=== PATIENT | female | born 1955 | race Two or more races ===

== ENCOUNTER 2018-11-28 08:58 | Inpatient (IN) | payer OTHER ==
[2018-11-28] MEDS ORDERED: SODIUM CHLORIDE 500 ML IV STA (10:18)
[2018-11-28] MEDS ORDERED: ACETAMINOPHEN 1000 MG/100 ML VIAL (NON FORMULARY) IVPB ONE (10:24)
[2018-11-28] MEDS ORDERED: ACETAMINOPHEN INJECTION 100 ML IVPB ONE (10:42)
[2018-11-28 11:01] LABS: BASO % 0.3 % (0-2.0); EOS % 1.8 % (0-4.5); HEMATOCRIT 29.2 % (32.4-45.2); HEMOGLOBIN 10.2 GM/dL (10.7-15.3); LYMPH % 20.2 % (8-40); MCH 30.3 pg (25.7-33.7); MEAN CELL VOLUME 86.6 fl (80-96); MEAN PLT VOLUME 7.7 fl (7.5-11.1); MONO % 5.6 % (3.8-10.2); NEUT % 72.1 % (42.8-82.8); PLATELET COUNT 282 K/MM3 (134-434); RBC 3.37 M/mm3 (3.60-5.2); RDW 14.8 % (11.6-15.6); WHITE BLOOD COUNT 8.5 K/mm3 (4.0-10.0)
[2018-11-28 11:24] LABS: INR 1.24 (0.83-1.09); PROTHROMBIN TIME (PATIENT) 14.7 SEC (9.7-13.0)
[2018-11-28 11:30] LABS: ALBUMIN 3.2 g/dl (3.4-5.0); ALK PHOS 148 U/L (45-117); ANION GAP 9 MMOL/L (8-16); BILIRUBIN,TOTAL 0.7 mg/dL (0.2-1); BLOOD UREA NITROGEN 14 mg/dL (7-18); CALCIUM 8.4 mg/dL (8.5-10.1); CHLORIDE 106 mmol/L (98-107); CO2 23 mmol/L (21-32); CREATININE 0.7 mg/dL (0.55-1.3); GLUCOSE,RANDOM 187 mg/dL (74-106); SGOT/AST 12 U/L (15-37); SGPT/ALT 16 U/L (13-61); SODIUM 138 mmol/L (136-145); TOT PROT 6.6 g/dl (6.4-8.2)
--- NOTE | 2018-11-28 11:48 | PDOC ---
History of Present Illness <Nakia Mora - Last Filed: 11/28/18 15:37> - General History Source: Patient, Family (daughter at bedside) Exam Limitations: No Limitations - History of Present Illness Initial Comments: 11/28/18 11:43 63-year-old female with history of hypertension, diabetes, pancreatic CA initially diagnosed in 2016 status post initial course of chemotherapy/radiation /surgery followed by ongoing chemotherapy for metastatic lung lesions stopped in April 2018 secondary to episode of shingles with plans to restart in 2 weeks presents now with 1 week of progressive cough and dyspnea and back pain. Patient has had ongoing cough with white sputum, was seen by her PCP and started on amoxicillin for a throat infection with improved throat symptoms but no change in her cough, also notes progressive pain in her upper back and ribs, and increasing dyspnea over the last week. At baseline she has no exercise limitations, but she can now barely walk around her apartment without getting short of breath. No chest pain, no palpitations, no fevers or chills since starting the antibiotics. <Miguel Lockhart - Last Filed: 11/28/18 16:24> - General Chief Complaint: Shortness of Breath Stated Complaint: BACK PAIN Time Seen by Provider: 11/28/18 09:35 Past History <Nakia Mora - Last Filed: 11/28/18 15:37> - Past Medical History Asthma: No Cancer: No Cardiac Disorders: No CVA: No COPD: No CHF: No Diabetes: Yes HTN: Yes Hypercholesterolemia: No Seizures: No - Surgical History Cholecystectomy: Yes - Immunization History Immunization Up to Date: Yes - Suicide/Smoking/Psychosocial Hx Smoking History: Never smoked Have you smoked in the past 12 months: No Information on smoking cessation initiated: No Hx Alcohol Use: No Drug/Substance Use Hx: No Substance Use Type: None <Miguel Lockhart - Last Filed: 11/28/18 16:24> - Past Medical History Allergies/Adverse Reactions: Allergies Allergy/AdvReac Type Severity Reaction Status Date / Time No Known Allergies Allergy Verified 05/16/16 17:12 Home Medications: Ambulatory Orders Ramipril [Altace] 5 mg PO DAILY 05/16/16 Amlodipine Besylate [Norvasc -] 5 mg PO DAILY 11/28/18 Amoxicillin/Potassium Clav [Amox-Clav 875-125 mg Tablet] 1 each PO BID 11/28/18 Lipase/Protease/Amylase [Creon Dr 24,000 Units Capsule] 1 each PO TID 11/28/18 Ranitidine [Zantac -] 150 mg PO DAILY 11/28/18 metFORMIN HCL [Metformin HCl] 500 mg PO BID 11/28/18 Review of Systems - Review of Systems Constitutional: Yes: Chills. No: Fever HEENTM: Yes: Throat Pain Respiratory: Yes: Cough, Shortness of Breath, SOB with Exertion Cardiac (ROS): No: Chest Pain, Edema, Syncope ABD/GI: No: Diarrhea, Nausea, Vomiting Musculoskeletal: Yes: Back Pain Neurological: No: Headache All Other Systems: Reviewed and Negative <Miguel Lockhart - Last Filed: 11/28/18 16:24> *Physical Exam - Vital Signs Last Vital Signs Temp Pulse Resp BP Pulse Ox 98.1 F 97 H 16 157/97 95 11/28/18 09:02 11/28/18 09:02 11/28/18 09:02 11/28/18 09:02 11/28/18 09:02 <Nakia Mora - Last Filed: 11/28/18 15:37> - Vital Signs Last Vital Signs Temp Pulse Resp BP Pulse Ox 98.1 F 97 H 16 157/97 95 11/28/18 09:02 11/28/18 09:02 11/28/18 09:02 11/28/18 09:02 11/28/18 09:02 - Physical Exam Comments: 11/28/18 11:45 O2 sat 95% on room air, afebrile GENERAL: The patient is awake, alert, and fully oriented, thin/cachectic but otherwise conversant, in slight distress secondary to her back pain HEAD: Normal with no signs of trauma. EYES: PERRL, EOMI, sclera anicteric, conjunctiva clear with no pallor. ENT: oropharynx clear without residual exudates or swelling. Moist mucous membranes. NECK: Normal range of motion, supple without lymphadenopathy, JVD, or masses. CHEST: Right Chemo-Port, no evidence of infection LUNGS: Breath sounds equal, coarse with rhonchi, slightly decreased at the bases bilaterally, no wheezing HEART: Regular rate and rhythm, normal S1 and S2 without murmur or rub. ABDOMEN: Soft/nontender/nondistended. BS wnl. No guarding or rebound. No palpable masses. No hepatosplenomegaly. EXTREMITIES: Normal range of motion, no edema. 2+ distal pulses. No cords, erythema, or tenderness. NEUROLOGICAL: Cranial nerves II through XII grossly intact. Normal speech, normal gait. PSYCH: Normal mood, normal affect. SKIN: Warm, Dry, no rashes or lesions noted. <Miguel Lockhart - Last Filed: 11/28/18 16:24> Moderate Sedation - Procedure Monitoring Vital Signs: Procedure Monitoring Vital Signs Temperature 98.1 F 11/28/18 09:02 Pulse Rate 97 H 11/28/18 09:02 Respiratory Rate 16 11/28/18 09:02 Blood Pressure 157/97 11/28/18 09:02 O2 Sat by Pulse Oximetry (%) 95 11/28/18 09:02 <Nakia Mora - Last Filed: 11/28/18 15:37> - Procedure Monitoring Vital Signs: Procedure Monitoring Vital Signs Temperature 98.1 F 11/28/18 09:02 Pulse Rate 97 H 11/28/18 09:02 Respiratory Rate 16 11/28/18 09:02 Blood Pressure 157/97 11/28/18 09:02 O2 Sat by Pulse Oximetry (%) 95 11/28/18 09:02 <Miguel Lockhart - Last Filed: 11/28/18 16:24> Heart Score/ECG Review #1 ECG reviewed & interpreted by me at: 11:03 General ECG Interpretation: Sinus Rhythm, Normal Rate (84), Normal Intervals ( qtc 423), No acute ischemic changes <Miguel Lockhart - Last Filed: 11/28/18 16:24> ED Treatment Course - LABORATORY CBC & Chemistry Diagram: 11/28/18 10:47 11/28/18 10:47 - ADDITIONAL ORDERS Additional order review: Laboratory Results 11/28/18 11/28/18 10:47 10:47 PT with INR 14.70 H INR 1.24 H Sodium 138 Potassium 4.0 Chloride 106 Carbon Dioxide 23 Anion Gap 9 BUN 14 Creatinine 0.7 Creat Clearance w eGFR > 60 Random Glucose 187 H Calcium 8.4 L Magnesium 2.0 Total Bilirubin 0.7 AST 12 L ALT 16 Alkaline Phosphatase 148 H Creatine Kinase 63 Troponin I < 0.02 Total Protein 6.6 Albumin 3.2 L 11/28/18 10:47 RBC 3.37 L MCV 86.6 MCHC 35.0 RDW 14.8 MPV 7.7 D Neutrophils % 72.1 D Lymphocytes % 20.2 D Monocytes % 5.6 Eosinophils % 1.8 Basophils % 0.3 - Medications Given in the ED: ED Medications Discontinued Medications Generic Name Dose Route Start Last Admin Trade Name Freq PRN Reason Stop Dose Admin Acetaminophen 1,000 mg 11/28/18 10:24 11/28/18 10:55 Ofirmev Injection - IVPB 11/28/18 10:25 1,000 mg ONCE ONE Administration Sodium Chloride 500 mls @ 500 mls/hr 11/28/18 10:18 11/28/18 10:55 Normal Saline - IV 11/28/18 11:17 500 mls/hr ASDIR STA Administration <Nakia Mora - Last Filed: 11/28/18 15:37> - LABORATORY CBC & Chemistry Diagram: 11/28/18 10:47 11/28/18 10:47 - ADDITIONAL ORDERS Additional order review: Laboratory Results 11/28/18 11/28/18 10:47 10:47 PT with INR 14.70 H INR 1.24 H Sodium 138 Potassium 4.0 Chloride 106 Carbon Dioxide 23 Anion Gap 9 BUN 14 Creatinine 0.7 Creat Clearance w eGFR > 60 Random Glucose 187 H Calcium 8.4 L Magnesium 2.0 Total Bilirubin 0.7 AST 12 L ALT 16 Alkaline Phosphatase 148 H Creatine Kinase 63 Troponin I < 0.02 Total Protein 6.6 Albumin 3.2 L 11/28/18 10:47 RBC 3.37 L MCV 86.6 MCHC 35.0 RDW 14.8 MPV 7.7 D Neutrophils % 72.1 D Lymphocytes % 20.2 D Monocytes % 5.6 Eosinophils % 1.8 Basophils % 0.3 - RADIOLOGY Radiology Studies Ordered: Category Date Time Status CHEST CT WITH CONTRAST [CT] Stat CT Scan 11/28/18 10:23 Ordered - Medications Given in the ED: ED Medications Discontinued Medications Generic Name Dose Route Start Last Admin Trade Name Freq PRN Reason Stop Dose Admin Acetaminophen 1,000 mg 11/28/18 10:24 11/28/18 10:55 Ofirmev Injection - IVPB 11/28/18 10:25 1,000 mg ONCE ONE Administration Sodium Chloride 500 mls @ 500 mls/hr 11/28/18 10:18 11/28/18 10:55 Normal Saline - IV 11/28/18 11:17 500 mls/hr ASDIR STA Administration <Miguel Lockhart - Last Filed: 11/28/18 16:24> Medical Decision Making - Medical Decision Making Documentation prepared by Nakia Mora, acting as medical claims processor for Miguel Lockhart MD 11/28/18 14:31 Dr. Flavio Ko, [facility] ([id number]), was paged at this time. The physician will call back at his earleist convenience. 11/28/18 15:37 The patient's case was discussed with Dr. Ko at this time. <Nakia Mora - Last Filed: 11/28/18 15:37> - Critical Care Time Total Critical Care Time (minutes): 75 Critical Care Statement: The care of this patient involved high complexity decision making to prevent further life threatening deterioration of the patient 's condition and/or to evaluate & treat vital organ system(s) failure or risk of failure. - Medical Decision Making 11/28/18 11:47 63-year-old female with history of hypertension and pancreatic CA. Presents with progressive dyspnea over the last week with worsening bone pain. Patient has known lung lesions and has been off chemotherapy since April 2018. Concern for progression of metastatic disease, rule out superimposed infectious process such as pneumonia. Labs, EKG CT chest, pain control Will need admission 11/28/18 13:33 Labs are within normal limits, slight anemia 10.2, troponin negative. Pain improved after IV Tylenol, awaiting CT chest. 11/28/18 15:[address] Ko, pt's oncologist - no acute indication for onc transfer , but CT does seem as though disease has progressed. Recommends admission to [facility] for management of effusions/pain/dyspnea, then can consult regarding options for chemo. Dr. Marie called 11/28/18 16:24 Accepted for inpatient tele by Dr. Marie. IR consulted for thoracentesis. <Miguel Lockhart - Last Filed: 11/28/18 16:24> *DC/Admit/Observation/Transfer <Nakia Mora - Last Filed: 11/28/18 15:37> - Discharge Dispostion Decision to Admit order: Yes <Miguel Lockhart - Last Filed: 11/28/18 16:24> Diagnosis at time of Disposition: Pancreatic cancer metastasized to lung Dyspnea Qualifiers: Dyspnea type: shortness of breath Qualified Code(s): R06.02 - Shortness of breath - Discharge Dispostion Condition at time of disposition: Guarded - Referrals Referrals: Evin Marie MD [Primary Care Provider] - - Patient Instructions - Post Discharge Activity
--- NOTE | 2018-11-28 16:15 | EKG ---
Test Reason : Blood Pressure : / mmHG Vent. Rate : 084 BPM Atrial Rate : 084 BPM P-R Int : 126 ms QRS Dur : 070 ms QT Int : 358 ms P-R-T Axes : 053 033 060 degrees QTc Int : 423 ms NORMAL SINUS RHYTHM LOW VOLTAGE QRS SEPTAL INFARCT (CITED ON OR BEFORE 16-MAY-2016) ABNORMAL ECG WHEN COMPARED WITH ECG OF 16-MAY-2016 19:17, QRS VOLTAGE HAS DECREASED Confirmed by ROGER HERRERA, ANGELY ([id number]) on 11/28/2018 4:14:40 PM Referred By: Confirmed By:ANGELY DURAN MD
[2018-11-28] MEDS ORDERED: morphine CARPU-JECT 2 MG/1 ML DISP.SYRIN IVPUSH ONE (17:51)
[2018-11-28] MEDS ORDERED: MORPHINE SULFATE 2 MG/ML VIAL ONE (18:17)
[2018-11-29] MEDS ORDERED: IBUPROFEN 400 MG TABLET (FP) PO ONE (04:16)
[2018-11-29 15:53] LABS: BF WBC & OTHER NUCLEATED CELLS 763 /mm3
[2018-11-29] MEDS ORDERED: AMPICILLIN NA/SULBACTAM NA 1.5 GM VIAL ONE (17:36)
[2018-11-29] MEDS ORDERED: SODIUM CHLORIDE 200 ML IVPB ONE (17:36)
[2018-11-29 17:40] LABS: BODY FLUID MACROPHAGES 9 %; BODY FLUID MONOCYTE 14 %
[2018-11-29] MEDS: MORPHINE SULFATE 2 MG/ML VIAL IVPUSH PRN ×2 (17:42→22:10)
[2018-11-29] MEDS: AMPICILLIN NA/SULBACTAM NA 1.5 GM in SODIUM CHLORIDE 100 ML IVPB SCH (17:43)
--- NOTE | 2018-11-29 20:51 | HP ---
DATE OF ADMISSION: 11/29/2018 This is a 63-year-old female known to have hypertension, diabetes, CA of the pancreas diagnosed 2 years ago, status post chemo and radiation, now apparently has lung mass now comes to the emergency room with complaints of shortness of breath. In the ER, it was noticed that patient had a large amount of pleural fluid on the left side. Thoracentesis was done and then got admitted. PHYSICAL EXAMINATION: General: At present, patient is comfortable in the bed. Vital Signs: Blood pressure 150/90, pulse 98, temperature 98, respirations 24. HEENT: Unremarkable. Neck: Supple. No JVD. Lungs: Bilateral heard. Heart: S1, S2 normal. No S3, S4. Abdomen: Soft. Legs: No edema. CBC: WBC 8.5, hemoglobin 10, hematocrit 39, platelets 282. Chemistry: Electrolytes are normal. INR 1.24. DIAGNOSIS: Carcinoma of the pancreas with mass in the lungs, status post thoracentesis. PLAN: Pain medication. Diet. Will get consult by Dr. Rizvi. Bertin [id number]
[2018-11-30] MEDS ORDERED: SODIUM CHLORIDE 100 ML IVPB ONE ×3 (02:00→17:05)
[2018-11-30] MEDS ORDERED: AMPICILLIN NA/SULBACTAM NA 1.5 GM VIAL ONE ×3 (02:00→17:05)
[2018-11-30] MEDS: AMPICILLIN NA/SULBACTAM NA 1.5 GM in SODIUM CHLORIDE 100 ML IVPB SCH ×3 (02:23→18:04)
[2018-11-30] MEDS: MORPHINE SULFATE 2 MG/ML VIAL IVPUSH PRN (02:27)
--- NOTE | 2018-11-30 08:51 | PN ---
Progress Note, Physician Chief Complaint: C/O pain in the Rt side of neck Chest pain is better History of Present Illness: 63 yr old female admitted with pancreatic Ca with lung mets Large pleural effusion Lt side ,S/P thorocyntesis - Current Medication List Current Medications: Active Medications Ampicillin Sodium/Sulbactam (Sodium 1.5 gm/ Sodium Chloride) 100 mls @ 200 mls/ hr IVPB Q8H-IV PETRA Last Admin: 11/30/18 02:23 Dose: 200 mls/hr Morphine Sulfate (Morphine Sulfate) 1 mg IVPUSH Q4H PRN PRN Reason: PAIN LEVEL 6-10 Last Admin: 11/30/18 02:27 Dose: 1 mg - Objective Vital Signs: Vital Signs Temperature 98.9 F 11/30/18 06:00 Pulse Rate 72 11/30/18 08:28 Respiratory Rate 18 11/30/18 08:28 Blood Pressure 129/72 11/30/18 08:28 O2 Sat by Pulse Oximetry (%) 93 L 11/29/18 21:00 Constitutional: Yes: Mild Distress Eyes: Yes: WNL HENT: Yes: WNL Neck: Yes: WNL, Supple Cardiovascular: Yes: WNL Respiratory: Yes: WNL, CTA Bilaterally Gastrointestinal: Yes: Normal Bowel Sounds ...Rectal Exam: Yes: Deferred Genitourinary: Yes: WNL Breast(s): Yes: WNL Extremities: Yes: WNL Edema: No Peripheral Pulses WNL: Yes Neurological: Yes: Alert Psychiatric: Yes: Alert Labs: CBC, BMP 11/28/18 10:47 11/28/18 10:47 INR, PTT INR 1.24 (0.83-1.09) H 11/28/18 10:47 - ....Imaging Cat Scan: Report Reviewed Assessment/Plan Regular diet Pain meds
[2018-11-30] MEDS: ACETAMINOPHEN WITH CODEINE 300MG/30MG TABLET PO PRN ×2 (10:49→20:49)
--- NOTE | 2018-11-30 19:57 | CONSULT ---
Consult Consult Specialty:: Oncology Referred by:: Medicine Reason for Consultation:: Advanced pancreatic cancer - History of Present Illness Chief Complaint: Weakness, shortness of breath, due to progression of known pancreatic cancer, with pleural effusion. History of Present Illness: Admission history as noted below: "63-year-old female with history of hypertension, diabetes, pancreatic CA initially diagnosed in 2016 status post initial course of chemotherapy/radiation /surgery followed by ongoing chemotherapy for metastatic lung lesions stopped in April 2018 secondary to episode of shingles with plans to restart in 2 weeks presents now with 1 week of progressive cough and dyspnea and back pain. Patient has had ongoing cough with white sputum, was seen by her PCP and started on amoxicillin for a throat infection with improved throat symptoms but no change in her cough, also notes progressive pain in her upper back and ribs, and increasing dyspnea over the last week. At baseline she has no exercise limitations, but she can now barely walk around her apartment without getting short of breath. No chest pain, no palpitations, no fevers or chills since starting the antibiotics." Known to Dr Flavio Ko at [facility]. Was expected to be seen in follow up on , for enrolment in a phase 1/[address] Ko aware of her admission. Patient currently without complaints. As per daughter she is mobile at home, eating well, and generally independent. - History Source History Provided By: Patient, Family Member Limitations to Obtaining History: No Limitations - Alcohol/Substance Use Hx Alcohol Use: No - Smoking History Smoking history: Never smoked Have you smoked in the past 12 months: No Home Medications - Allergies Allergies/Adverse Reactions: Allergies Allergy/AdvReac Type Severity Reaction Status Date / Time No Known Allergies Allergy Verified 05/16/16 17:12 - Home Medications Home Medications: Ambulatory Orders Ramipril [Altace] 5 mg PO DAILY 05/16/16 Amlodipine Besylate [Norvasc -] 5 mg PO DAILY 11/28/18 Amoxicillin/Potassium Clav [Amox-Clav 875-125 mg Tablet] 1 each PO BID 11/28/18 Lipase/Protease/Amylase [Jacklyn Walsh 24,000 Units Capsule] 1 each PO TID 11/28/18 Ranitidine [Zantac -] 150 mg PO DAILY 11/28/18 metFORMIN HCL [Metformin HCl] 500 mg PO BID 11/28/18 Review of Systems - Review of Systems Constitutional: reports: Unintentional Wgt. Loss Cardiovascular: reports: Shortness of Breath Respiratory: reports: Cough, Exercise Intolerance, SOB on Exertion Gastrointestinal: denies: Abdominal Pain, Constipation, Diarrhea, Rectal Bleeding Genitourinary: reports: No Symptoms Musculoskeletal: reports: Back Pain Integumentary: reports: No Symptoms Neurological: reports: No Symptoms. denies: Confusion Hematology/Lymphatic: denies: Excessive Bleeding Physical Exam Vital Signs: Vital Signs Temperature 98 F 11/30/18 17:00 Pulse Rate 87 11/30/18 17:00 Respiratory Rate 18 11/30/18 17:00 Blood Pressure 145/90 11/30/18 17:00 O2 Sat by Pulse Oximetry (%) 93 L 11/29/18 21:00 Constitutional: Yes: No Distress, Calm, Thin Eyes: Yes: Conjunctiva Clear HENT: Yes: WNL Neck: Yes: Supple, Trachea Midline Cardiovascular: Yes: Regular Rate and Rhythm, S1, S2 Respiratory: Yes: Regular, CTA Bilaterally Gastrointestinal: Yes: Normal Bowel Sounds Musculoskeletal: Yes: WNL Edema: No Integumentary: Yes: WNL Neurological: Yes: Alert, Oriented ...Motor Strength: WNL Psychiatric: Yes: Alert, Oriented Labs: CBC, BMP 11/28/18 10:47 11/28/18 10:47 Assessment/Plan Advanced metastatic pancreatic cancer, with multiple lines of prior therapy, now with prgressive disease, persenting with new symptomatic large L pleural effusion, clinically improved since thoracocentesis. If stable over next few days then can be discharged, to follow up as out patient with Dr Ko, and to be re-evaluated whether still appropriate/eligible for planned Phase 1 trial. Thoracocentesis by interventional radiology. Will need close monitoring - for re -accumulation of fluid. May benefit from Pleurex catheter.
[2018-12-01] MEDS ORDERED: AMPICILLIN NA/SULBACTAM NA 1.5 GM VIAL ONE ×4 (02:22→17:11)
[2018-12-01] MEDS ORDERED: SODIUM CHLORIDE 100 ML IVPB ONE ×3 (02:23→17:11)
[2018-12-01] MEDS: MORPHINE SULFATE 2 MG/ML VIAL IVPUSH PRN ×2 (02:45→11:10)
[2018-12-01] MEDS: AMPICILLIN NA/SULBACTAM NA 1.5 GM in SODIUM CHLORIDE 100 ML IVPB SCH ×3 (02:45→17:13)
--- NOTE | 2018-12-01 12:10 | PN ---
Progress Note, Physician Chief Complaint: Feels better History of Present Illness: Dr Cantor oncology consult appreciated - Current Medication List Current Medications: Active Medications Acetaminophen/Codeine Phosphate (Tylenol # 3 -) 1 tab PO Q6H PRN PRN Reason: PAIN LEVEL 4 - 6 Last Admin: 11/30/18 20:49 Dose: 1 tab Ampicillin Sodium/Sulbactam (Sodium 1.5 gm/ Sodium Chloride) 100 mls @ 200 mls/ hr IVPB Q8H-IV PETRA Last Admin: 12/01/18 10:21 Dose: 200 mls/hr Morphine Sulfate (Morphine Sulfate) 1 mg IVPUSH Q4H PRN PRN Reason: PAIN LEVEL 7-10 Last Admin: 12/01/18 11:10 Dose: 1 mg - Objective Vital Signs: Vital Signs Temperature 97.7 F 12/01/18 10:00 Pulse Rate 86 12/01/18 10:00 Respiratory Rate 20 12/01/18 10:00 Blood Pressure 135/86 12/01/18 10:00 O2 Sat by Pulse Oximetry (%) 94 L 12/01/18 09:00 Constitutional: Yes: Anxious Eyes: Yes: WNL HENT: Yes: WNL Neck: Yes: WNL Cardiovascular: Yes: WNL Respiratory: Yes: Poor Air Entry Gastrointestinal: Yes: Normal Bowel Sounds ...Rectal Exam: Yes: Deferred Genitourinary: Yes: WNL Edema: No Peripheral Pulses WNL: Yes Psychiatric: Yes: Alert Labs: INR, PTT INR 1.24 (0.83-1.09) H 11/28/18 10:47 Assessment/Plan DC morphine
[2018-12-01 12:31] LABS: ALBUMIN 3.2 g/dl (3.4-5.0); ALK PHOS 142 U/L (45-117); ANION GAP 9 MMOL/L (8-16); BILIRUBIN,TOTAL 0.8 mg/dL (0.2-1); BLOOD UREA NITROGEN 14 mg/dL (7-18); CALCIUM 8.3 mg/dL (8.5-10.1); CHLORIDE 101 mmol/L (98-107); CO2 25 mmol/L (21-32); CREATININE 0.9 mg/dL (0.55-1.3); GLUCOSE,RANDOM 278 mg/dL (74-106); POTASSIUM 4.1 mmol/L (3.5-5.1); SGOT/AST 14 U/L (15-37); SGPT/ALT 18 U/L (13-61); SODIUM 135 mmol/L (136-145); TOT PROT 6.8 g/dl (6.4-8.2)
--- NOTE | 2018-12-01 13:27 | PN ---
Progress Note (short form) - Note Progress Note: Patient seen in follow up. No new complaints. No acute events overnight. Denies pain. Says she is breathing comfortably. Inpatient Meds reviewed. Current Medications Generic Name Dose Route Start Last Admin Trade Name Freq PRN Reason Stop Dose Admin Acetaminophen/Codeine Phosphate 1 tab 11/30/18 08:55 11/30/18 20:49 Tylenol # 3 - PO 1 tab Q6H PRN Administration PAIN LEVEL 4 - 6 Ampicillin Sodium/Sulbactam 100 mls @ 200 mls/hr 11/29/18 18:00 12/01/18 10: 21 Sodium 1.5 gm/ Sodium Chloride IVPB 200 mls/hr Q8H-IV PETRA Administration On Examination: Last Vital Signs Temp Pulse Resp BP Pulse Ox 97.7 F 86 20 135/86 94 L 12/01/18 10:00 12/01/18 10:00 12/01/18 10:00 12/01/18 10:00 12/01/18 09:00 General: In no acute distress, sitting up, eating lunch. Extremities: No pallor or icterus. No pedal edema. No palpable lymphadenopathy. Chest: breathing comfortably, good AE generally, diminished L base Abdomen: Non-distended, non-tender, no palpable organomegaly Neuro: Alert, oriented, non-focal. Labs: CBC, BMP 12/01/18 06:20 Assessment. Advanced metastatic pancreatic cancer, with multiple lines of prior therapy, now with progressive disease, presenting with new symptomatic large L pleural effusion, clinically improved since thoracocentesis. If stable over next few days then can be discharged, to follow up as out patient with Dr Ko, and to be re-evaluated whether still appropriate/eligible for planned Phase 1 trial. Thoracocentesis by interventional radiology. Will need close monitoring - for re -accumulation of fluid. May benefit from Pleurex catheter.
[2018-12-01] MEDS: amLODIPine BESYLATE 5 MG TABLET (FP) PO SCH (14:10)
[2018-12-01 14:12] LABS: HEMATOCRIT 34.1 % (32.4-45.2); HEMOGLOBIN 10.9 GM/dL (10.7-15.3); MCH 28.3 pg (25.7-33.7); MEAN CELL VOLUME 88.4 fl (80-96); MEAN PLT VOLUME 8.6 fl (7.5-11.1); PLATELET COUNT 292 K/MM3 (134-434); RBC 3.86 M/mm3 (3.60-5.2); RDW 14.9 % (11.6-15.6); WHITE BLOOD COUNT 10.9 K/mm3 (4.0-10.0)
[2018-12-02] MEDS: AMPICILLIN NA/SULBACTAM NA 1.5 GM in SODIUM CHLORIDE 100 ML IVPB SCH ×3 (02:45→17:16)
[2018-12-02] MEDS ORDERED: AMPICILLIN NA/SULBACTAM NA 1.5 GM VIAL ONE ×3 (02:58→16:55)
[2018-12-02] MEDS ORDERED: SODIUM CHLORIDE 100 ML IVPB ONE ×3 (02:59→16:55)
[2018-12-02] MEDS: ACETAMINOPHEN WITH CODEINE 300MG/30MG TABLET PO PRN ×3 (07:22→22:57)
--- NOTE | 2018-12-02 09:40 | PN ---
Progress Note, Physician Chief Complaint: Pt lying in bed,vitals stable No new complaints today,no sob Oncology note appreciated body fluid aerobic anerobic cul negative - Current Medication List Current Medications: Active Medications Acetaminophen/Codeine Phosphate (Tylenol # 3 -) 1 tab PO Q6H PRN PRN Reason: PAIN LEVEL 4 - 6 Last Admin: 12/02/18 07:22 Dose: 1 tab Amlodipine Besylate (Norvasc -) 5 mg PO DAILY PETRA Last Admin: 12/01/18 14:10 Dose: 5 mg Ampicillin Sodium/Sulbactam (Sodium 1.5 gm/ Sodium Chloride) 100 mls @ 200 mls/ hr IVPB Q8H-IV PETRA Last Admin: 12/02/18 02:45 Dose: 200 mls/hr Metformin HCl (Glucophage -) 500 mg PO BIDAC PETRA Pancrelipase (Creon Dr 6,000 Units Capsule) 4 cap PO TIDCM PETRA Ramipril (Altace -) 5 mg PO DAILY PETRA - Objective Vital Signs: Vital Signs Temperature 97.8 F 12/02/18 05:36 Pulse Rate 84 12/02/18 05:36 Respiratory Rate 20 12/02/18 05:36 Blood Pressure 118/68 12/02/18 05:36 O2 Sat by Pulse Oximetry (%) 95 12/01/18 21:00 Constitutional: Yes: No Distress Eyes: Yes: Conjunctiva Clear HENT: Yes: Atraumatic Neck: Yes: Supple, Trachea Midline Cardiovascular: Yes: Regular Rate and Rhythm Respiratory: Yes: Regular, Diminished (Lung base lt side), On Nasal O2, Other ( Thoracocentesis site clean and dry) Gastrointestinal: Yes: Normal Bowel Sounds, Soft Musculoskeletal: Yes: WNL Extremities: Yes: WNL Edema: No Peripheral Pulses WNL: Yes Neurological: Yes: WNL, Alert ...Motor Strength: WNL Psychiatric: Yes: WNL, Alert Labs: CBC, BMP 12/01/18 06:20 12/01/18 06:20 INR, PTT INR 1.24 (0.83-1.09) H 11/28/18 10:47 Assessment/Plan Advanced metastatic pancreatic cancer,pleural effusion S/P thoracocentesis pericardial effusion HTN DM PLAN Continue meds Will f/u oncology rec pul consult Monitor PT
[2018-12-02] MEDS: metFORMIN HCL 500 MG TABLET (FP) PO SCH ×2 (10:19→16:43)
[2018-12-02] MEDS: amLODIPine BESYLATE 5 MG TABLET (FP) PO SCH (10:19)
[2018-12-02] MEDS: RAMIPRIL 5 MG CAPSULE (FP) PO SCH (10:19)
--- NOTE | 2018-12-02 11:44 | PN ---
Progress Note (short form) - Note Progress Note: PULMONARY CONSULTATION DICTATED 12/02/18 IMP DYSPNEA LARGE LEFT PLEURAL EFFUSION LIKELY MALIGNANT PERICARDIAL EFFUSION METASTATIC PANCREATIC CA WITH LVER,LUNG METS HTN DM PLAN O2 CHECK PLEURAL FLUID CHEMISTRIES,CYTOLOGY ECHOCARDIOGRAM TO EVALUATE PERICARDIAL EFFUSION MONITOR LYTES F/U CHEST X-RAY CONSIDER PLEUR-X CATHETER INSERTION DR HOPPER Problem List - Problems (1) Pleural effusion Code(s): J90 - PLEURAL EFFUSION, NOT ELSEWHERE CLASSIFIED (2) Dyspnea Code(s): R06.00 - DYSPNEA, UNSPECIFIED Qualifiers: Dyspnea type: shortness of breath Qualified Code(s): R06.02 - Shortness of breath; R06.00 - Dyspnea, unspecified; R06.01 - Orthopnea (3) Pancreatic cancer metastasized to lung Code(s): C25.9 - MALIGNANT NEOPLASM OF PANCREAS, UNSPECIFIED; C78.00 - SECONDARY MALIGNANT NEOPLASM OF UNSPECIFIED LUNG (4) Diabetes mellitus Code(s): E11.9 - TYPE 2 DIABETES MELLITUS WITHOUT COMPLICATIONS (5) Hypertension Code(s): I10 - ESSENTIAL (PRIMARY) HYPERTENSION (6) Pericardial effusion Code(s): I31.3 - PERICARDIAL EFFUSION (NONINFLAMMATORY)
--- NOTE | 2018-12-02 13:09 | CONS ---
DATE OF CONSULTATION: 12/02/2018 REFERRING PHYSICIAN: Dr. Knox HISTORY: The patient is a 63-year-old female with a past medical history of hypertension, diabetes, pancreatic cancer diagnosed in 2016 status post chemotherapy, radiation surgery followed by chemotherapy for metastatic lung lesions stopped in April 2018 secondary to shingles apparently supposed to restart in 2 weeks who presents to [facility] with complaint of a 1-week history of increasing shortness of breath, cough productive of white, occasional blood- tinged sputum, and back pain. The patient denied any nausea, vomiting, or diaphoresis. Denied any fevers or chills. The patient apparently was seen by her PMD prior to admission and started on amoxicillin secondary to a sore throat with improvement of throat symptoms but no change in her cough as well as shortness of breath. The patient's symptoms continued to worsen. She felt severe dyspnea with minimal exertion. She also has chest tightness. She presented to the emergency room with the above. In the ER, she was noted to have large left pleural effusion and a small right pleural effusion. She had a thoracentesis performed with removal of 1 L of fluid. The patient tolerated the procedure well and transferred up to medical floor for further management. The patient apparently has been followed at [facility] for chemotherapy. PAST MEDICAL HISTORY: Again, includes metastatic pancreatic carcinoma diagnosed in 2016, hypertension, diabetes. SOCIAL HISTORY: Nonsmoker. No occupational exposures. From [place] and moved to the [place] 18 years ago. CURRENT MEDICATIONS: Include Unasyn, Altace, Glucophage, Creon, Norvasc, and codeine. REVIEW OF SYSTEMS: Positive orthopnea. Positive dyspnea. Positive chest tightness. Positive cough. No chest pain, no palpitations, no nausea, no vomiting, no chills, no fevers. PHYSICAL EXAMINATION: General: The patient is a thin, well-developed female awake and alert currently in no acute distress. Vital Signs: She is currently afebrile. Blood pressure 132/88, respiratory rate 18, O2 saturation 98% on room air. HEENT: Normocephalic and atraumatic. Neck: Supple. Heart: Regular with S1, S2. Chest: Diminished breath sounds on the left 1/2 up. Abdomen: Soft. Bowel sounds are positive. Extremities: No cyanosis or edema. LABORATORIES: WBC 10.9, hemoglobin 10.9, hematocrit 34.1 with a platelet count of 292,000, INR 1.24, BUN 14, creatinine 0.9. Pleural fluid chemistries are pending. White count 763, RBC 650. There are 10 polys and [address] scan of the chest revealed bilateral large left pleural effusion with extensive atelectasis of the left lung, smaller right pleural effusion, diffuse pulmonary metastasis, left anterior mediastinal mass invading the mediastinum, moderate- large pericardial effusion, large left effusion, and diffuse hepatic metastasis. IMPRESSION: 1. Dyspnea secondary to large left pleural effusion likely malignant. 2. Advanced metastatic pancreatic carcinoma. 3. Pericardial effusion. 4. Diabetes. 5. Hypertension. PLAN: Check pleural effusion chemistries. Obtain follow up chest x-ray. Consider Pleur-X catheter insertion. Obtain echocardiogram to evaluate pericardial effusion. Supplemental O2 as needed. LIZBETH HOPPER M.D. [id number] MTDD
[2018-12-02] MEDS: LIPASE/PROTEASE/AMYLASE 6,000 UNIT CAPSULE PO SCH ×2 (13:19→17:15)
[2018-12-02 15:17] LABS: BODY FLUID ALBUMIN 2.5 g/dL (.)
--- NOTE | 2018-12-02 17:13 | PN ---
Progress Note (short form) - Note Progress Note: Thoracic Surgery: Full consult to follow. Likely has malignant pleural and pericardial effusion from advanced pancreatic cancer. Pleur-x would likely palliate while window may prevent tamponade in future. Will await cytology/pleural studies and have conversation with patient and her primary care doctor.
[2018-12-03] MEDS ORDERED: SODIUM CHLORIDE 100 ML IVPB ONE ×3 (00:50→17:08)
[2018-12-03] MEDS ORDERED: AMPICILLIN NA/SULBACTAM NA 1.5 GM VIAL ONE ×4 (00:50→17:08)
[2018-12-03] MEDS: AMPICILLIN NA/SULBACTAM NA 1.5 GM in SODIUM CHLORIDE 100 ML IVPB SCH ×3 (01:54→17:11)
[2018-12-03] MEDS: metFORMIN HCL 500 MG TABLET (FP) PO SCH ×2 (06:12→17:11)
[2018-12-03 07:04] LABS: BASO % 0.4 % (0-2.0); EOS % 3.5 % (0-4.5); HEMATOCRIT 29.9 % (32.4-45.2); HEMOGLOBIN 9.8 GM/dL (10.7-15.3); LYMPH % 23.3 % (8-40); MCH 28.4 pg (25.7-33.7); MCHC 32.6 g/dl (32.0-36.0); MEAN CELL VOLUME 87.1 fl (80-96); MONO % 5.5 % (3.8-10.2); NEUT % 67.3 % (42.8-82.8); PLATELET COUNT 265 K/MM3 (134-434); RBC 3.44 M/mm3 (3.60-5.2); RDW 14.6 % (11.6-15.6); WHITE BLOOD COUNT 7.6 K/mm3 (4.0-10.0)
[2018-12-03] MEDS: ACETAMINOPHEN WITH CODEINE 300MG/30MG TABLET PO PRN ×2 (07:21→21:40)
[2018-12-03 07:42] LABS: ALBUMIN 2.6 g/dl (3.4-5.0); ALK PHOS 122 U/L (45-117); ANION GAP 10 MMOL/L (8-16); BILIRUBIN,TOTAL 0.6 mg/dL (0.2-1); BLOOD UREA NITROGEN 15 mg/dL (7-18); CALCIUM 8.2 mg/dL (8.5-10.1); CHLORIDE 104 mmol/L (98-107); CO2 22 mmol/L (21-32); CREATININE 0.7 mg/dL (0.55-1.3); GLUCOSE,RANDOM 235 mg/dL (74-106); POTASSIUM 4.1 mmol/L (3.5-5.1); SGOT/AST 19 U/L (15-37); SGPT/ALT 26 U/L (13-61); SODIUM 135 mmol/L (136-145); TOT PROT 5.9 g/dl (6.4-8.2)
--- NOTE | 2018-12-03 09:54 | PN ---
Progress Note, Physician Chief Complaint: Pt lying in bed,vitals stable c/o headache today mornig ,controlled with pain meds pulmonary and thoracic surgery note appreciated rec pleurx catheter placement Echo report noted,LV function NL,EF 65%,pericardialeffusion present,no evidence of cardiac tamponade Oncology note appreciated body fluid aerobic anerobic cul negative - Current Medication List Current Medications: Active Medications Acetaminophen/Codeine Phosphate (Tylenol # 3 -) 1 tab PO Q6H PRN PRN Reason: PAIN LEVEL 4 - 6 Last Admin: 12/03/18 07:21 Dose: 1 tab Amlodipine Besylate (Norvasc -) 5 mg PO DAILY [facility] Last Admin: 12/02/18 10:19 Dose: 5 mg Ampicillin Sodium/Sulbactam (Sodium 1.5 gm/ Sodium Chloride) 100 mls @ 200 mls/ hr IVPB Q8H-IV [facility] Last Admin: 12/03/18 01:54 Dose: 200 mls/hr Metformin HCl (Glucophage -) 500 mg PO BIDAC [facility] Last Admin: 12/03/18 06:12 Dose: 500 mg Pancrelipase (Creon Dr 6,000 Units Capsule) 4 cap PO TIDCM [facility] Last Admin: 12/02/18 17:15 Dose: Not Given Ramipril (Altace -) 5 mg PO DAILY [facility] Last Admin: 12/02/18 10:19 Dose: 5 mg - Objective Vital Signs: Vital Signs Temperature 98.4 F 12/03/18 05:57 Pulse Rate 77 12/03/18 05:57 Respiratory Rate 18 12/03/18 05:57 Blood Pressure 122/75 12/03/18 05:57 O2 Sat by Pulse Oximetry (%) 95 12/02/18 21:00 Constitutional: Yes: No Distress Eyes: Yes: Conjunctiva Clear HENT: Yes: Atraumatic Neck: Yes: Supple, Trachea Midline Cardiovascular: Yes: Regular Rate and Rhythm Respiratory: Yes: Regular, Diminished (lt lung base) Gastrointestinal: Yes: Normal Bowel Sounds, Soft Musculoskeletal: Yes: WNL Extremities: Yes: WNL Edema: No Peripheral Pulses WNL: Yes Neurological: Yes: WNL, Alert ...Motor Strength: WNL Psychiatric: Yes: WNL Labs: CBC, BMP 12/03/18 06:30 12/03/18 06:30 INR, PTT INR 1.24 (0.83-1.09) H 11/28/18 10:47 Assessment/Plan Advanced metastatic pancreatic cancer,pleural effusion S/P thoracocentesis pericardial effusion HTN DM Head ache PLAN Continue meds Will f/u oncology rec pul f/u will monitor PT F/u chest X ray Neurology consult
[2018-12-03] MEDS ORDERED: PT OWN MED DRAWER 7, Y5N ONE (09:55)
[2018-12-03] MEDS: LIPASE/PROTEASE/AMYLASE 6,000 UNIT CAPSULE PO SCH ×4 (09:57→17:19)
[2018-12-03] MEDS: amLODIPine BESYLATE 5 MG TABLET (FP) PO SCH (09:57)
[2018-12-03] MEDS: RAMIPRIL 5 MG CAPSULE (FP) PO SCH (10:00)
--- NOTE | 2018-12-03 11:20 | PN ---
Progress Note (short form) - Note Progress Note: Sitting in bed in NAD on RA. Reports breathing feels ok. No CP or SOB. Mild dry cough. No hemoptysis. Intake & Output 11/30/18 12/01/18 12/02/18 12/03/18 23:59 23:59 23:59 23:59 Intake Total 520 1060 500 Balance 520 1060 500 Weight 114 lb Last Vital Signs Temp Pulse Resp BP Pulse Ox 98.4 F 77 18 122/75 95 12/03/18 05:57 12/03/18 05:57 12/03/18 05:57 12/03/18 05:57 12/02/18 21:00 Active Medications Acetaminophen/Codeine Phosphate (Tylenol # 3 -) 1 tab PO Q6H PRN PRN Reason: PAIN LEVEL 4 - 6 Last Admin: 12/03/18 07:21 Dose: 1 tab Amlodipine Besylate (Norvasc -) 5 mg PO DAILY [facility] Last Admin: 12/03/18 09:57 Dose: 5 mg Ampicillin Sodium/Sulbactam (Sodium 1.5 gm/ Sodium Chloride) 100 mls @ 200 mls/ hr IVPB Q8H-IV [facility] Last Admin: 12/03/18 09:57 Dose: 200 mls/hr Metformin HCl (Glucophage -) 500 mg PO BIDAC [facility] Last Admin: 12/03/18 06:12 Dose: 500 mg Pancrelipase (Creon Dr 6,000 Units Capsule) 4 cap PO TIDCM [facility] Last Admin: 12/03/18 09:57 Dose: 4 cap Ramipril (Altace -) 5 mg PO DAILY [facility] Last Admin: 12/03/18 10:00 Dose: 5 mg Constitutional: Yes: No Distress, Calm, Thin Eyes: Yes: Conjunctiva Clear HENT: Yes: WNL Neck: Yes: Supple, Trachea Midline Cardiovascular: Yes: Regular Rate and Rhythm, S1, S2 Respiratory: Yes: Bibasilar rhonchi: Left > Right, no wheeze Gastrointestinal: Yes: Normal Bowel Sounds Musculoskeletal: Yes: WNL Edema: No Integumentary: Yes: WNL Neurological: Yes: Alert, Oriented ...Motor Strength: WNL Psychiatric: Yes: Alert, Oriented Lab Laboratory Results - last 24 hr 11/29/18 12/03/18 12/03/18 14:30 06:30 06:30 WBC 7.6 RBC 3.44 L Hgb 9.8 L Hct 29.9 L MCV 87.1 MCH 28.4 MCHC 32.6 RDW 14.6 Plt Count 265 MPV 8.0 Absolute Neuts (auto) 5.1 Neutrophils % 67.3 Lymphocytes % 23.3 Monocytes % 5.5 Eosinophils % 3.5 D Basophils % 0.4 Nucleated RBC % 0 Sodium 135 L Potassium 4.1 Chloride 104 Carbon Dioxide 22 Anion Gap 10 BUN 15 Creatinine 0.7 Creat Clearance w eGFR > 60 Random Glucose 235 H Calcium 8.2 L Total Bilirubin 0.6 AST 19 ALT 26 Alkaline Phosphatase 122 H Total Protein 5.9 L Albumin 2.6 L Fluid Total Protein 3.6 Fluid Albumin 2.5 Body Fluid LDH Source 106 Fluid Amylase 11 Fluid Triglycerides 28 Problem List - Problems (1) Pleural effusion Code(s): J90 - PLEURAL EFFUSION, NOT ELSEWHERE CLASSIFIED (2) Dyspnea Code(s): R06.00 - DYSPNEA, UNSPECIFIED Qualifiers: Dyspnea type: shortness of breath Qualified Code(s): R06.02 - Shortness of breath; R06.00 - Dyspnea, unspecified; R06.01 - Orthopnea (3) Pancreatic cancer metastasized to lung Code(s): C25.9 - MALIGNANT NEOPLASM OF PANCREAS, UNSPECIFIED; C78.00 - SECONDARY MALIGNANT NEOPLASM OF UNSPECIFIED LUNG (4) Diabetes mellitus Code(s): E11.9 - TYPE 2 DIABETES MELLITUS WITHOUT COMPLICATIONS (5) Hypertension Code(s): I10 - ESSENTIAL (PRIMARY) HYPERTENSION (6) Pericardial effusion Code(s): I31.3 - PERICARDIAL EFFUSION (NONINFLAMMATORY) IMP DYSPNEA LARGE LEFT PLEURAL EFFUSION LIKELY MALIGNANT PERICARDIAL EFFUSION METASTATIC PANCREATIC CA WITH LVER,LUNG METS HTN DM PLAN O2 FOLLOW CYTOLOGY (PENDING) CONSIDERATION FOR PLEUR-X CATHETER INSERTION ONCE FINAL MICROBIOLOGY DR MARQUEZ
--- NOTE | 2018-12-03 11:31 | CONSULT ---
Consult Consult Specialty:: Thoracic Surgery Referred by:: Medicine Reason for Consultation:: pleural and pericardial effusion - History of Present Illness Chief Complaint: 63F with dyspnea - History Source History Provided By: Patient, Medical Record - Past Medical History Gastrointestinal: Yes: Other (Pancreatic cancer) - Past Surgical History Additional Surgical History: Whipple - Alcohol/Substance Use Hx Alcohol Use: No - Smoking History Smoking history: Never smoked Have you smoked in the past 12 months: No Home Medications - Allergies Allergies/Adverse Reactions: Allergies Allergy/AdvReac Type Severity Reaction Status Date / Time No Known Allergies Allergy Verified 05/16/16 17:12 - Home Medications Home Medications: Ambulatory Orders Ramipril [Altace] 5 mg PO DAILY 05/16/16 Amlodipine Besylate [Norvasc -] 5 mg PO DAILY 11/28/18 Amoxicillin/Potassium Clav [Amox-Clav 875-125 mg Tablet] 1 each PO BID 11/28/18 Lipase/Protease/Amylase [Creon Dr 24,000 Units Capsule] 1 each PO TID 11/28/18 Ranitidine [Zantac -] 150 mg PO DAILY 11/28/18 metFORMIN HCL [Metformin HCl] 500 mg PO BID 11/28/18 Family Disease History - Family Disease History Family History: Unremarkable Review of Systems - Review of Systems Constitutional: reports: No Symptoms Neck: reports: Pain on Movement Cardiovascular: reports: Shortness of Breath Respiratory: reports: Exercise Intolerance Physical Exam Vital Signs: Vital Signs Temperature 98.4 F 12/03/18 05:57 Pulse Rate 77 12/03/18 05:57 Respiratory Rate 18 12/03/18 05:57 Blood Pressure 122/75 12/03/18 05:57 O2 Sat by Pulse Oximetry (%) 95 12/02/18 21:00 Constitutional: Yes: Well Nourished, Calm Gastrointestinal: Yes: Soft, Other (scars) Extremities: Yes: WNL Labs: CBC, BMP 12/03/18 06:30 12/03/18 06:30 Imaging - Results Cat Scan: Image Reviewed Problem List - Problems (1) Dyspnea Code(s): R06.00 - DYSPNEA, UNSPECIFIED Qualifiers: Dyspnea type: shortness of breath Qualified Code(s): R06.02 - Shortness of breath; R06.00 - Dyspnea, unspecified; R06.01 - Orthopnea (2) Pancreatic cancer metastasized to lung Code(s): C25.9 - MALIGNANT NEOPLASM OF PANCREAS, UNSPECIFIED; C78.00 - SECONDARY MALIGNANT NEOPLASM OF UNSPECIFIED LUNG (3) Pericardial effusion Code(s): I31.3 - PERICARDIAL EFFUSION (NONINFLAMMATORY) (4) Pleural effusion Code(s): J90 - PLEURAL EFFUSION, NOT ELSEWHERE CLASSIFIED (5) Diabetes mellitus Code(s): E11.9 - TYPE 2 DIABETES MELLITUS WITHOUT COMPLICATIONS (6) Hypertension Code(s): I10 - ESSENTIAL (PRIMARY) HYPERTENSION Assessment/Plan Known metastatic pancreatic cancer with dyspnea and pleural and pericardial effusion (left pleural greater than right) -Will d/w Dr. Blakely but recommend drainage of both under general with placement of pleur-x; -Will need medical optimization; -Procedure likely to be done on or Sunday if physicians and patient agree.
[2018-12-04] MEDS ORDERED: AMPICILLIN NA/SULBACTAM NA 1.5 GM VIAL ONE ×3 (01:49→17:03)
[2018-12-04] MEDS ORDERED: SODIUM CHLORIDE 100 ML IVPB ONE ×3 (01:49→17:03)
[2018-12-04] MEDS: AMPICILLIN NA/SULBACTAM NA 1.5 GM in SODIUM CHLORIDE 100 ML IVPB SCH ×3 (02:08→17:11)
[2018-12-04] MEDS: metFORMIN HCL 500 MG TABLET (FP) PO SCH ×2 (06:20→17:11)
[2018-12-04] MEDS: ACETAMINOPHEN WITH CODEINE 300MG/30MG TABLET PO PRN ×2 (06:22→21:59)
[2018-12-04] MEDS ORDERED: PT OWN MED DRAWER 7, Y5N ONE ×2 (08:35→17:25)
[2018-12-04] MEDS: LIPASE/PROTEASE/AMYLASE 6,000 UNIT CAPSULE PO SCH ×3 (08:54→17:11)
--- NOTE | 2018-12-04 09:31 | PN ---
Progress Note, Physician Chief Complaint: Pt lying in bed,vitals stable No complaints today pulmonary and thoracic surgery note appreciated awaiting pleurex catheter placement and pericardial window Echo report noted,LV function NL,EF 65%,pericardialeffusion present,no evidence of cardiac tamponade Oncology note appreciated body fluid aerobic anerobic cul negative CT head negative Cardiology consult pending - Current Medication List Current Medications: Active Medications Acetaminophen/Codeine Phosphate (Tylenol # 3 -) 1 tab PO Q6H PRN PRN Reason: PAIN LEVEL 4 - 6 Last Admin: 12/04/18 06:22 Dose: 1 tab Amlodipine Besylate (Norvasc -) 5 mg PO DAILY [facility] Last Admin: 12/03/18 09:57 Dose: 5 mg Ampicillin Sodium/Sulbactam (Sodium 1.5 gm/ Sodium Chloride) 100 mls @ 200 mls/ hr IVPB Q8H-IV [facility] Last Admin: 12/04/18 02:08 Dose: 200 mls/hr Metformin HCl (Glucophage -) 500 mg PO BIDAC [facility] Last Admin: 12/04/18 06:20 Dose: 500 mg Pancrelipase (Creon Dr 6,000 Units Capsule) 4 cap PO TIDCM [facility] Last Admin: 12/04/18 08:54 Dose: 4 cap Ramipril (Altace -) 5 mg PO DAILY [facility] Last Admin: 12/03/18 10:00 Dose: 5 mg - Objective Vital Signs: Vital Signs Temperature 98.3 F 12/04/18 05:40 Pulse Rate 73 12/04/18 05:40 Respiratory Rate 18 12/04/18 05:40 Blood Pressure 135/82 12/04/18 05:40 O2 Sat by Pulse Oximetry (%) 91 L 12/03/18 21:00 Constitutional: Yes: No Distress Eyes: Yes: Conjunctiva Clear HENT: Yes: Atraumatic Neck: Yes: Supple Cardiovascular: Yes: Regular Rate and Rhythm Respiratory: Yes: Regular, Diminished (lung base) Gastrointestinal: Yes: Normal Bowel Sounds, Soft Musculoskeletal: Yes: WNL Extremities: Yes: WNL Edema: No Peripheral Pulses WNL: Yes Neurological: Yes: WNL, Alert, Oriented ...Motor Strength: WNL Psychiatric: Yes: WNL, Alert Labs: CBC, BMP 12/03/18 06:30 12/03/18 06:30 INR, PTT INR 1.24 (0.83-1.09) H 11/28/18 10:47 - ....Imaging Cat Scan: Report Reviewed Assessment/Plan Advanced metastatic pancreatic cancer,pleural effusion S/P thoracocentesis pericardial effusion HTN DM PLAN Continue meds Will f/u oncology rec pul f/u will monitor Pt for pleurex catheter placement and pericardial window neurology f/u cardiology consult
--- NOTE | 2018-12-04 09:45 | CONSULT ---
Consult - text type - Consultation Consultation Note: Neurology History of Present Illness 63-year-old female with history of hypertension, diabetes, pancreatic CA initially diagnosed in 2016 status post initial course of chemotherapy/radiation /surgery followed by ongoing chemotherapy for metastatic lung lesions stopped in April 2018 secondary to episode of shingles with plans to restart in 2 weeks presents now with 1 week of progressive cough and dyspnea and back pain. Patient has had ongoing cough with white sputum, was seen by her PCP and started on amoxicillin for a throat infection with improved throat symptoms but no change in her cough, also notes progressive pain in her upper back and ribs, and increasing dyspnea over the last week. Consulted for headache, possibly tension type and discussed with patient today. Feels it's more neck discomfort radiating to head. CT head complete and without acute changes, reviewed and discussed, patient reassured. Does feel symptoms have improved and current mgmt is effective. - General Chief Complaint: Shortness of Breath Stated Complaint: BACK PAIN Time Seen by Provider: 11/28/18 09:35 Past History - Past Medical History Asthma: No Cancer: No Cardiac Disorders: No CVA: No COPD: No CHF: No Diabetes: Yes HTN: Yes Hypercholesterolemia: No Seizures: No - Surgical History Cholecystectomy: Yes - Immunization History Immunization Up to Date: Yes - Suicide/Smoking/Psychosocial Hx Smoking History: Never smoked Have you smoked in the past 12 months: No Information on smoking cessation initiated: No Hx Alcohol Use: No Drug/Substance Use Hx: No Substance Use Type: None - Past Medical History Allergies/Adverse Reactions: Allergies Allergy/AdvReac Type Severity Reaction Status Date / Time No Known Allergies Allergy Verified 05/16/16 17:12 Active Medications Acetaminophen/Codeine Phosphate (Tylenol # 3 -) 1 tab PO Q6H PRN PRN Reason: PAIN LEVEL 4 - 6 Last Admin: 12/04/18 06:22 Dose: 1 tab Amlodipine Besylate (Norvasc -) 5 mg PO DAILY [facility] Last Admin: 12/03/18 09:57 Dose: 5 mg Ampicillin Sodium/Sulbactam (Sodium 1.5 gm/ Sodium Chloride) 100 mls @ 200 mls/ hr IVPB Q8H-IV [facility] Last Admin: 12/04/18 02:08 Dose: 200 mls/hr Metformin HCl (Glucophage -) 500 mg PO BIDAC [facility] Last Admin: 12/04/18 06:20 Dose: 500 mg Pancrelipase (Creon Dr 6,000 Units Capsule) 4 cap PO TIDCM [facility] Last Admin: 12/04/18 08:54 Dose: 4 cap Ramipril (Altace -) 5 mg PO DAILY [facility] Last Admin: 12/03/18 10:00 Dose: 5 mg Review of Systems - Review of Systems Constitutional: Yes: Chills. No: Fever HEENTM: Yes: Throat Pain Respiratory: Yes: Cough, Shortness of Breath, SOB with Exertion Cardiac (ROS): No: Chest Pain, Edema, Syncope ABD/GI: No: Diarrhea, Nausea, Vomiting Musculoskeletal: Yes: Back Pain Neurological: Yes: Headache All Other Systems: Reviewed and Negative *Physical Exam Vital Signs Period Temp Pulse Resp BP Sys/Venegas Pulse Ox Last 24 Hr 98.3 F-99.1 F 73-99 18-18 135-142/82-94 91 11/28/18 11:45 O2 sat 95% on room air, afebrile GENERAL: The patient is awake, alert, and fully oriented, thin/cachectic but otherwise conversant, in slight distress secondary to her back pain HEAD: Normal with no signs of trauma. EYES: PERRL, EOMI, sclera anicteric, conjunctiva clear with no pallor. ENT: oropharynx clear without residual exudates or swelling. Moist mucous membranes. NECK: Normal range of motion, supple without lymphadenopathy, JVD, or masses. CHEST: Right Chemo-Port, no evidence of infection LUNGS: Breath sounds equal, coarse with rhonchi, slightly decreased at the bases bilaterally, no wheezing HEART: Regular rate and rhythm, normal S1 and S2 without murmur or rub. ABDOMEN: Soft/nontender/nondistended. BS wnl. No guarding or rebound. No palpable masses. No hepatosplenomegaly. EXTREMITIES: Normal range of motion, no edema. 2+ distal pulses. No cords, erythema, or tenderness. NEUROLOGICAL: Cranial nerves II through XII grossly intact. Normal speech, normal gait. PSYCH: Normal mood, normal affect. SKIN: Warm, Dry, no rashes or lesions noted. Laboratory Results 11/28/18 11/28/18 10:47 10:47 PT with INR 14.70 H INR 1.24 H Sodium 138 Potassium 4.0 Chloride 106 Carbon Dioxide 23 Anion Gap 9 BUN 14 Creatinine 0.7 Creat Clearance w eGFR > 60 Random Glucose 187 H Calcium 8.4 L Magnesium 2.0 Total Bilirubin 0.7 AST 12 L ALT 16 Alkaline Phosphatase 148 H Creatine Kinase 63 Troponin I < 0.02 Total Protein 6.6 Albumin 3.2 L 11/28/18 10:47 RBC 3.37 L MCV 86.6 MCHC 35.0 RDW 14.8 MPV 7.7 D Neutrophils % 72.1 D Lymphocytes % 20.2 D Monocytes % 5.6 Eosinophils % 1.8 Basophils % 0.3 - RADIOLOGY CT head reviewed Medical Decision Making 63-year-old female with history of hypertension, diabetes, pancreatic CA initially diagnosed in 2016 status post initial course of chemotherapy/radiation /surgery followed by ongoing chemotherapy for metastatic lung lesions stopped in April 2018 secondary to episode of shingles with plans to restart in 2 weeks presents now with 1 week of progressive cough and dyspnea and back pain. Patient has had ongoing cough with white sputum, was seen by her PCP and started on amoxicillin for a throat infection with improved throat symptoms but no change in her cough, also notes progressive pain in her upper back and ribs, and increasing dyspnea over the last week. Consulted for headache, possibly tension type and discussed with patient today. Feels it's more neck discomfort radiating to head. CT head complete and without acute changes, reviewed and discussed, patient reassured. Does feel symptoms have improved and current mgmt is effective. Can contiue T3 for now, as improvement occurs, can take just regular tylenol. Neurologically stable without deficits. maintain hydration, continue mgmt of respiratory complaints, optimization. Will not add further medication at this time.
[2018-12-04] MEDS: RAMIPRIL 5 MG CAPSULE (FP) PO SCH (10:11)
[2018-12-04] MEDS: amLODIPine BESYLATE 5 MG TABLET (FP) PO SCH (10:11)
--- NOTE | 2018-12-04 10:21 | CON.CARD ---
Consult Consult Specialty:: Cardiology Referred by:: Dr. Chapin Knox - History of Present Illness Chief Complaint: Shortness of breath History of Present Illness: 63 year old female with known case of metastatic pancreatic carcinoma, hypertension, and type II diabetes mellitus admitted with increasing dyspnea and fatigue. Status post herpes zoster involving the left neck 5-6 months ago. Patient was found to have a large left pleural and a small right pleural effusion. She also has pulmonary metastatic disease, mediastinal mass, moderate to large pericardial effusion, and diffuse hepatic metastases. Patient underwent a left thoracentesis. She has mild productive cough with white/yellow expectoration, no history of chills or fever. No history of hemoptysis. No chest pain either at rest or with exertion, mild exertional dyspnea, no PND or orthopnea. No history of lightheadedness, dizziness, presyncope or syncope. Echocardiogram confirmed the presence of moderate pericardial effusion without evidence of cardiac tamponade (see echo report). Patient states that her chemotherapy was stopped 5-6 months ago after she developed herpes zoster. Past History: 1. As mentioned in the HPI. 2. History of herpes zoster involving the left neck. Surgical History: 1. Status post pancreatic surgery. Social History: , has three daughters and a son, does not drink or smoke. Family History: Father in his 90s, was a diabetic. Mother at age 47 following right shoulder pain. She has 5 brothers and 5 sisters Two sisters in infancy, a brother of complications of diabetes at the age of 16, another brother at age 63 of meningitis. All other siblings are apparently healthy. Active Medications Acetaminophen/Codeine Phosphate (Tylenol # 3 -) 1 tab PO Q6H PRN PRN Reason: PAIN LEVEL 4 - 6 Last Admin: 12/04/18 06:22 Dose: 1 tab Amlodipine Besylate (Norvasc -) 5 mg PO DAILY [facility] Last Admin: 12/04/18 10:11 Dose: 5 mg Ampicillin Sodium/Sulbactam (Sodium 1.5 gm/ Sodium Chloride) 100 mls @ 200 mls/ hr IVPB Q8H-IV [facility] Last Admin: 12/04/18 10:11 Dose: 200 mls/hr Metformin HCl (Glucophage -) 500 mg PO BIDAC [facility] Last Admin: 12/04/18 06:20 Dose: 500 mg Pancrelipase (Creon Dr 6,000 Units Capsule) 4 cap PO TIDCM [facility] Last Admin: 12/04/18 11:56 Dose: 4 cap Ramipril (Altace -) 5 mg PO DAILY [facility] Last Admin: 12/04/18 10:11 Dose: 5 mg Allergies: None reported. Review of Systems: Constitutional: No history of chills, fever, or night sweats, no history of unintentional weight loss. HEENT: No history of headaches, diplopia, blurred vision. No history of hoarseness, tinnitus, or hearing loss. Respiratory: See history of present illness. History of mild intermittent cough with white/yellow expectoration. No history of hemoptysis. Cardiovascular: See history of present illness. Gastrointestinal: No history of nausea, vomiting, melena or hematemesis. See history of present illness. Denies having abdominal pain or discomfort, no change in bowel habits. Genitourinary: No history of hematuria, urgency, frequency, nocturia. Musculoskeletal: No history myalgias or arthralgias. Endocrine: No history of polyuria or polydipsia. No history of intolerance to cold or warmth. Neurological: No history of dizziness, seizures, focal weakness or presyncope or syncope. Hematological/lymphatic: No history of bleeding, anemia, no history of ecchymosis. O: 63 year old female was in no acute distress. Mild pallor. No cyanosis, clubbing, or jaundice Last Vital Signs Temp Pulse Resp BP Pulse Ox 98.8 F 99 H 18 150/95 94 L 12/04/18 14:15 12/04/18 14:15 12/04/18 14:15 12/04/18 14:15 12/04/18 09:00 HEENT: Normocephalic, PERRLA, no scleral icterus, slight conjunctival pallor, no arcus senilis. Neck: Supple, slight JVD at 30 degrees, no kusmaul sign, negative HJR, carotids were equal and upstrokes were normal, no thyromegaly appreciated. Heart: PMI was in the 5th intercostal space, no heaves or thrills, S1 and S2 were normal. No murmurs, rub or gallops were appreciated. Lungs: Decreased breath sounds at the left posterior chest. Dullness on percussion. Chest: Normal AP diameter, expansion was symmetrical. Abdomen: Soft, nontender, no hepatosplenomegaly appreciated, and no palpable masses were felt. Midline surgical scar. Bowel sounds were present, no bruits were heard. Extremities: No calf tenderness or dependent edema. Pulses were equal. Sodium 135 mmol/L (136-145) L 12/03/18 06:30 Potassium 4.1 mmol/L (3.5-5.1) 12/03/18 06:30 Chloride 104 mmol/L (98-107) 12/03/18 06:30 Carbon Dioxide 22 mmol/L (21-32) 12/03/18 06:30 Anion Gap 10 MMOL/L (8-16) 12/03/18 06:30 BUN 15 mg/dL (7-18) 12/03/18 06:30 Creatinine 0.7 mg/dL (0.55-1.3) 12/03/18 06:30 Creat Clearance w eGFR > 60 (>60) 12/03/18 06:30 Random Glucose 235 mg/dL (74-106) H 12/03/18 06:30 Calcium 8.2 mg/dL (8.5-10.1) L 12/03/18 06:30 Magnesium 2.0 mg/dL (1.8-2.4) 11/28/18 10:47 Total Bilirubin 0.6 mg/dL (0.2-1) 12/03/18 06:30 AST 19 U/L (15-37) 12/03/18 06:30 ALT 26 U/L (13-61) 12/03/18 06:30 Alkaline Phosphatase 122 U/L (45-117) H 12/03/18 06:30 Creatine Kinase 63 IU/L (26-192) 11/28/18 10:47 Troponin I < 0.02 ng/ml (0.00-0.05) 11/28/18 10:47 Total Protein 5.9 g/dl (6.4-8.2) L 12/03/18 06:30 Albumin 2.6 g/dl (3.4-5.0) L 12/03/18 06:30 TSH 3.66 uIU/ml (0.358-3.74) 12/01/18 06:20 CBC WBC 7.6 K/mm3 (4.0-10.0) 12/03/18 06:30 RBC 3.44 M/mm3 (3.60-5.2) L 12/03/18 06:30 Hgb 9.8 GM/dL (10.7-15.3) L 12/03/18 06:30 Hct 29.9 % (32.4-45.2) L 12/03/18 06:30 MCV 87.1 fl (80-96) 12/03/18 06:30 MCH 28.4 pg (25.7-33.7) 12/03/18 06:30 MCHC 32.6 g/dl (32.0-36.0) 12/03/18 06:30 RDW 14.6 % (11.6-15.6) 12/03/18 06:30 Plt Count 265 K/MM3 (134-434) 12/03/18 06:30 MPV 8.0 fl (7.5-11.1) 12/03/18 06:30 Absolute Neuts (auto) 5.1 K/mm3 (1.5-8.0) 12/03/18 06:30 Neutrophils % 67.3 % (42.8-82.8) 12/03/18 06:30 Lymphocytes % 23.3 % (8-40) 12/03/18 06:30 Monocytes % 5.5 % (3.8-10.2) 12/03/18 06:30 Eosinophils % 3.5 % (0-4.5) D 12/03/18 06:30 Basophils % 0.4 % (0-2.0) 12/03/18 06:30 Nucleated RBC % 0 % (0-0) 12/03/18 06:30 EKG dated 11/28/18 Normal sinus rhythm, low voltage QRS, septal infarct (cited on or before May 16, 2016), When compared to ECG of 05/16/16, QRS voltage has decreased. Review of EKG did not reveal electrical alternan. Echocardiogram report of 12/02/18 Summary: The left ventricle is normal in size. There is mild concentric left ventricular hypertrophy. No regional wall motion abnormalities noted. Ejection fraction= 60-65% Grade I diastolic dysfunction, (abnormal relaxation pattern). Ratio E/E'=13. The right ventricular systolic function is normal. The left atrial size is normal. There is mild mitral annular calcification. There is no mitral regurgitation noted. There is mild pulmonary tricuspid regurgitation. Pulmonary artery systolic pressure is at least 25 mmHg assuming RA pressure of 3 mmHg. Moderate pericardial effusion (1-2cm) There are not echocardiographic indications of cardiac tamponade. There is a pleural effusion present. Impression: 1. Moderate pericardial effusion without evidence of cardiac tamponade, etiology : a. Malignant pericardial effusion has to be excluded. 2. Hypertension, hypertensive cardiovascular disease, poorly controlled. 3. Diabetes mellitus, type II. 4. Metastatic pancreatic carcinoma 5. Left pleural effusion, most probably malignant. 6. Anemia 7. Status post herpes zoster. 8. Left ventricular diastolic dysfunction. Recommendations: 1. BNP. 2. Pending cytology reports on pleural fluid. 3. Close follow up with echocardiograms and may require diagnostic pericardiocentesis. 4. Follow up EKG. Thank you for your referral. Tray Albarado MD., [facility]. - Past Medical History Gastrointestinal: Yes: Other (Pancreatic cancer) - Past Surgical History Additional Surgical History: Whipple - Alcohol/Substance Use Hx Alcohol Use: No - Smoking History Smoking history: Never smoked Have you smoked in the past 12 months: No Home Medications - Allergies Allergies/Adverse Reactions: Allergies Allergy/AdvReac Type Severity Reaction Status Date / Time No Known Allergies Allergy Verified 05/16/16 17:12 - Home Medications Home Medications: Ambulatory Orders Ramipril [Altace] 5 mg PO DAILY 05/16/16 Amlodipine Besylate [Norvasc -] 5 mg PO DAILY 11/28/18 Amoxicillin/Potassium Clav [Amox-Clav 875-125 mg Tablet] 1 each PO BID 11/28/18 Lipase/Protease/Amylase [Creon Dr 24,000 Units Capsule] 1 each PO TID 11/28/18 Ranitidine [Zantac -] 150 mg PO DAILY 11/28/18 metFORMIN HCL [Metformin HCl] 500 mg PO BID 11/28/18 Vital Signs: Vital Signs Temperature 98.3 F 12/04/18 05:40 Pulse Rate 73 12/04/18 05:40 Respiratory Rate 18 12/04/18 05:40 Blood Pressure 135/82 12/04/18 05:40 O2 Sat by Pulse Oximetry (%) 91 L 12/03/18 21:00 - Other Data Labs, Other Data: CBC, BMP 12/03/18 06:30 12/03/18 06:30 INR, PTT INR 1.24 (0.83-1.09) H 11/28/18 10:47
--- NOTE | 2018-12-04 14:32 | PN ---
Progress Note (short form) - Note Progress Note: PULMONARY Still some shortness of breath and chest pressure. No fevers or chills. Vital Signs Period Temp Pulse Resp BP Sys/Venegas Pulse Ox Last 24 Hr 98.2 F-99.1 F 73-99 18-18 135-158/82-97 91-94 Gen: NAD at rest Heart: RRR Lung: decreased breath sounds left base Abd: soft, nontender Ext: no edema CBC, BMP 12/03/18 06:30 12/03/18 06:30 Active Medications Acetaminophen/Codeine Phosphate (Tylenol # 3 -) 1 tab PO Q6H PRN PRN Reason: PAIN LEVEL 4 - 6 Last Admin: 12/04/18 06:22 Dose: 1 tab Amlodipine Besylate (Norvasc -) 5 mg PO DAILY [facility] Last Admin: 12/04/18 10:11 Dose: 5 mg Ampicillin Sodium/Sulbactam (Sodium 1.5 gm/ Sodium Chloride) 100 mls @ 200 mls/ hr IVPB Q8H-IV [facility] Last Admin: 12/04/18 10:11 Dose: 200 mls/hr Metformin HCl (Glucophage -) 500 mg PO BIDAC [facility] Last Admin: 12/04/18 06:20 Dose: 500 mg Pancrelipase (Creon Dr 6,000 Units Capsule) 4 cap PO TIDCM [facility] Last Admin: 12/04/18 11:56 Dose: 4 cap Ramipril (Altace -) 5 mg PO DAILY [facility] Last Admin: 12/04/18 10:11 Dose: 5 mg A/P Metastatic Pancreatic Cancer Left Pleural Effusion Pericardial Effusion HTN DM - for drainage by CTS and pleur-x placement - DVT prophylaxis
[2018-12-04] MEDS: POLYETHYLENE GLYCOL 3350 119 GM BTL PO SCH (17:32)
--- NOTE | 2018-12-04 17:57 | PN ---
Progress Note (short form) - Note Progress Note: Patient seen and examined \Complains of some SOB/ dyspnea For VATS, pleural drainage , pleurex catheter and pericardial window. Last Vital Signs Temp Pulse Resp BP Pulse Ox 97.9 F 102 H 18 149/94 94 L 12/04/18 17:33 12/04/18 17:33 12/04/18 17:33 12/04/18 17:33 12/04/18 09:00 HEENT: CAMRYN, EOM Intact Oropharynx: No thrush, No mucositis Cor: RSR, No murmurs, No gallops Lungs: diminished breath sounds LLL.RLL Abd: Soft, Normal bowel sounds, No organomegaly Ext:No significant edema Skin: No rashes, Integument intact CBC, BMP 12/03/18 06:30 12/03/18 06:30 INR, PTT INR 1.24 (0.83-1.09) H 11/28/18 10:47 Current Medications Generic Name Dose Route Start Last Admin Trade Name Freq PRN Reason Stop Dose Admin Acetaminophen/Codeine Phosphate 1 tab 11/30/18 08:55 12/04/18 06:22 Tylenol # 3 - PO 1 tab Q6H PRN Administration PAIN LEVEL 4 - 6 Amlodipine Besylate 5 mg 12/01/18 14:00 12/04/18 10:11 Norvasc - PO 5 mg DAILY [facility] Administration Ampicillin Sodium/Sulbactam 100 mls @ 200 mls/hr 11/29/18 18:00 12/04/18 17: 11 Sodium 1.5 gm/ Sodium Chloride IVPB 200 mls/hr Q8H-IV [facility] Administration Metformin HCl 500 mg 12/02/18 10:00 12/04/18 17:11 Glucophage - PO 500 mg BIDAC [facility] Administration Pancrelipase 4 cap 12/02/18 12:00 12/04/18 17:[address] 6,000 Units Capsule PO 4 cap TIDCM [facility] Administration Polyethylene Glycol 17 gm 12/04/18 17:45 12/04/18 17:32 Miralax (For Daily Use) - PO 17 grams DAILY [facility] Administration Ramipril 5 mg 12/02/18 10:00 12/04/18 10:11 Altace - PO 5 mg DAILY [facility] Administration Pancreatic ca -s/p chemotherapy Pleural effusion Pericardial effusion \ For VATS, pleural fluid drainage,pleurex, pericardial window Check PT
[2018-12-04 19:30] LABS: INR 1.18 (0.83-1.09); PROTHROMBIN TIME (PATIENT) 13.9 SEC (9.7-13.0)
[2018-12-05] MEDS ORDERED: SODIUM CHLORIDE 100 ML IVPB ONE ×2 (01:17→13:16)
[2018-12-05] MEDS ORDERED: AMPICILLIN NA/SULBACTAM NA 1.5 GM VIAL ONE ×2 (01:17→13:16)
[2018-12-05] MEDS: AMPICILLIN NA/SULBACTAM NA 1.5 GM in SODIUM CHLORIDE 100 ML IVPB SCH ×3 (02:32→17:27)
[2018-12-05] MEDS: metFORMIN HCL 500 MG TABLET (FP) PO SCH ×2 (06:21→17:10)
[2018-12-05] MEDS ORDERED: BUPIVACAINE HCL/PF 0.5% (5MG/ML) 10 ML VIAL ONE (07:30)
[2018-12-05] MEDS ORDERED: LIDOCAINE 1%/EPI 1:100000 (20 ML MULTI DOSE VIAL) ONE (07:30)
[2018-12-05] MEDS ORDERED: fentaNYL CITRATE 250 MCG/5 ML VIAL ONE (07:49)
[2018-12-05] MEDS ORDERED: MIDAZOLAM HCL 2 MG/2 ML SINGLE DOSE VIAL ONE ×3 (07:49)
[2018-12-05] MEDS ORDERED: PROPOFOL 20 ML ONE (07:49)
[2018-12-05] MEDS ORDERED: KETAMINE HCL 200 MG/20 ML VIAL ONE (07:49)
[2018-12-05] MEDS ORDERED: SUCCINYLCHOLINE CHLORIDE 200 MG/10 ML VIAL ONE (07:53)
[2018-12-05] MEDS: LIPASE/PROTEASE/AMYLASE 6,000 UNIT CAPSULE PO SCH ×3 (08:20→21:49)
[2018-12-05] MEDS ORDERED: ROCURONIUM BROMIDE 50 MG/5 ML VIAL ONE (08:21)
[2018-12-05] MEDS ORDERED: PHENYLEPHRINE HCL 10 MG/1 ML SINGLE DOSE VIAL ONE (08:43)
[2018-12-05] MEDS ORDERED: ceFAZolin SODIUM 1 GM VIAL IVPB ONE (09:10)
[2018-12-05] MEDS ORDERED: BUPIVACAINE HCL/PF 0.5% (5MG/ML) 10 ML VIAL IJ ONE (09:19)
[2018-12-05] MEDS ORDERED: LIDOCAINE 1%/EPI 1:100000 (50 ML MULTI DOSE VIAL) NR ONE (09:19)
[2018-12-05] MEDS ORDERED: ceFAZolin SODIUM 1 GM VIAL ONE (09:24)
[2018-12-05] MEDS ORDERED: DEXAMETHASONE SOD PHOSPHATE 4 MG/1 ML VIAL ONE ×2 (09:24→09:44)
[2018-12-05] MEDS ORDERED: NEOSTIGMINE METHYLSULFATE 0.5 MG/ML - 10 ML MDV ONE (09:42)
[2018-12-05] MEDS ORDERED: GLYCOPYRROLATE 0.2 MG/1 ML VIAL ONE ×2 (09:42→09:58)
--- NOTE | 2018-12-05 10:20 | OP ---
Operative Note - Note: Operative Date: 12/05/18 Pre-Operative Diagnosis: Metastatic pancreatic cancer Operation: Bronchoscopy, left vats, pericardial window, drainage of effusion, pleur-x placement Findings: Bronchoscopy: small airway, no obvious lesions VATS: >1300 in pleura of fluid with nodules on pleura; pericardium with > moderate effusion, no tamponade. All fluid serosanguineous Post-Operative Diagnosis: Same as Pre-op Surgeon: Karan Molina Electro Mechanical Technician: Junito Jarvis Anesthesiologist/ESTHETICIAN PERMANENT MAKEUP ARTIST: Gloria Haley Anesthesia: General Specimens Removed: 1250 pleural fluid, significant pericardial fluid, piece of pericardium for permanent Estimated Blood Loss (mls): 5 Drains & Tubes with Location: pleurx in left chest Operative Report Dictated: Yes
--- NOTE | 2018-12-05 10:53 | OPR ---
Patient Name: Kathrine Terrell MR#: [id number] INPATIENT PROCEDURE DATE OF ADMISSION: 11/28/2018 Procedure Date: 12/05/2018 Preoperative Diagnosis: 1. Moderate pericardial effusion; 2. Recurrent left pleural effusion; 3. Metastatic pancreatic adenocarcinoma; 4. Hypertension; 5. Diabetes mellitus; 6. Anemia; 7. Left ventricular diastolic dysfunction; 8. s/p Herpes zoster; Postoperative Diagnosis: Same. Procedure: 1. Flexible bronchoscopy; 2. Left VATS; 3. Pericardial ; 4. Pleur-x placement; 5. Intercostal nerve block. Indication: as above Surgeon(s): Dr. Karan Molina. Anesthesia: General Endotracheal Wound Classification: Clean Antibiotic Prophylaxis: Cefazolin Findings: 1. Bronchoscopy: no lesions; tiny airway. 2. Thoracoscopy: nodules in pleura. Fluid serous serosanguineous in pleural cavity (~[id number] drained), and serous in pericardial cavity.. Specimens Sent: pericardial window biopsy. Complications: none Drains / Tubes / Catheters: 1 chest tube Hardware / Implants: n/a Blood / Fluid Losses: minimal Blood / Fluids Administered: per anesthesia Post-Operative Condition: stable Indications: This patient is a 63 year-old female with metastatic pancreatic cancer referred from Oncology and Medicine for pleur-x and window. She was explained the risks, benefits, and alternatives of the procedure and she agreed and understood. Details of Procedure: The patient was taken into the operating room and placed supine on the table. She was monitored with pulse oximetry and blood pressure monitoring. She was given sedation and a double-lumen tube was placed after two attempts as there was difficulty due to the tiny size of her airway. A bronchoscopy was performed to view the airway. Lung isolation was achieved. She was then positioned in the right lateral decubitus position and lung isolation was confirmed. The chest was prepared and draped in sterile fashion. We placed a port and visualized the pleura after removing 1000cc. We then gave an local anesthesia 4 space intercostal block. We then retracted the pericardium with a stitch and removed an ~2x2cm piece for pathology while draining the serous fluid. We then injected the pleur-x tunnel with local, tunneled it to the lowest port, and placed it in the chest. The lung was expanded partially and gently. We secured the pleur-x and closed the wounds. Sterile dressings were placed. The patient tolerated the procedure well and was taken to the ICU. I was present postoperatively and after discharge she will follow up with me as an outpatient.
[2018-12-05] MEDS ORDERED: FLUMAZENIL 0.5 MG/5 ML VIAL ONE (11:00)
[2018-12-05] MEDS ORDERED: morphine CARPU-JECT 4 MG/1 ML DISP.SYRIN IVPUSH PRN (12:31)
--- NOTE | 2018-12-05 12:42 | CONSULT ---
Consultation: ICU Consult Note CONSULT REQUEST: Post-operative observation HISTORY OF PRESENT ILLNESS: HPI/Admission Hx per chart review/patient "63-year-old female with history of hypertension, diabetes, pancreatic CA initially diagnosed in 2016 status post initial course of chemotherapy/radiation /surgery followed by ongoing chemotherapy for metastatic lung lesions stopped in April 2018 secondary to episode of shingles with plans to restart in 2 weeks presents now with 1 week of progressive cough and dyspnea and back pain. Patient has had ongoing cough with white sputum, was seen by her PCP and started on amoxicillin for a throat infection with improved throat symptoms but no change in her cough, also notes progressive pain in her upper back and ribs, and increasing dyspnea over the last week. At baseline she has no exercise limitations, but she can now barely walk around her apartment without getting short of breath. No chest pain, no palpitations, no fevers or chills since starting the antibiotics." Now s/p bronchoscopy, left vats, pericardial window, drainage of effusion, pleur -x placement REVIEW OF SYSTEMS: GENERAL/CONSTITUTIONAL: No fever or chills. No weakness CARDIOVASCULAR: +L thoracic pain at operative site RESPIRATORY: Denies cough, hemoptysis GASTROINTESTINAL: No nausea, vomiting, diarrhea or constipation GENITOURINARY: No dysuria, frequency, or change in urination SKIN: No rash NEUROLOGIC: No headache, or change in strength/sensation ENDOCRINE: No increased thirst. No abnormal weight change HEMATOLOGIC/LYMPHATIC: No anemia, easy bleeding, or history of blood clots ALLERGIC/IMMUNOLOGIC: No hives or skin allergy PHYSICAL EXAMINATION GENERAL: Arousable to verbal stimuli HEAD: No signs of trauma, normocephalic, atraumatic EYES: PERRLA, EOMI, sclera anicteric, conjunctiva clear ENT: Hearing grossly normal, nares patent, oropharynx clear without exudates CHEST: L pleurex in place, dressing C/D/I LUNGS: L base decreased breath sounds; no wheeze; good air entry HEART: Regular rate and rhythm, normal S1 and S2, no murmurs appreciated, peripheral pulses normal and equal bilaterally ABDOMEN: Soft, nontender, normoactive bowel sounds. No guarding, no rebound EXTREMITIES : Normal inspection, Normal range of motion, no edema. No clubbing or cyanosis NEUROLOGICAL: Cranial nerves II through XII grossly intact. Normal speech, normal gait, no focal sensorimotor deficits SKIN: Warm, Dry ASSESSMENT/PLAN: The pt is a 63F w/ history of hypertension, diabetes, pancreatic CA initially diagnosed in 2016 status post initial course of chemotherapy/radiation/surgery followed by ongoing chemotherapy for metastatic lung lesions stopped in April 2018 secondary to episode of shingles. The patient is a now s/p bronchoscopy, left vats, pericardial window, drainage of effusion, pleur-x placement. 12/05- To ICU s/p bronchoscopy, left vats, pericardial window, drainage of effusion, pleur-x placement Neuro Acute post-operative pain -Tylenol 650 mg PO Q6H PRN -Lidoderm patch daily -Tramadol 50mg PO Q6H PRN -Morphine 4mg IV Q6H PRN CV S/p pleur-x placement -CT to water seal -Ampicillin/Sulbactam 1.5gm IV Q8H HTN -Amlodipine 5mg PO daily -Ramipril 5mg PO daily Pulm -Breathing comfortably on room air GI Nutrition -Sodium/DM diet -Pancrelipase 4cap PO TID Bowel Regimen -Miralax 17g PO daily Adequate Uop Lytes wnl IVF -LR @ 75 Heme DVT Ppx -Heparin SQ TID Endo T2DM -BGM -Metformin 500mg PO BID LTD -L pleurex -PIV Dispo: Patient to remain in ICU today Visit type - Emergency Visit Emergency Visit: Yes ED Registration Date: 11/29/18 Care time: The patient presented to the Emergency Department on the above date and was hospitalized for further evaluation of their emergent condition. - New Patient This patient is new to me today: Yes Date on this admission: 12/05/18 - Critical Care Critical Care patient: Yes Total Critical Care Time (in minutes): 40 Critical Care Statement: The care of this patient involved high complexity decision making to prevent further life threatening deterioration of the patient 's condition and/or to evaluate & treat vital organ system(s) failure or risk of failure.
--- NOTE | 2018-12-05 12:47 | PN ---
Teaching Attending Note Name of Resident: Javier Verdin ATTENDING PHYSICIAN STATEMENT I saw and evaluated the patient. I reviewed the resident's note and discussed the case with the resident. I agree with the resident's findings and plan as documented. SUBJECTIVE: Pt seen and examined in the ICU. s/p L VATS/pericardial window/pleur-x placement. Seen postop still somewhat sedated. Serosanguinous fluid in pleurvac. No air leak noted. OBJECTIVE: Vital Signs Period Temp Pulse Resp BP Sys/Venegas Pulse Ox Last 24 Hr 97.3 F-98.8 F 84-106 18-22 129-150/67-95 94-100 Intake & Output 12/02/18 12/03/18 12/04/18 12/05/18 23:59 23:59 23:59 23:59 Intake Total 500 50 400 800 Output Total 395 Balance 500 50 400 405 Weight 51.71 kg Gen: somnolent Heart: RRR Lung: decreased breath sounds left base Abd: soft, nontender Ext: no edema CBC, BMP 12/03/18 06:30 12/03/18 06:30 Active Medications Acetaminophen (Tylenol -) 650 mg PO Q6H PRN PRN Reason: PAIN Amlodipine Besylate (Norvasc -) 5 mg PO DAILY [facility] Last Admin: 12/04/18 10:11 Dose: 5 mg Heparin Sodium (Porcine) (Heparin -) 5,000 unit SQ TID [facility] Ampicillin Sodium/Sulbactam (Sodium 1.5 gm/ Sodium Chloride) 100 mls @ 200 mls/ hr IVPB Q8H-IV [facility] Last Admin: 12/05/18 02:32 Dose: 200 mls/hr Lactated Ringer's (Lactated Ringers Solution) 1,000 ml in 1,000 mls @ 75 mls/ hr IV ASDIR [facility] Lidocaine (Lidoderm Patch -) 1 patch TP DAILY [facility] Metformin HCl (Glucophage -) 500 mg PO BIDAC [facility] Last Admin: 12/05/18 06:21 Dose: 500 mg Miscellaneous (Lidoderm Patch Removal) 1 each MC DAILY@2200 [facility] Morphine Sulfate (Morphine Injection -) 4 mg IVPUSH Q6H PRN PRN Reason: PAIN LEVEL 7 - 10 Pancrelipase (Creon Dr 6,000 Units Capsule) 4 cap PO TIDCM [facility] Last Admin: 12/05/18 08:20 Dose: Not Given Polyethylene Glycol (Miralax (For Daily Use) -) 17 gm PO DAILY [facility] Last Admin: 12/04/18 17:32 Dose: 17 grams Ramipril (Altace -) 5 mg PO DAILY [facility] Last Admin: 12/04/18 10:11 Dose: 5 mg Tramadol HCl (Ultram -) 50 mg PO Q6H PRN PRN Reason: PAIN LEVEL 4 - 6 ASSESSMENT AND PLAN: Metastatic Pancreatic Cancer Left Pleural Effusion Pericardial Effusion s/p L VATS/pericardial window/pleur-x placement HTN DM - pain control - incentive spirometry - PO as tolerated - monitor chest tube output - on empiric antibiotics - DVT prophylaxis - can likely transfer to floor in AM
[2018-12-05] MEDS ORDERED: morphine SULFATE 4 MG/ML VIAL ONE (13:11)
[2018-12-05] MEDS: LACTATED RINGERS SOLUTION 1,000 ML/1,000 ML INFUS.BAG IV SCH (13:15)
[2018-12-05] MEDS ORDERED: morphine SULFATE 4 MG/ML VIAL IVPUSH PRN (13:34)
--- NOTE | 2018-12-05 14:15 | SURG ---
Surgery Safety Patrol Officer Note Safety Patrol Officer: Junito Jarvis PA-C Date of Service: 12/05/18 Diagnosis: Pericardial effusion, Malignant pleural effusion Procedure: Bronchoscopy, left vats, pericardial window, drainage of effusion, pleur-x placement I was present for the entirety of the operative procedure. For further detail, please refer to operative report.
--- NOTE | 2018-12-05 15:22 | PN ---
Progress Note, Physician Chief Complaint: Pt seen in the ICU sedated,but arousable to verbal stimuli S/p bronchoscopy pericardial window LT VATS,PLeur-x catheter placement, - Current Medication List Current Medications: Active Medications Acetaminophen (Tylenol -) 650 mg PO Q6H PRN PRN Reason: PAIN Amlodipine Besylate (Norvasc -) 5 mg PO DAILY [facility] Last Admin: 12/04/18 10:11 Dose: 5 mg Heparin Sodium (Porcine) (Heparin -) 5,000 unit SQ TID [facility] Ampicillin Sodium/Sulbactam (Sodium 1.5 gm/ Sodium Chloride) 100 mls @ 200 mls/ hr IVPB Q8H-IV [facility] Last Admin: 12/05/18 13:17 Dose: 200 mls/hr Lactated Ringer's (Lactated Ringers Solution) 1,000 ml in 1,000 mls @ 75 mls/ hr IV ASDIR [facility] Last Admin: 12/05/18 13:15 Dose: 75 mls/hr Lidocaine (Lidoderm Patch -) 1 patch TP DAILY [facility] Metformin HCl (Glucophage -) 500 mg PO BIDAC [facility] Last Admin: 12/05/18 06:21 Dose: 500 mg Miscellaneous (Lidoderm Patch Removal) 1 each MC DAILY@2200 [facility] Morphine Sulfate (Morphine Sulfate) 4 mg IVPUSH Q6H PRN PRN Reason: PAIN LEVEL 7 - 10 Pancrelipase (Creon Dr 6,000 Units Capsule) 4 cap PO TIDCM [facility] Last Admin: 12/05/18 08:20 Dose: Not Given Polyethylene Glycol (Miralax (For Daily Use) -) 17 gm PO DAILY [facility] Last Admin: 12/04/18 17:32 Dose: 17 grams Ramipril (Altace -) 5 mg PO DAILY [facility] Last Admin: 12/04/18 10:11 Dose: 5 mg Tramadol HCl (Ultram -) 50 mg PO Q6H PRN PRN Reason: PAIN LEVEL 4 - 6 - Objective Vital Signs: Vital Signs Temperature 98.0 F 12/05/18 14:00 Pulse Rate 101 H 12/05/18 14:00 Respiratory Rate 12/05/18 14:00 Blood Pressure 141/83 12/05/18 14:00 O2 Sat by Pulse Oximetry (%) 96 12/05/18 12:15 Constitutional: Yes: Well Nourished Eyes: Yes: WNL HENT: Yes: WNL Neck: Yes: WNL Cardiovascular: Yes: Regular Rate and Rhythm Respiratory: Yes: Diminished (lt lung base,lt pleural catheter,chest tube draining fluid) Gastrointestinal: Yes: WNL, Normal Bowel Sounds Musculoskeletal: Yes: WNL Extremities: Yes: WNL Edema: No Peripheral Pulses WNL: Yes Wound/Incision: Yes: Dressing Dry and Intact ...Motor Strength: WNL Labs: CBC, BMP 12/03/18 06:30 12/03/18 06:30 INR, PTT INR 1.18 (0.83-1.09) H 12/04/18 18:20 - ....Imaging Chest X-ray: Report Reviewed Assessment/Plan s/p bronchoscopy,pericardial window,lt pleure-x catheter placement Advanced metastatic pancreatic cancer,pleural effusion S/P thoracocentesis pericardial effusion HTN DM PLAN Continue pain meds and antibiotics Will f/u oncology rec pul f/u will monitor Pt
[2018-12-05] MEDS: RAMIPRIL 5 MG CAPSULE (FP) PO SCH (17:09)
[2018-12-05] MEDS: amLODIPine BESYLATE 5 MG TABLET (FP) PO SCH (17:09)
[2018-12-05] MEDS: POLYETHYLENE GLYCOL 3350 119 GM BTL PO SCH ×2 (17:13→18:49)
[2018-12-05] MEDS: morphine SULFATE 4 MG/ML VIAL IVPUSH PRN (17:20)
[2018-12-05] MEDS: HEPARIN NA (PORCINE) 5,000 UNITS/ML 1ML VIAL SQ SCH ×2 (17:25→21:40)
[2018-12-05] MEDS: LIDOCAINE 5% TOPICAL PATCH TP SCH (17:38)
[2018-12-05] MEDS ORDERED: PT OWN MED DRAWER 7, Y5N ONE (17:39)
[2018-12-05] MEDS: INSULIN SLIDING SCALE (NOVOLOG) 1 VIAL SQ SCH (21:52)
[2018-12-06] MEDS: AMPICILLIN NA/SULBACTAM NA 1.5 GM in SODIUM CHLORIDE 100 ML IVPB SCH ×2 (01:55→10:56)
[2018-12-06] MEDS: HEPARIN NA (PORCINE) 5,000 UNITS/ML 1ML VIAL SQ SCH ×3 (06:25→21:25)
[2018-12-06] MEDS: INSULIN SLIDING SCALE (NOVOLOG) 1 VIAL SQ SCH ×4 (06:27→21:36)
[2018-12-06 06:36] LABS: BASO % 0.3 % (0-2.0); HEMATOCRIT 35.4 % (32.4-45.2); HEMOGLOBIN 11.3 GM/dL (10.7-15.3); LYMPH % 10.5 % (8-40); MCH 27.7 pg (25.7-33.7); MEAN CELL VOLUME 86.5 fl (80-96); MEAN PLT VOLUME 8.5 fl (7.5-11.1); MONO % 6.6 % (3.8-10.2); NEUT % 82.6 % (42.8-82.8); PLATELET COUNT 317 K/MM3 (134-434); RBC 4.09 M/mm3 (3.60-5.2); RDW 14.6 % (11.6-15.6); WHITE BLOOD COUNT 17.1 K/mm3 (4.0-10.0)
[2018-12-06 07:08] LABS: ALBUMIN 2.5 g/dl (3.4-5.0); ALK PHOS 146 U/L (45-117); ANION GAP 7 MMOL/L (8-16); BILIRUBIN,TOTAL 1.1 mg/dL (0.2-1); BLOOD UREA NITROGEN 12 mg/dL (7-18); CALCIUM 8.3 mg/dL (8.5-10.1); CHLORIDE 100 mmol/L (98-107); CO2 26 mmol/L (21-32); CREATININE 0.7 mg/dL (0.55-1.3); GLUCOSE,RANDOM 222 mg/dL (74-106); MAGNESIUM 1.8 mg/dL (1.8-2.4); PHOSPHOROUS 3.7 mg/dL (2.5-4.9); POTASSIUM 4.3 mmol/L (3.5-5.1); SGOT/AST 14 U/L (15-37); SGPT/ALT 18 U/L (13-61); SODIUM 132 mmol/L (136-145); TOT PROT 5.9 g/dl (6.4-8.2)
--- NOTE | 2018-12-06 07:18 | PN ---
Physical Exam: SUBJECTIVE: Patient seen and examined OBJECTIVE: Vital Signs Period Temp Pulse Resp BP Sys/Venegas Pulse Ox Last 24 Hr 97.3 F-99.9 F 83-106 18-23 117-149/67-83 96-100 GENERAL: Arousable to verbal stimuli HEAD: No signs of trauma, normocephalic, atraumatic EYES: PERRLA, EOMI, sclera anicteric, conjunctiva clear ENT: Hearing grossly normal, nares patent, oropharynx clear without exudates CHEST: L pleurex in place, dressing C/D/I LUNGS: L base decreased breath sounds; no wheeze; good air entry HEART: Regular rate and rhythm, normal S1 and S2, no murmurs appreciated, peripheral pulses normal and equal bilaterally ABDOMEN: Soft, nontender, normoactive bowel sounds. No guarding, no rebound EXTREMITIES : Normal inspection, Normal range of motion, no edema. No clubbing or cyanosis NEUROLOGICAL: Cranial nerves II through XII grossly intact. Normal speech, normal gait, no focal sensorimotor deficits SKIN: Warm, Dry ASSESSMENT/PLAN: The pt is a 63F w/ history of hypertension, T2DM, pancreatic CA initially diagnosed in 2015 status post initial course of chemotherapy/radiation/surgery followed by ongoing chemotherapy for metastatic lung lesions stopped in April 2018 secondary to episode of shingles. The patient is a now s/p bronchoscopy, left vats, pericardial window, drainage of effusion, pleur-x placement. 12/05- To ICU s/p bronchoscopy, left vats, pericardial window, drainage of effusion, pleur-x placement 12/06- Tx to floor Neuro Acute post-operative pain -Tylenol 650 mg PO Q6H PRN -Lidoderm patch daily -Tramadol 50mg PO Q6H PRN -Morphine 4mg IV Q6H PRN CV S/p pleur-x placement -CT to water seal -Ampicillin/Sulbactam 1.5gm IV Q8H HTN -Amlodipine 5mg PO daily -Ramipril 5mg PO daily Pulm Breathing comfortably on room air s/p Pleur-x placement -To waterseal GI Nutrition -Sodium/DM diet -Pancrelipase 4cap PO TID Bowel Regimen -Miralax 17g PO daily Adequate Uop Lytes wnl IVF -LR @ 75 Heme DVT Ppx -Heparin SQ TID Endo T2DM -BGM -Metformin 500mg PO BID LTD -L pleurex -PIV Dispo: Patient no longer requires ICU level of care. Will transfer to 7w today. Visit type - Emergency Visit Emergency Visit: Yes ED Registration Date: 11/29/18 Care time: The patient presented to the Emergency Department on the above date and was hospitalized for further evaluation of their emergent condition. - New Patient This patient is new to me today: No - Critical Care Critical Care patient: Yes Total Critical Care Time (in minutes): 35 Critical Care Statement: The care of this patient involved high complexity decision making to prevent further life threatening deterioration of the patient 's condition and/or to evaluate & treat vital organ system(s) failure or risk of failure.
--- NOTE | 2018-12-06 08:40 | PN ---
Progress Note (short form) - Note Progress Note: POD 1, s/p Bronchoscopy, left vats, pericardial window, drainage of effusion, pleur-x placement, for metastatic pancreatic cancer Pt seen and examined on Am rounds. Has some pain with deep inspiration, otherwise feeling better. No issues overnight. Denies cp/sob at this time. Vital Signs Temp 98.2 F 12/06/18 10:00 Pulse 98 H 12/06/18 12:00 Resp 21 H 12/06/18 12:00 BP 133/81 12/06/18 12:00 Pulse Ox 96 12/06/18 10:00 Intake & Output 12/05/18 12/06/18 12/06/18 23:59 11:59 23:59 Intake Total 1300 1100 Output Total 1070 985 Balance 230 115 Weight 110 lb 10.753 oz Intake: IV 600 900 LACTATED RINGERS SOLUTION 600 900 1,000 ml In 1,000 ml @ 75 mls/hr IV ASDIR [facility] Rx #:[id number] IVPB 500 200 Oral Supplement 200 Output: Chest Tube Drainage 770 85 Left Anterior Chest 770 85 Urine 300 900 Void 300 900 Other: Voiding Method Bedpan Bedpan # Unmeasured Voids Void 2 Bowel Movement No Weight Measurement Method Built in Bedscale CBC, BMP 12/06/18 05:30 12/06/18 05:30 Gen: laying in bed with eyes closed, opens eyes to voice. Resp: breathing unlabored on RA Lungs: decreased breath sounds at base of left lung. No crackles or rhonchi. Dressing c/d/i, serosanguinous drainage from tube (650ml at 6AM) A/P: 63 y/o F w/ PMHx HTN, DM, pancreatic CA initially treated with chemotherapy /radiation/surgery followed by ongoing chemotherapy for metastatic lung lesions , now a/w progressive cough/dyspnea due to pleural and pericardial effusion, now POD 1 s/p Bronchoscopy, left vats, pericardial window, drainage of effusion , pleur-x placement. Afebrile, tachy to high 90s/low 100s, remainder of VSS. WBC increasing, possibly from inflammation of surgery -Trend wbc -Pain control -Continue chest tube drainage (to water seal) -Remainder of plan per attending d/w attending Dr Molina
--- NOTE | 2018-12-06 08:54 | PN ---
Progress Note (short form) - Note Progress Note: POD #1 - s/p VATS/pericardial window under GA. VSS. Pt. doing well, sitting up comfortably in bed eating breakfast. No complaints. No apparent anesthetic complications noted. Continue current care.
--- NOTE | 2018-12-06 09:54 | PN ---
Progress Note, Physician Chief Complaint: Pt seen in the ICU,and examined Lying in bed,feels comfortable,no sob Afebrile,Elevated WBC noted S/p bronchoscopy pericardial window LT VATS,PLeur-x catheter placement, Catheter draining blood stained fluid Chest x ray stable - Current Medication List Current Medications: Active Medications Acetaminophen (Tylenol -) 650 mg PO Q6H PRN PRN Reason: PAIN Amlodipine Besylate (Norvasc -) 5 mg PO DAILY [facility] Last Admin: 12/05/18 17:09 Dose: 5 mg Heparin Sodium (Porcine) (Heparin -) 5,000 unit SQ TID [facility] Last Admin: 12/06/18 06:25 Dose: 5,000 unit Ampicillin Sodium/Sulbactam (Sodium 1.5 gm/ Sodium Chloride) 100 mls @ 200 mls/ hr IVPB Q8H-IV [facility] Last Admin: 12/06/18 01:55 Dose: 200 mls/hr Lactated Ringer's (Lactated Ringers Solution) 1,000 ml in 1,000 mls @ 75 mls/ hr IV ASDIR [facility] Last Admin: 12/05/18 13:15 Dose: 75 mls/hr Insulin Aspart (Novolog Vial Sliding Scale -) 1 vial SQ ACHS [facility]; Protocol Last Admin: 12/06/18 06:27 Dose: 6 units Lidocaine (Lidoderm Patch -) 1 patch TP DAILY [facility] Last Admin: 12/05/18 17:38 Dose: 1 patch Miscellaneous (Lidoderm Patch Removal) 1 each MC DAILY@2200 [facility] Last Admin: 12/06/18 00:00 Dose: 1 each Morphine Sulfate (Morphine Sulfate) 4 mg IVPUSH Q4H PRN PRN Reason: PAIN LEVEL 7 - 10 Last Admin: 12/05/18 17:20 Dose: 4 mg Pancrelipase (Creon Dr 6,000 Units Capsule) 4 cap PO TIDCM [facility] Last Admin: 12/05/18 21:49 Dose: Not Given Polyethylene Glycol (Miralax (For Daily Use) -) 17 gm PO DAILY [facility] Last Admin: 12/05/18 18:49 Dose: 17 grams Ramipril (Altace -) 5 mg PO DAILY [facility] Last Admin: 12/05/18 17:09 Dose: 5 mg Tramadol HCl (Ultram -) 50 mg PO Q6H PRN PRN Reason: PAIN LEVEL 4 - 6 - Objective Vital Signs: Vital Signs Temperature 99.9 F H 12/06/18 05:59 Pulse Rate 90 12/06/18 07:59 Respiratory Rate 20 12/06/18 07:59 Blood Pressure 122/75 12/06/18 07:59 O2 Sat by Pulse Oximetry (%) 96 12/06/18 08:00 Constitutional: Yes: No Distress Eyes: Yes: Conjunctiva Clear HENT: Yes: Atraumatic Neck: Yes: Supple, Trachea Midline Cardiovascular: Yes: Regular Rate and Rhythm Respiratory: Yes: Regular, Diminished, Other (pleure-x catheter draining blood stained fluid) Gastrointestinal: Yes: WNL, Normal Bowel Sounds Musculoskeletal: Yes: WNL Extremities: Yes: WNL Edema: No Peripheral Pulses WNL: Yes Wound/Incision: Yes: Dressing Dry and Intact Neurological: Yes: WNL, Alert ...Motor Strength: WNL Psychiatric: Yes: WNL, Alert Labs: CBC, BMP 12/06/18 05:30 12/06/18 05:30 INR, PTT INR 1.18 (0.83-1.09) H 12/04/18 18:20 - ....Imaging Chest X-ray: Report Reviewed Assessment/Plan s/p bronchoscopy,pericardial window,lt pleure-x catheter placement Advanced metastatic pancreatic cancer,pleural effusion S/P thoracocentesis pericardial effusion HTN DM PLAN Continue pain meds and antibiotics Will f/u oncology rec pul f/u,thoracic surgery f/u will monitor wbc,If persistently elevated ID consult
--- NOTE | 2018-12-06 10:00 | PN ---
Progress Note (short form) - Note Progress Note: Neurology History of Present Illness 63-year-old female with history of hypertension, diabetes, pancreatic CA initially diagnosed in 2016 status post initial course of chemotherapy/radiation /surgery followed by ongoing chemotherapy for metastatic lung lesions stopped in April 2018 secondary to episode of shingles with plans to restart in 2 weeks presents now with 1 week of progressive cough and dyspnea and back pain. Patient has had ongoing cough with white sputum, was seen by her PCP and started on amoxicillin for a throat infection with improved throat symptoms but no change in her cough, also notes progressive pain in her upper back and ribs, and increasing dyspnea over the last week. Consulted for headache, possibly tension type. Completed pericardial window with VATS. CT surgery note reviewed. Feels it's more neck discomfort radiating to head. CT head complete and without acute changes, reviewed and discussed, patient reassured. Does feel symptoms have improved and current mgmt is effective. In ICU under close monitoring. Active Medications Acetaminophen (Tylenol -) 650 mg PO Q6H PRN PRN Reason: PAIN Amlodipine Besylate (Norvasc -) 5 mg PO DAILY [facility] Last Admin: 12/05/18 17:09 Dose: 5 mg Heparin Sodium (Porcine) (Heparin -) 5,000 unit SQ TID [facility] Last Admin: 12/06/18 06:25 Dose: 5,000 unit Ampicillin Sodium/Sulbactam (Sodium 1.5 gm/ Sodium Chloride) 100 mls @ 200 mls/ hr IVPB Q8H-IV [facility] Last Admin: 12/06/18 01:55 Dose: 200 mls/hr Lactated Ringer's (Lactated Ringers Solution) 1,000 ml in 1,000 mls @ 75 mls/ hr IV ASDIR [facility] Last Admin: 12/05/18 13:15 Dose: 75 mls/hr Insulin Aspart (Novolog Vial Sliding Scale -) 1 vial SQ ACHS [facility]; Protocol Last Admin: 12/06/18 06:27 Dose: 6 units Lidocaine (Lidoderm Patch -) 1 patch TP DAILY [facility] Last Admin: 12/05/18 17:38 Dose: 1 patch Miscellaneous (Lidoderm Patch Removal) 1 each MC DAILY@2200 [facility] Last Admin: 12/06/18 00:00 Dose: 1 each Morphine Sulfate (Morphine Sulfate) 4 mg IVPUSH Q4H PRN PRN Reason: PAIN LEVEL 7 - 10 Last Admin: 12/05/18 17:20 Dose: 4 mg Pancrelipase (Creon Dr 6,000 Units Capsule) 4 cap PO TIDCM [facility] Last Admin: 12/05/18 21:49 Dose: Not Given Polyethylene Glycol (Miralax (For Daily Use) -) 17 gm PO DAILY [facility] Last Admin: 12/05/18 18:49 Dose: 17 grams Ramipril (Altace -) 5 mg PO DAILY [facility] Last Admin: 12/05/18 17:09 Dose: 5 mg Tramadol HCl (Ultram -) 50 mg PO Q6H PRN PRN Reason: PAIN LEVEL 4 - 6 *Physical Exam Vital Signs Period Temp Pulse Resp BP Sys/Venegas Pulse Ox Last 24 Hr 97.3 F-99.9 F 83-106 18-23 117-149/67-83 96-100 11/28/18 11:45 O2 sat 95% on room air, afebrile GENERAL: The patient is awake, alert, and fully oriented, thin/cachectic but otherwise conversant, in slight distress secondary to her back pain HEAD: Normal with no signs of trauma. EYES: PERRL, EOMI, sclera anicteric, conjunctiva clear with no pallor. ENT: oropharynx clear without residual exudates or swelling. Moist mucous membranes. NECK: Normal range of motion, supple without lymphadenopathy, JVD, or masses. CHEST: Right Chemo-Port, no evidence of infection LUNGS: Breath sounds equal, coarse with rhonchi, slightly decreased at the bases bilaterally, no wheezing HEART: Regular rate and rhythm, normal S1 and S2 without murmur or rub. ABDOMEN: Soft/nontender/nondistended. BS wnl. No guarding or rebound. No palpable masses. No hepatosplenomegaly. EXTREMITIES: Normal range of motion, no edema. 2+ distal pulses. No cords, erythema, or tenderness. NEUROLOGICAL: Cranial nerves II through XII grossly intact. Normal speech, normal gait. PSYCH: Normal mood, normal affect. SKIN: Warm, Dry, no rashes or lesions noted. CBCD WBC 17.1 K/mm3 (4.0-10.0) H 12/06/18 05:30 RBC 4.09 M/mm3 (3.60-5.2) 12/06/18 05:30 Hgb 11.3 GM/dL (10.7-15.3) 12/06/18 05:30 Hct 35.4 % (32.4-45.2) D 12/06/18 05:30 MCV 86.5 fl (80-96) 12/06/18 05:30 MCHC 32.0 g/dl (32.0-36.0) 12/06/18 05:30 RDW 14.6 % (11.6-15.6) 12/06/18 05:30 Plt Count 317 K/MM3 (134-434) 12/06/18 05:30 MPV 8.5 fl (7.5-11.1) 12/06/18 05:30 CMP Sodium 132 mmol/L (136-145) L 12/06/18 05:30 Potassium 4.3 mmol/L (3.5-5.1) 12/06/18 05:30 Chloride 100 mmol/L (98-107) 12/06/18 05:30 Carbon Dioxide 26 mmol/L (21-32) 12/06/18 05:30 Anion Gap 7 MMOL/L (8-16) L 12/06/18 05:30 BUN 12 mg/dL (7-18) 12/06/18 05:30 Creatinine 0.7 mg/dL (0.55-1.3) 12/06/18 05:30 Creat Clearance w eGFR > 60 (>60) 12/06/18 05:30 Random Glucose 222 mg/dL (74-106) H 12/06/18 05:30 Calcium 8.3 mg/dL (8.5-10.1) L 12/06/18 05:30 Total Bilirubin 1.1 mg/dL (0.2-1) H 12/06/18 05:30 AST 14 U/L (15-37) L 12/06/18 05:30 ALT 18 U/L (13-61) 12/06/18 05:30 Alkaline Phosphatase 146 U/L (45-117) H 12/06/18 05:30 Total Protein 5.9 g/dl (6.4-8.2) L 12/06/18 05:30 Albumin 2.5 g/dl (3.4-5.0) L 12/06/18 05:30 CARDIAC ENZYMES Creatine Kinase 63 IU/L (26-192) 11/28/18 10:47 Troponin I < 0.02 ng/ml (0.00-0.05) 11/28/18 10:47 - RADIOLOGY CT head reviewed Medical Decision Making 63-year-old female with history of hypertension, diabetes, pancreatic CA initially diagnosed in 2016 status post initial course of chemotherapy/radiation /surgery followed by ongoing chemotherapy for metastatic lung lesions stopped in April 2018 secondary to episode of shingles with plans to restart in 2 weeks presents now with 1 week of progressive cough and dyspnea and back pain. Patient has had ongoing cough with white sputum, was seen by her PCP and started on amoxicillin for a throat infection with improved throat symptoms but no change in her cough, also notes progressive pain in her upper back and ribs, and increasing dyspnea over the last week. Consulted for headache, possibly tension type and discussed with patient today. Feels it's more neck discomfort radiating to head. Completed pericardial window with VATS. CT surgery note reviewed. Feels it's more neck discomfort radiating to head. CT head complete and without acute changes, reviewed and discussed, patient reassured. Does feel symptoms have improved and current mgmt is effective. In ICU under close monitoring. On Tramadol for now, as improvement occurs, can take just regular tylenol. Neurologically stable without deficits. maintain hydration, continue mgmt of respiratory complaints, optimization. Critical care time 35 mins.
[2018-12-06] MEDS ORDERED: PORTA CATH FLUSH 10 ML IVPUSH PRN (10:28)
[2018-12-06] MEDS: LIPASE/PROTEASE/AMYLASE 6,000 UNIT CAPSULE PO SCH ×3 (10:52→17:09)
[2018-12-06] MEDS ORDERED: SODIUM CHLORIDE 100 ML IVPB ONE (10:55)
[2018-12-06] MEDS ORDERED: PT OWN MED DRAWER 7, Y5N ONE ×2 (10:55→21:51)
[2018-12-06] MEDS ORDERED: AMPICILLIN NA/SULBACTAM NA 1.5 GM VIAL ONE (10:55)
--- NOTE | 2018-12-06 10:56 | PN ---
Progress Note (short form) - Note Progress Note: THORACIC SURGERY: Pod #1 Some pain on inspiration but breathing better. serosang drainage from tube. HD stable. WBC elevated. Trend daily but suspect from inflammation of surgery. Plan: 7w transfer, po pain meds, VNS consult, possible cap and dc home with 3x week drainage on Sunday, but dc will be up to Dr. Marie. Problem List - Problems (1) Dyspnea Code(s): R06.00 - DYSPNEA, UNSPECIFIED Qualifiers: Dyspnea type: shortness of breath Qualified Code(s): R06.02 - Shortness of breath; R06.00 - Dyspnea, unspecified; R06.01 - Orthopnea (2) Pancreatic cancer metastasized to lung Code(s): C25.9 - MALIGNANT NEOPLASM OF PANCREAS, UNSPECIFIED; C78.00 - SECONDARY MALIGNANT NEOPLASM OF UNSPECIFIED LUNG (3) Pericardial effusion Code(s): I31.3 - PERICARDIAL EFFUSION (NONINFLAMMATORY) (4) Pleural effusion Code(s): J90 - PLEURAL EFFUSION, NOT ELSEWHERE CLASSIFIED (5) Diabetes mellitus Code(s): E11.9 - TYPE 2 DIABETES MELLITUS WITHOUT COMPLICATIONS (6) Hypertension Code(s): I10 - ESSENTIAL (PRIMARY) HYPERTENSION
[2018-12-06] MEDS: RAMIPRIL 5 MG CAPSULE (FP) PO SCH (10:57)
[2018-12-06] MEDS: ACETAMINOPHEN 325 MG TABLET (FP) PO PRN ×2 (10:58→20:49)
[2018-12-06] MEDS: amLODIPine BESYLATE 5 MG TABLET (FP) PO SCH (10:58)
[2018-12-06] MEDS: LIDOCAINE 5% TOPICAL PATCH TP SCH (11:19)
[2018-12-06] MEDS: POLYETHYLENE GLYCOL 3350 119 GM BTL PO SCH (11:19)
--- NOTE | 2018-12-06 12:51 | PN ---
Teaching Attending Note Name of Resident: Javier Verdin ATTENDING PHYSICIAN STATEMENT I saw and evaluated the patient. I reviewed the resident's note and discussed the case with the resident. I agree with the resident's findings and plan as documented. SUBJECTIVE: Patient seen and examined in the ICU. Awake and alert. Some mild discomfort at the PleureX insertion site. Improving SOB. CXR: small left apical PTX OBJECTIVE: Intake & Output 12/03/18 12/04/18 12/05/18 12/06/18 23:59 23:59 23:59 23:59 Intake Total 50 400 1800 1100 Output Total 1075 985 Balance 50 400 725 115 Weight 110 lb 10.753 oz Last Vital Signs Temp Pulse Resp BP Pulse Ox 98.2 F 96 H 23 H 121/81 96 12/06/18 10:00 12/06/18 10:00 12/06/18 10:00 12/06/18 10:00 12/06/18 08:00 Active Medications Acetaminophen (Tylenol -) 650 mg PO Q6H PRN PRN Reason: PAIN Last Admin: 12/06/18 10:58 Dose: 650 mg Amlodipine Besylate (Norvasc -) 5 mg PO DAILY [facility] Last Admin: 12/06/18 10:58 Dose: 5 mg Heparin Sodium (Porcine) (Heparin -) 5,000 unit SQ TID [facility] Last Admin: 12/06/18 06:25 Dose: 5,000 unit IV Flush (Drew-Cath Flush) 10 ml IVPUSH PRN PRN PRN Reason: when ivf not infusing Ampicillin Sodium/Sulbactam (Sodium 1.5 gm/ Sodium Chloride) 100 mls @ 200 mls/ hr IVPB Q8H-IV [facility] Last Admin: 12/06/18 10:56 Dose: 200 mls/hr Lactated Ringer's (Lactated Ringers Solution) 1,000 ml in 1,000 mls @ 75 mls/ hr IV ASDIR [facility] Last Admin: 12/05/18 13:15 Dose: 75 mls/hr Insulin Aspart (Novolog Vial Sliding Scale -) 1 vial SQ ACHS [facility]; Protocol Last Admin: 12/06/18 12:28 Dose: 2 units Lidocaine (Lidoderm Patch -) 1 patch TP DAILY [facility] Last Admin: 12/06/18 11:19 Dose: 1 patch Miscellaneous (Lidoderm Patch Removal) 1 each MC DAILY@2200 [facility] Last Admin: 12/06/18 00:00 Dose: 1 each Morphine Sulfate (Morphine Sulfate) 4 mg IVPUSH Q4H PRN PRN Reason: PAIN LEVEL 7 - 10 Last Admin: 12/05/18 17:20 Dose: 4 mg Pancrelipase (Creon Dr 6,000 Units Capsule) 4 cap PO TIDCM [facility] Last Admin: 12/06/18 11:00 Dose: 4 cap Polyethylene Glycol (Miralax (For Daily Use) -) 17 gm PO DAILY [facility] Last Admin: 12/06/18 11:19 Dose: 17 grams Ramipril (Altace -) 5 mg PO DAILY [facility] Last Admin: 12/06/18 10:57 Dose: 5 mg Tramadol HCl (Ultram -) 50 mg PO Q6H PRN PRN Reason: PAIN LEVEL 4 - 6 Gen: Awake and alert Heart: RRR Lung: decreased breath sounds left base Abd: soft, nontender Ext: no edema Laboratory Results - last 24 hr 12/05/18 12/05/18 12/06/18 21:35 21:41 01:43 WBC RBC Hgb Hct MCV MCH MCHC RDW Plt Count MPV Absolute Neuts (auto) Neutrophils % Lymphocytes % Monocytes % Eosinophils % Basophils % Nucleated RBC % Sodium Potassium Chloride Carbon Dioxide Anion Gap BUN Creatinine Creat Clearance w eGFR POC Glucometer > 400 > [phone] Random Glucose Calcium Phosphorus Magnesium Total Bilirubin AST ALT Alkaline Phosphatase Total Protein Albumin 12/06/18 12/06/18 12/06/18 05:30 05:30 06:02 WBC 17.1 H RBC 4.09 Hgb 11.3 Hct 35.4 D MCV 86.5 MCH 27.7 MCHC 32.0 RDW 14.6 Plt Count 317 MPV 8.5 Absolute Neuts (auto) 14.1 H Neutrophils % 82.6 D Lymphocytes % 10.5 D Monocytes % 6.6 Eosinophils % 0.0 D Basophils % 0.3 Nucleated RBC % 0 Sodium 132 L Potassium 4.3 Chloride 100 Carbon Dioxide 26 Anion Gap 7 L BUN 12 Creatinine 0.7 Creat Clearance w eGFR > 60 POC Glucometer [phone] Random Glucose 222 H Calcium 8.3 L Phosphorus 3.7 Magnesium 1.8 Total Bilirubin 1.1 H AST 14 L ALT 18 Alkaline Phosphatase 146 H Total Protein 5.9 L Albumin 2.5 L ASSESSMENT AND PLAN: Metastatic Pancreatic Cancer Left Pleural Effusion Pericardial Effusion s/p L VATS/pericardial window/pleur-x placement HTN DM - pain control - incentive spirometry - PO as tolerated - monitor chest tube output - on empiric antibiotics - DVT prophylaxis - 7W Dr iVllar
[2018-12-06 14:19] VITALS: BMI 22.2
[2018-12-06] MEDS: LACTATED RINGERS SOLUTION 1,000 ML/1,000 ML INFUS.BAG IV SCH ×2 (14:44→18:34)
[2018-12-06] MEDS: LIDOCAINE PATCH REMOVAL MC SCH ×2 (21:25)
[2018-12-06] MEDS ORDERED: INSULIN (NOVOLOG) ASPART 100 UNITS/ML 10ML VIAL ONE (21:28)
[2018-12-06] MEDS: traMADol HCL 50 MG TABLET PO PRN (21:40)
[2018-12-07] MEDS: HEPARIN NA (PORCINE) 5,000 UNITS/ML 1ML VIAL SQ SCH ×3 (06:13→22:13)
[2018-12-07] MEDS: INSULIN SLIDING SCALE (NOVOLOG) 1 VIAL SQ SCH ×4 (06:17→22:16)
[2018-12-07] MEDS: traMADol HCL 50 MG TABLET PO PRN (07:09)
[2018-12-07 07:13] LABS: BASO % 0.6 % (0-2.0); EOS % 2.2 % (0-4.5); HEMATOCRIT 32.5 % (32.4-45.2); HEMOGLOBIN 10.4 GM/dL (10.7-15.3); LYMPH % 15.4 % (8-40); MCH 27.8 pg (25.7-33.7); MEAN CELL VOLUME 86.9 fl (80-96); MEAN PLT VOLUME 8.5 fl (7.5-11.1); MONO % 4.5 % (3.8-10.2); NEUT % 77.3 % (42.8-82.8); PLATELET COUNT 300 K/MM3 (134-434); RBC 3.73 M/mm3 (3.60-5.2); RDW 14.9 % (11.6-15.6); WHITE BLOOD COUNT 12.2 K/mm3 (4.0-10.0)
[2018-12-07 07:40] LABS: ALBUMIN 2.1 g/dl (3.4-5.0); ALK PHOS 119 U/L (45-117); ANION GAP 7 MMOL/L (8-16); BILIRUBIN,TOTAL 1.1 mg/dL (0.2-1); BLOOD UREA NITROGEN 11 mg/dL (7-18); CALCIUM 8.1 mg/dL (8.5-10.1); CHLORIDE 101 mmol/L (98-107); CO2 26 mmol/L (21-32); CREATININE 0.5 mg/dL (0.55-1.3); GLUCOSE,RANDOM 164 mg/dL (74-106); MAGNESIUM 1.8 mg/dL (1.8-2.4); PHOSPHOROUS 3.1 mg/dL (2.5-4.9); POTASSIUM 3.8 mmol/L (3.5-5.1); SGOT/AST 25 U/L (15-37); SGPT/ALT 25 U/L (13-61); SODIUM 134 mmol/L (136-145); TOT PROT 5.2 g/dl (6.4-8.2)
[2018-12-07] MEDS ORDERED: PT OWN MED DRAWER 7, Y5N ONE ×2 (08:34→16:38)
[2018-12-07] MEDS: LIPASE/PROTEASE/AMYLASE 6,000 UNIT CAPSULE PO SCH ×3 (08:35→16:32)
--- NOTE | 2018-12-07 09:20 | PN ---
Progress Note, Physician Chief Complaint: Pt seen ,and examined Lying in bed,feels comfortable,no sob,mild pain at pleur-X site Afebrile, WBC coming down S/p bronchoscopy pericardial window LT VATS,PLeur-x catheter placement, Catheter draining serosanginous fluid Chest x ray stable - Current Medication List Current Medications: Active Medications Acetaminophen (Tylenol -) 650 mg PO Q6H PRN PRN Reason: PAIN Last Admin: 12/06/18 20:49 Dose: 650 mg Amlodipine Besylate (Norvasc -) 5 mg PO DAILY [facility] Last Admin: 12/06/18 10:58 Dose: 5 mg Heparin Sodium (Porcine) (Heparin -) 5,000 unit SQ TID [facility] Last Admin: 12/07/18 06:13 Dose: 5,000 unit IV Flush (Drew-Cath Flush) 10 ml IVPUSH PRN PRN PRN Reason: when ivf not infusing Lactated Ringer's (Lactated Ringers Solution) 1,000 ml in 1,000 mls @ 75 mls/ hr IV ASDIR [facility] Last Admin: 12/06/18 18:34 Dose: 75 mls/hr Insulin Aspart (Novolog Vial Sliding Scale -) 1 vial SQ ACHS [facility]; Protocol Last Admin: 12/07/18 06:17 Dose: 2 units Lidocaine (Lidoderm Patch -) 1 patch TP DAILY [facility] Last Admin: 12/06/18 11:19 Dose: 1 patch Miscellaneous (Lidoderm Patch Removal) 1 each MC DAILY@2200 [facility] Last Admin: 12/06/18 21:25 Dose: 1 each Morphine Sulfate (Morphine Sulfate) 4 mg IVPUSH Q4H PRN PRN Reason: PAIN LEVEL 7 - 10 Last Admin: 12/05/18 17:20 Dose: 4 mg Pancrelipase (Creon Dr 6,000 Units Capsule) 4 cap PO TIDCM [facility] Last Admin: 12/07/18 08:35 Dose: Not Given Polyethylene Glycol (Miralax (For Daily Use) -) 17 gm PO DAILY [facility] Last Admin: 12/06/18 11:19 Dose: 17 grams Ramipril (Altace -) 5 mg PO DAILY [facility] Last Admin: 12/06/18 10:57 Dose: 5 mg Tramadol HCl (Ultram -) 50 mg PO Q6H PRN PRN Reason: PAIN LEVEL 4 - 6 Last Admin: 12/07/18 07:09 Dose: 50 mg - Objective Vital Signs: Vital Signs Temperature 98.1 F 12/07/18 06:00 Pulse Rate 81 12/07/18 06:00 Respiratory Rate 20 12/07/18 06:00 Blood Pressure 135/76 12/07/18 06:00 O2 Sat by Pulse Oximetry (%) 97 12/07/18 02:45 Constitutional: Yes: No Distress Eyes: Yes: Conjunctiva Clear HENT: Yes: Atraumatic Neck: Yes: Supple, Trachea Midline Cardiovascular: Yes: Regular Rate and Rhythm Respiratory: Yes: Diminished (lt lung base), Other (pleur-x catheter draining serosanginous fluid) Gastrointestinal: Yes: Normal Bowel Sounds, Soft Musculoskeletal: Yes: WNL Extremities: Yes: WNL Edema: No Peripheral Pulses WNL: Yes Wound/Incision: Yes: Dressing Dry and Intact Neurological: Yes: WNL ...Motor Strength: WNL Psychiatric: Yes: WNL Labs: CBC, BMP 12/07/18 06:00 12/07/18 06:00 INR, PTT INR 1.18 (0.83-1.09) H 12/04/18 18:20 Assessment/Plan s/p bronchoscopy,pericardial window,lt pleure-x catheter placement Advanced metastatic pancreatic cancer,pleural effusion S/P thoracocentesis pericardial effusion HTN DM leucocytosis coming down PLAN Continue pain meds and antibiotics Will f/u oncology rec pul f/u,thoracic surgery f/u will monitor wbc,If persistently elevated ID consult VNS consult
[2018-12-07] MEDS: LIDOCAINE 5% TOPICAL PATCH TP SCH (10:36)
[2018-12-07] MEDS: amLODIPine BESYLATE 5 MG TABLET (FP) PO SCH (10:36)
[2018-12-07] MEDS: POLYETHYLENE GLYCOL 3350 119 GM BTL PO SCH (10:37)
[2018-12-07] MEDS: RAMIPRIL 5 MG CAPSULE (FP) PO SCH (10:37)
--- NOTE | 2018-12-07 10:55 | PN ---
Progress Note (short form) - Note Progress Note: Neurology History of Present Illness 63-year-old female with history of hypertension, diabetes, pancreatic CA initially diagnosed in 2016 status post initial course of chemotherapy/radiation /surgery followed by ongoing chemotherapy for metastatic lung lesions stopped in April 2018 secondary to episode of shingles with plans to restart in 2 weeks presents now with 1 week of progressive cough and dyspnea and back pain. Patient has had ongoing cough with white sputum, was seen by her PCP and started on amoxicillin for a throat infection with improved throat symptoms but no change in her cough, also notes progressive pain in her upper back and ribs, and increasing dyspnea over the last week. Consulted for headache, possibly tension type. Completed pericardial window with VATS. CT surgery note reviewed. No longer in ICU, now floor status. Not having subsequent head or neck pain, normal range of motion. No radiculary symptoms or deficits. Active Medications Acetaminophen (Tylenol -) 650 mg PO Q6H PRN PRN Reason: PAIN Last Admin: 12/06/18 20:49 Dose: 650 mg Amlodipine Besylate (Norvasc -) 5 mg PO DAILY [facility] Last Admin: 12/07/18 10:36 Dose: 5 mg Heparin Sodium (Porcine) (Heparin -) 5,000 unit SQ TID [facility] Last Admin: 12/07/18 06:13 Dose: 5,000 unit IV Flush (Drew-Cath Flush) 10 ml IVPUSH PRN PRN PRN Reason: when ivf not infusing Lactated Ringer's (Lactated Ringers Solution) 1,000 ml in 1,000 mls @ 75 mls/ hr IV ASDIR [facility] Last Admin: 12/06/18 18:34 Dose: 75 mls/hr Insulin Aspart (Novolog Vial Sliding Scale -) 1 vial SQ ACHS [facility]; Protocol Last Admin: 12/07/18 11:04 Dose: 4 units Lidocaine (Lidoderm Patch -) 1 patch TP DAILY [facility] Last Admin: 12/07/18 10:36 Dose: 1 patch Miscellaneous (Lidoderm Patch Removal) 1 each MC DAILY@2200 [facility] Last Admin: 12/06/18 21:25 Dose: 1 each Morphine Sulfate (Morphine Sulfate) 4 mg IVPUSH Q4H PRN PRN Reason: PAIN LEVEL 7 - 10 Last Admin: 12/05/18 17:20 Dose: 4 mg Pancrelipase (Creon Dr 6,000 Units Capsule) 4 cap PO TIDCM [facility] Last Admin: 12/07/18 11:02 Dose: 4 cap Polyethylene Glycol (Miralax (For Daily Use) -) 17 gm PO DAILY [facility] Last Admin: 12/07/18 10:37 Dose: 17 grams Ramipril (Altace -) 5 mg PO DAILY [facility] Last Admin: 12/07/18 10:37 Dose: 5 mg Tramadol HCl (Ultram -) 50 mg PO Q6H PRN PRN Reason: PAIN LEVEL 4 - 6 Last Admin: 12/07/18 07:09 Dose: 50 mg *Physical Exam Vital Signs Temperature 98.1 F 12/07/18 06:00 Pulse Rate 81 12/07/18 06:00 Respiratory Rate 20 12/07/18 06:00 Blood Pressure 135/76 12/07/18 06:00 O2 Sat by Pulse Oximetry (%) 97 12/07/18 02:45 11/28/18 11:45 O2 sat 95% on room air, afebrile GENERAL: The patient is awake, alert, and fully oriented, thin/cachectic but otherwise conversant, in slight distress secondary to her back pain HEAD: Normal with no signs of trauma. EYES: PERRL, EOMI, sclera anicteric, conjunctiva clear with no pallor. ENT: oropharynx clear without residual exudates or swelling. Moist mucous membranes. NECK: Normal range of motion, supple without lymphadenopathy, JVD, or masses. CHEST: Right Chemo-Port, no evidence of infection LUNGS: Breath sounds equal, coarse with rhonchi, slightly decreased at the bases bilaterally, no wheezing HEART: Regular rate and rhythm, normal S1 and S2 without murmur or rub. ABDOMEN: Soft/nontender/nondistended. BS wnl. No guarding or rebound. No palpable masses. No hepatosplenomegaly. EXTREMITIES: Normal range of motion, no edema. 2+ distal pulses. No cords, erythema, or tenderness. NEUROLOGICAL: Cranial nerves II through XII grossly intact. Normal speech, normal gait. PSYCH: Normal mood, normal affect. SKIN: Warm, Dry, no rashes or lesions noted. Laboratory Values CBCD WBC 12.2 K/mm3 (4.0-10.0) H 12/07/18 06:00 RBC 3.73 M/mm3 (3.60-5.2) 12/07/18 06:00 Hgb 10.4 GM/dL (10.7-15.3) L 12/07/18 06:00 Hct 32.5 % (32.4-45.2) 12/07/18 06:00 MCV 86.9 fl (80-96) 12/07/18 06:00 MCHC 32.0 g/dl (32.0-36.0) 12/07/18 06:00 RDW 14.9 % (11.6-15.6) 12/07/18 06:00 Plt Count 300 K/MM3 (134-434) 12/07/18 06:00 MPV 8.5 fl (7.5-11.1) 12/07/18 06:00 CMP Sodium 134 mmol/L (136-145) L 12/07/18 06:00 Potassium 3.8 mmol/L (3.5-5.1) 12/07/18 06:00 Chloride 101 mmol/L (98-107) 12/07/18 06:00 Carbon Dioxide 26 mmol/L (21-32) 12/07/18 06:00 Anion Gap 7 MMOL/L (8-16) L 12/07/18 06:00 BUN 11 mg/dL (7-18) 12/07/18 06:00 Creatinine 0.5 mg/dL (0.55-1.3) L 12/07/18 06:00 Creat Clearance w eGFR > 60 (>60) 12/07/18 06:00 Random Glucose 164 mg/dL (74-106) H 12/07/18 06:00 Calcium 8.1 mg/dL (8.5-10.1) L 12/07/18 06:00 Total Bilirubin 1.1 mg/dL (0.2-1) H 12/07/18 06:00 AST 25 U/L (15-37) 12/07/18 06:00 ALT 25 U/L (13-61) 12/07/18 06:00 Alkaline Phosphatase 119 U/L (45-117) H 12/07/18 06:00 Total Protein 5.2 g/dl (6.4-8.2) L 12/07/18 06:00 Albumin 2.1 g/dl (3.4-5.0) L 12/07/18 06:00 CARDIAC ENZYMES Creatine Kinase 63 IU/L (26-192) 11/28/18 10:47 Troponin I < 0.02 ng/ml (0.00-0.05) 11/28/18 10:47 - RADIOLOGY CT head reviewed Medical Decision Making 63-year-old female with history of hypertension, diabetes, pancreatic CA initially diagnosed in 2016 status post initial course of chemotherapy/radiation /surgery followed by ongoing chemotherapy for metastatic lung lesions stopped in April 2018 secondary to episode of shingles with plans to restart in 2 weeks presents now with 1 week of progressive cough and dyspnea and back pain. Patient has had ongoing cough with white sputum, was seen by her PCP and started on amoxicillin for a throat infection with improved throat symptoms but no change in her cough, also notes progressive pain in her upper back and ribs, and increasing dyspnea over the last week. Consulted for headache, possibly tension type and discussed with patient today. Feels it's more neck discomfort radiating to head. Completed pericardial window with VATS. CT surgery note reviewed. FNo longer in ICU, now floor status. Not having subsequent head or neck pain, normal range of motion. No radiculary symptoms or deficits. On Tramadol for now, as improvement occurs, can take just regular tylenol. Neurologically stable without deficits. maintain hydration, continue mgmt of respiratory complaints, optimization.
[2018-12-07] MEDS ORDERED: INSULIN (NOVOLOG) ASPART 100 UNITS/ML 10ML VIAL ONE (11:02)
[2018-12-07] MEDS: morphine SULFATE 4 MG/ML VIAL IVPUSH PRN ×2 (12:04→12:06)
[2018-12-07] MEDS: LACTATED RINGERS SOLUTION 1,000 ML/1,000 ML INFUS.BAG IV SCH ×2 (12:45→22:05)
--- NOTE | 2018-12-07 16:25 | PN ---
Progress Note, Physician History of Present Illness: PULMONARY NO DISTRESS,-SOB - Current Medication List Current Medications: Active Medications Acetaminophen (Tylenol -) 650 mg PO Q6H PRN PRN Reason: PAIN Last Admin: 12/06/18 20:49 Dose: 650 mg Amlodipine Besylate (Norvasc -) 5 mg PO DAILY [facility] Last Admin: 12/07/18 10:36 Dose: 5 mg Heparin Sodium (Porcine) (Heparin -) 5,000 unit SQ TID [facility] Last Admin: 12/07/18 06:13 Dose: 5,000 unit IV Flush (Drew-Cath Flush) 10 ml IVPUSH PRN PRN PRN Reason: when ivf not infusing Lactated Ringer's (Lactated Ringers Solution) 1,000 ml in 1,000 mls @ 75 mls/ hr IV ASDIR [facility] Last Admin: 12/07/18 12:45 Dose: 75 mls/hr Insulin Aspart (Novolog Vial Sliding Scale -) 1 vial SQ ACHS [facility]; Protocol Last Admin: 12/07/18 11:04 Dose: 4 units Lidocaine (Lidoderm Patch -) 1 patch TP DAILY [facility] Last Admin: 12/07/18 10:36 Dose: 1 patch Miscellaneous (Lidoderm Patch Removal) 1 each MC DAILY@2200 [facility] Last Admin: 12/06/18 21:25 Dose: 1 each Morphine Sulfate (Morphine Sulfate) 4 mg IVPUSH Q4H PRN PRN Reason: PAIN LEVEL 7 - 10 Last Admin: 12/07/18 12:06 Dose: 4 mg Pancrelipase (Creon Dr 6,000 Units Capsule) 4 cap PO TIDCM [facility] Last Admin: 12/07/18 11:02 Dose: 4 cap Polyethylene Glycol (Miralax (For Daily Use) -) 17 gm PO DAILY [facility] Last Admin: 12/07/18 10:37 Dose: 17 grams Ramipril (Altace -) 5 mg PO DAILY [facility] Last Admin: 12/07/18 10:37 Dose: 5 mg Tramadol HCl (Ultram -) 50 mg PO Q6H PRN PRN Reason: PAIN LEVEL 4 - 6 Last Admin: 12/07/18 07:09 Dose: 50 mg - Objective Vital Signs: Vital Signs Temperature 97.4 F L 12/07/18 13:45 Pulse Rate 99 H 12/07/18 13:45 Respiratory Rate 20 12/07/18 13:45 Blood Pressure 129/80 12/07/18 13:45 O2 Sat by Pulse Oximetry (%) 97 12/07/18 10:00 Constitutional: Yes: Calm, Thin Eyes: Yes: WNL HENT: Yes: WNL Neck: Yes: WNL Cardiovascular: Yes: Regular Rate and Rhythm, S1, S2 Respiratory: Yes: Diminished Gastrointestinal: Yes: Normal Bowel Sounds, Soft Extremities: Yes: WNL Edema: No Labs: CBC, BMP 12/07/18 06:00 12/07/18 06:00 INR, PTT INR 1.18 (0.83-1.09) H 12/04/18 18:20 Problem List - Problems (1) Pleural effusion Code(s): J90 - PLEURAL EFFUSION, NOT ELSEWHERE CLASSIFIED (2) Dyspnea Code(s): R06.00 - DYSPNEA, UNSPECIFIED Qualifiers: Dyspnea type: shortness of breath Qualified Code(s): R06.02 - Shortness of breath; R06.00 - Dyspnea, unspecified; R06.01 - Orthopnea (3) Pancreatic cancer metastasized to lung Code(s): C25.9 - MALIGNANT NEOPLASM OF PANCREAS, UNSPECIFIED; C78.00 - SECONDARY MALIGNANT NEOPLASM OF UNSPECIFIED LUNG (4) Diabetes mellitus Code(s): E11.9 - TYPE 2 DIABETES MELLITUS WITHOUT COMPLICATIONS (5) Hypertension Code(s): I10 - ESSENTIAL (PRIMARY) HYPERTENSION (6) Pericardial effusion Code(s): I31.3 - PERICARDIAL EFFUSION (NONINFLAMMATORY) Assessment/Plan ASSESSMENT AND PLAN: Metastatic Pancreatic Cancer Left Pleural Effusion Pericardial Effusion s/p L VATS/pericardial window/pleur-x placement HTN DM - pain control - incentive spirometry - PO as tolerated - monitor chest tube output - antibiotics DR HOPPER
--- NOTE | 2018-12-07 22:08 | PN ---
Progress Note, Physician Chief Complaint: pancreatic cancer History of Present Illness: No complaints. Denies pain. No overnight events. - Current Medication List Current Medications: Active Medications Acetaminophen (Tylenol -) 650 mg PO Q6H PRN PRN Reason: PAIN Last Admin: 12/06/18 20:49 Dose: 650 mg Amlodipine Besylate (Norvasc -) 5 mg PO DAILY [facility] Last Admin: 12/07/18 10:36 Dose: 5 mg Heparin Sodium (Porcine) (Heparin -) 5,000 unit SQ TID [facility] Last Admin: 12/07/18 16:31 Dose: 5,000 unit IV Flush (Drew-Cath Flush) 10 ml IVPUSH PRN PRN PRN Reason: when ivf not infusing Lactated Ringer's (Lactated Ringers Solution) 1,000 ml in 1,000 mls @ 75 mls/ hr IV ASDIR [facility] Last Admin: 12/07/18 12:45 Dose: 75 mls/hr Insulin Aspart (Novolog Vial Sliding Scale -) 1 vial SQ ACHS [facility]; Protocol Last Admin: 12/07/18 16:32 Dose: 4 units Lidocaine (Lidoderm Patch -) 1 patch TP DAILY [facility] Last Admin: 12/07/18 10:36 Dose: 1 patch Miscellaneous (Lidoderm Patch Removal) 1 each MC DAILY@2200 [facility] Last Admin: 12/06/18 21:25 Dose: 1 each Morphine Sulfate (Morphine Sulfate) 4 mg IVPUSH Q4H PRN PRN Reason: PAIN LEVEL 7 - 10 Last Admin: 12/07/18 12:06 Dose: 4 mg Pancrelipase (Creon Dr 6,000 Units Capsule) 4 cap PO TIDCM [facility] Last Admin: 12/07/18 16:32 Dose: 4 cap Polyethylene Glycol (Miralax (For Daily Use) -) 17 gm PO DAILY [facility] Last Admin: 12/07/18 10:37 Dose: 17 grams Ramipril (Altace -) 5 mg PO DAILY [facility] Last Admin: 12/07/18 10:37 Dose: 5 mg Tramadol HCl (Ultram -) 50 mg PO Q6H PRN PRN Reason: PAIN LEVEL 4 - 6 Last Admin: 12/07/18 07:09 Dose: 50 mg - Objective Vital Signs: Vital Signs Temperature 98.3 F 12/07/18 17:25 Pulse Rate 91 H 12/07/18 17:25 Respiratory Rate 18 12/07/18 17:25 Blood Pressure 136/77 12/07/18 17:25 O2 Sat by Pulse Oximetry (%) 97 12/07/18 10:00 Constitutional: Yes: No Distress, Calm Cardiovascular: Yes: WNL, Regular Rate and Rhythm Respiratory: Yes: Regular, CTA Bilaterally Gastrointestinal: Yes: Soft Extremities: Yes: WNL Edema: No Labs: CBC, BMP 12/07/18 06:00 12/07/18 06:00 INR, PTT INR 1.18 (0.83-1.09) H 12/04/18 18:20 Assessment/Plan Advanced metastatic pancreatic cancer, with multiple lines of prior therapy, now with progressive disease, presenting with new symptomatic large L pleural effusion, clinically improved after thoracocentesis. If stable over next few days then can be discharged, to follow up as out patient with Dr Ko, and to be re-evaluated whether still appropriate/eligible for planned Phase 1 trial. Will need close monitoring - for re-accumulation of fluid. May benefit from Pleurex catheter.
[2018-12-07] MEDS: LIDOCAINE PATCH REMOVAL MC SCH (22:19)
[2018-12-08] MEDS: HEPARIN NA (PORCINE) 5,000 UNITS/ML 1ML VIAL SQ SCH ×3 (06:09→22:13)
[2018-12-08] MEDS: INSULIN SLIDING SCALE (NOVOLOG) 1 VIAL SQ SCH ×4 (06:10→22:12)
[2018-12-08] MEDS ORDERED: PT OWN MED DRAWER 7, Y5N ONE ×5 (06:52→23:05)
[2018-12-08 08:01] LABS: BASO % 0.6 % (0-2.0); EOS % 3.6 % (0-4.5); HEMATOCRIT 30.1 % (32.4-45.2); HEMOGLOBIN 9.7 GM/dL (10.7-15.3); MCH 27.8 pg (25.7-33.7); MCHC 32.3 g/dl (32.0-36.0); MEAN CELL VOLUME 85.8 fl (80-96); MEAN PLT VOLUME 8.4 fl (7.5-11.1); MONO % 4.5 % (3.8-10.2); NEUT % 74.3 % (42.8-82.8); PLATELET COUNT 301 K/MM3 (134-434); RBC 3.51 M/mm3 (3.60-5.2); RDW 15.2 % (11.6-15.6); WHITE BLOOD COUNT 8.7 K/mm3 (4.0-10.0)
[2018-12-08 08:34] LABS: ALBUMIN 1.9 g/dl (3.4-5.0); ALK PHOS 113 U/L (45-117); ANION GAP 9 MMOL/L (8-16); BILIRUBIN,TOTAL 0.6 mg/dL (0.2-1); BLOOD UREA NITROGEN 11 mg/dL (7-18); CALCIUM 7.7 mg/dL (8.5-10.1); CHLORIDE 100 mmol/L (98-107); CO2 28 mmol/L (21-32); CREATININE 0.5 mg/dL (0.55-1.3); GLUCOSE,RANDOM 160 mg/dL (74-106); SGOT/AST 35 U/L (15-37); SGPT/ALT 30 U/L (13-61); SODIUM 136 mmol/L (136-145); TOT PROT 4.9 g/dl (6.4-8.2)
[2018-12-08] MEDS: LIPASE/PROTEASE/AMYLASE 6,000 UNIT CAPSULE PO SCH ×3 (08:39→17:20)
--- NOTE | 2018-12-08 09:31 | PN ---
Progress Note, Physician Chief Complaint: Pt seen ,and examined Lying in bed,feels comfortable,no sob,mild pain at pleur-X site Afebrile, WBC coming down S/p bronchoscopy pericardial window LT VATS,PLeur-x catheter placement, Catheter draining serosanginous fluid - Current Medication List Current Medications: Active Medications Acetaminophen (Tylenol -) 650 mg PO Q6H PRN PRN Reason: PAIN Last Admin: 12/06/18 20:49 Dose: 650 mg Amlodipine Besylate (Norvasc -) 5 mg PO DAILY [facility] Last Admin: 12/07/18 10:36 Dose: 5 mg Heparin Sodium (Porcine) (Heparin -) 5,000 unit SQ TID [facility] Last Admin: 12/08/18 06:09 Dose: 5,000 unit IV Flush (Drew-Cath Flush) 10 ml IVPUSH PRN PRN PRN Reason: when ivf not infusing Lactated Ringer's (Lactated Ringers Solution) 1,000 ml in 1,000 mls @ 75 mls/ hr IV ASDIR [facility] Last Admin: 12/07/18 22:05 Dose: 75 mls/hr Insulin Aspart (Novolog Vial Sliding Scale -) 1 vial SQ ACHS [facility]; Protocol Last Admin: 12/08/18 06:10 Dose: 2 units Lidocaine (Lidoderm Patch -) 1 patch TP DAILY [facility] Last Admin: 12/07/18 10:36 Dose: 1 patch Miscellaneous (Lidoderm Patch Removal) 1 each MC DAILY@2200 [facility] Last Admin: 12/07/18 22:19 Dose: 1 each Morphine Sulfate (Morphine Sulfate) 4 mg IVPUSH Q4H PRN PRN Reason: PAIN LEVEL 7 - 10 Last Admin: 12/07/18 12:06 Dose: 4 mg Pancrelipase (Creon Dr 6,000 Units Capsule) 4 cap PO TIDCM [facility] Last Admin: 12/08/18 08:39 Dose: 4 cap Polyethylene Glycol (Miralax (For Daily Use) -) 17 gm PO DAILY [facility] Last Admin: 12/07/18 10:37 Dose: 17 grams Ramipril (Altace -) 5 mg PO DAILY [facility] Last Admin: 12/07/18 10:37 Dose: 5 mg Tramadol HCl (Ultram -) 50 mg PO Q6H PRN PRN Reason: PAIN LEVEL 4 - 6 Last Admin: 12/07/18 07:09 Dose: 50 mg - Objective Vital Signs: Vital Signs Temperature 98.6 F 12/08/18 05:00 Pulse Rate 83 12/08/18 05:00 Respiratory Rate 20 12/08/18 05:00 Blood Pressure 122/78 12/08/18 05:00 O2 Sat by Pulse Oximetry (%) 97 12/07/18 22:00 Constitutional: Yes: No Distress Eyes: Yes: Conjunctiva Clear HENT: Yes: Atraumatic Neck: Yes: Supple, Trachea Midline Cardiovascular: Yes: Regular Rate and Rhythm Respiratory: Yes: Diminished, On Nasal O2, Other (Pleure-x catheter draining serosanguinous fluid) Gastrointestinal: Yes: Normal Bowel Sounds, Soft Musculoskeletal: Yes: WNL Extremities: Yes: WNL Edema: No Peripheral Pulses WNL: Yes Wound/Incision: Yes: Dressing Dry and Intact Neurological: Yes: WNL, Alert ...Motor Strength: WNL Psychiatric: Yes: WNL, Alert Labs: CBC, BMP 12/08/18 06:30 12/08/18 06:30 INR, PTT INR 1.18 (0.83-1.09) H 12/04/18 18:20 Assessment/Plan s/p bronchoscopy,pericardial window,lt pleure-x catheter placement Advanced metastatic pancreatic cancer,pleural effusion S/P thoracocentesis pericardial effusion HTN DM leucocytosis coming down PLAN Continue pain meds Will f/u oncology rec pul f/u,thoracic surgery f/u will monitor wbc, VNS consult
[2018-12-08] MEDS: morphine SULFATE 4 MG/ML VIAL IVPUSH PRN ×2 (09:41→16:10)
[2018-12-08] MEDS: amLODIPine BESYLATE 5 MG TABLET (FP) PO SCH (09:41)
[2018-12-08] MEDS: POLYETHYLENE GLYCOL 3350 119 GM BTL PO SCH (09:42)
[2018-12-08] MEDS: LIDOCAINE 5% TOPICAL PATCH TP SCH (09:42)
[2018-12-08] MEDS: RAMIPRIL 5 MG CAPSULE (FP) PO SCH (12:04)
--- NOTE | 2018-12-08 13:44 | PN ---
Progress Note, Physician History of Present Illness: pulmonary alert,oob-chair,-resp distress.o2 sat 97% - Current Medication List Current Medications: Active Medications Acetaminophen (Tylenol -) 650 mg PO Q6H PRN PRN Reason: PAIN Last Admin: 12/06/18 20:49 Dose: 650 mg Amlodipine Besylate (Norvasc -) 5 mg PO DAILY [facility] Last Admin: 12/08/18 09:41 Dose: 5 mg Heparin Sodium (Porcine) (Heparin -) 5,000 unit SQ TID [facility] Last Admin: 12/08/18 06:09 Dose: 5,000 unit IV Flush (Drew-Cath Flush) 10 ml IVPUSH PRN PRN PRN Reason: when ivf not infusing Lactated Ringer's (Lactated Ringers Solution) 1,000 ml in 1,000 mls @ 75 mls/ hr IV ASDIR [facility] Last Admin: 12/07/18 22:05 Dose: 75 mls/hr Insulin Aspart (Novolog Vial Sliding Scale -) 1 vial SQ ACHS [facility]; Protocol Last Admin: 12/08/18 12:03 Dose: 6 units Lidocaine (Lidoderm Patch -) 1 patch TP DAILY [facility] Last Admin: 12/08/18 09:42 Dose: 1 patch Miscellaneous (Lidoderm Patch Removal) 1 each MC DAILY@2200 [facility] Last Admin: 12/07/18 22:19 Dose: 1 each Morphine Sulfate (Morphine Sulfate) 4 mg IVPUSH Q4H PRN PRN Reason: PAIN LEVEL 7 - 10 Last Admin: 12/08/18 09:41 Dose: 4 mg Pancrelipase (Creon Dr 6,000 Units Capsule) 4 cap PO TIDCM [facility] Last Admin: 12/08/18 12:05 Dose: 4 cap Polyethylene Glycol (Miralax (For Daily Use) -) 17 gm PO DAILY [facility] Last Admin: 12/08/18 09:42 Dose: 17 grams Ramipril (Altace -) 5 mg PO DAILY [facility] Last Admin: 12/08/18 12:04 Dose: 5 mg - Objective Vital Signs: Vital Signs Temperature 97.8 F 12/08/18 13:06 Pulse Rate 95 H 12/08/18 13:06 Respiratory Rate 20 12/08/18 13:06 Blood Pressure 128/68 12/08/18 13:06 O2 Sat by Pulse Oximetry (%) 98 12/08/18 09:00 Constitutional: Yes: Well Nourished, Calm Eyes: Yes: WNL HENT: Yes: WNL Neck: Yes: WNL Cardiovascular: Yes: Regular Rate and Rhythm, S1, S2 Respiratory: Yes: Diminished (diminished bs on left) Gastrointestinal: Yes: Normal Bowel Sounds, Soft Extremities: Yes: WNL Edema: No Labs: CBC, BMP 12/08/18 06:30 12/08/18 06:30 INR, PTT INR 1.18 (0.83-1.09) H 12/04/18 18:20 Problem List - Problems (1) Pleural effusion Code(s): J90 - PLEURAL EFFUSION, NOT ELSEWHERE CLASSIFIED (2) Dyspnea Code(s): R06.00 - DYSPNEA, UNSPECIFIED Qualifiers: Dyspnea type: shortness of breath Qualified Code(s): R06.02 - Shortness of breath; R06.00 - Dyspnea, unspecified; R06.01 - Orthopnea (3) Pancreatic cancer metastasized to lung Code(s): C25.9 - MALIGNANT NEOPLASM OF PANCREAS, UNSPECIFIED; C78.00 - SECONDARY MALIGNANT NEOPLASM OF UNSPECIFIED LUNG (4) Diabetes mellitus Code(s): E11.9 - TYPE 2 DIABETES MELLITUS WITHOUT COMPLICATIONS (5) Hypertension Code(s): I10 - ESSENTIAL (PRIMARY) HYPERTENSION (6) Pericardial effusion Code(s): I31.3 - PERICARDIAL EFFUSION (NONINFLAMMATORY) Assessment/Plan ASSESSMENT AND PLAN: Metastatic Pancreatic Cancer Left Pleural Effusion Pericardial Effusion s/p L VATS/pericardial window/pleur-x placement HTN DM - pain control - incentive spirometry - PO as tolerated - monitor chest tube output - antibiotics DR HOPPER
[2018-12-08] MEDS: LACTATED RINGERS SOLUTION 1,000 ML/1,000 ML INFUS.BAG IV SCH (16:10)
--- NOTE | 2018-12-08 19:09 | PN ---
Progress Note, Physician Chief Complaint: pancreatic cancer History of Present Illness: Denies abdominal pain, SOB. No overnight events - Current Medication List Current Medications: Active Medications Acetaminophen (Tylenol -) 650 mg PO Q6H PRN PRN Reason: PAIN Last Admin: 12/06/18 20:49 Dose: 650 mg Amlodipine Besylate (Norvasc -) 5 mg PO DAILY [facility] Last Admin: 12/08/18 09:41 Dose: 5 mg Heparin Sodium (Porcine) (Heparin -) 5,000 unit SQ TID [facility] Last Admin: 12/08/18 16:10 Dose: 5,000 unit IV Flush (Drew-Cath Flush) 10 ml IVPUSH PRN PRN PRN Reason: when ivf not infusing Lactated Ringer's (Lactated Ringers Solution) 1,000 ml in 1,000 mls @ 75 mls/ hr IV ASDIR [facility] Last Admin: 12/08/18 16:10 Dose: 75 mls/hr Insulin Aspart (Novolog Vial Sliding Scale -) 1 vial SQ ACHS [facility]; Protocol Last Admin: 12/08/18 17:19 Dose: 4 units Lidocaine (Lidoderm Patch -) 1 patch TP DAILY [facility] Last Admin: 12/08/18 09:42 Dose: 1 patch Miscellaneous (Lidoderm Patch Removal) 1 each MC DAILY@2200 [facility] Last Admin: 12/07/18 22:19 Dose: 1 each Morphine Sulfate (Morphine Sulfate) 4 mg IVPUSH Q4H PRN PRN Reason: PAIN LEVEL 7 - 10 Last Admin: 12/08/18 16:10 Dose: 4 mg Pancrelipase (Creon Dr 6,000 Units Capsule) 4 cap PO TIDCM [facility] Last Admin: 12/08/18 17:20 Dose: 4 cap Polyethylene Glycol (Miralax (For Daily Use) -) 17 gm PO DAILY [facility] Last Admin: 12/08/18 09:42 Dose: 17 grams Ramipril (Altace -) 5 mg PO DAILY [facility] Last Admin: 12/08/18 12:04 Dose: 5 mg - Objective Vital Signs: Vital Signs Temperature 99.0 F 12/08/18 17:23 Pulse Rate 93 H 12/08/18 17:23 Respiratory Rate 18 12/08/18 17:23 Blood Pressure 115/81 12/08/18 17:23 O2 Sat by Pulse Oximetry (%) 98 12/08/18 10:00 Constitutional: Yes: No Distress, Calm Eyes: Yes: Conjunctiva Clear Cardiovascular: Yes: Regular Rate and Rhythm Respiratory: Yes: WNL, CTA Bilaterally Gastrointestinal: Yes: Normal Bowel Sounds, Soft Extremities: Yes: WNL Edema: No Labs: CBC, BMP 12/08/18 06:30 12/08/18 06:30 INR, PTT INR 1.18 (0.83-1.09) H 12/04/18 18:20 Assessment/Plan Advanced metastatic pancreatic cancer, with multiple lines of prior therapy, now with progressive disease, presenting with new symptomatic large L pleural effusion, clinically improved after thoracocentesis. If stable over next few days then can be discharged, to follow up as out patient with Dr Ko, and to be re-evaluated whether still appropriate/eligible for planned Phase 1 trial. Will need close monitoring - for re-accumulation of fluid. May benefit from Pleurex catheter.
[2018-12-08] MEDS: LIDOCAINE PATCH REMOVAL MC SCH (22:13)
[2018-12-09] MEDS: LACTATED RINGERS SOLUTION 1,000 ML/1,000 ML INFUS.BAG IV SCH (02:37)
[2018-12-09] MEDS: HEPARIN NA (PORCINE) 5,000 UNITS/ML 1ML VIAL SQ SCH ×3 (06:15→21:55)
[2018-12-09] MEDS: INSULIN SLIDING SCALE (NOVOLOG) 1 VIAL SQ SCH ×4 (06:16→22:00)
[2018-12-09 07:07] LABS: BASO % 0.5 % (0-2.0); EOS % 4.5 % (0-4.5); HEMATOCRIT 30.1 % (32.4-45.2); HEMOGLOBIN 9.6 GM/dL (10.7-15.3); LYMPH % 18.9 % (8-40); MCH 27.4 pg (25.7-33.7); MCHC 31.7 g/dl (32.0-36.0); MEAN CELL VOLUME 86.5 fl (80-96); MEAN PLT VOLUME 8.1 fl (7.5-11.1); MONO % 6.3 % (3.8-10.2); NEUT % 69.8 % (42.8-82.8); PLATELET COUNT 330 K/MM3 (134-434); RBC 3.49 M/mm3 (3.60-5.2); RDW 14.8 % (11.6-15.6); WHITE BLOOD COUNT 7.7 K/mm3 (4.0-10.0)
[2018-12-09 08:33] LABS: ALBUMIN 1.8 g/dl (3.4-5.0); ALK PHOS 114 U/L (45-117); ANION GAP 7 MMOL/L (8-16); BILIRUBIN,TOTAL 0.6 mg/dL (0.2-1); BLOOD UREA NITROGEN 11 mg/dL (7-18); CALCIUM 7.7 mg/dL (8.5-10.1); CHLORIDE 102 mmol/L (98-107); CO2 29 mmol/L (21-32); CREATININE 0.5 mg/dL (0.55-1.3); GLUCOSE,RANDOM 181 mg/dL (74-106); POTASSIUM 3.9 mmol/L (3.5-5.1); SGOT/AST 29 U/L (15-37); SGPT/ALT 28 U/L (13-61); SODIUM 138 mmol/L (136-145); TOT PROT 4.8 g/dl (6.4-8.2)
[2018-12-09] MEDS: LIPASE/PROTEASE/AMYLASE 6,000 UNIT CAPSULE PO SCH ×3 (08:58→17:12)
--- NOTE | 2018-12-09 09:51 | PN ---
Progress Note, Physician Chief Complaint: Pt seen ,and examined Lying in bed,feels comfortable,no sob,mild pain at pleur-X site Afebrile, WBC coming down S/p bronchoscopy pericardial window LT VATS,PLeur-x catheter placement, Catheter draining serosanginous fluid Rpt chest x ray stable - Current Medication List Current Medications: Active Medications Acetaminophen (Tylenol -) 650 mg PO Q6H PRN PRN Reason: PAIN Last Admin: 12/06/18 20:49 Dose: 650 mg Amlodipine Besylate (Norvasc -) 5 mg PO DAILY [facility] Last Admin: 12/08/18 09:41 Dose: 5 mg Heparin Sodium (Porcine) (Heparin -) 5,000 unit SQ TID [facility] Last Admin: 12/09/18 06:15 Dose: 5,000 unit IV Flush (Drew-Cath Flush) 10 ml IVPUSH PRN PRN PRN Reason: when ivf not infusing Lactated Ringer's (Lactated Ringers Solution) 1,000 ml in 1,000 mls @ 75 mls/ hr IV ASDIR [facility] Last Admin: 12/09/18 02:37 Dose: 75 mls/hr Insulin Aspart (Novolog Vial Sliding Scale -) 1 vial SQ ACHS [facility]; Protocol Last Admin: 12/09/18 06:16 Dose: 2 units Lidocaine (Lidoderm Patch -) 1 patch TP DAILY [facility] Last Admin: 12/08/18 09:42 Dose: 1 patch Miscellaneous (Lidoderm Patch Removal) 1 each MC DAILY@2200 [facility] Last Admin: 12/08/18 22:13 Dose: 1 each Morphine Sulfate (Morphine Sulfate) 4 mg IVPUSH Q4H PRN PRN Reason: PAIN LEVEL 7 - 10 Last Admin: 12/08/18 16:10 Dose: 4 mg Pancrelipase (Creon Dr 6,000 Units Capsule) 4 cap PO TIDCM [facility] Last Admin: 12/09/18 08:58 Dose: 4 cap Polyethylene Glycol (Miralax (For Daily Use) -) 17 gm PO DAILY [facility] Last Admin: 12/08/18 09:42 Dose: 17 grams Ramipril (Altace -) 5 mg PO DAILY [facility] Last Admin: 12/08/18 12:04 Dose: 5 mg - Objective Vital Signs: Vital Signs Temperature 97.5 F L 12/09/18 06:11 Pulse Rate 79 12/09/18 06:11 Respiratory Rate 20 12/09/18 06:11 Blood Pressure 121/73 12/09/18 06:11 O2 Sat by Pulse Oximetry (%) 96 12/08/18 20:27 Constitutional: Yes: No Distress Eyes: Yes: Conjunctiva Clear HENT: Yes: Atraumatic Neck: Yes: Supple, Trachea Midline Cardiovascular: Yes: Regular Rate and Rhythm Respiratory: Yes: Regular, Diminished, Dullness, On Nasal O2 Gastrointestinal: Yes: Normal Bowel Sounds, Soft Musculoskeletal: Yes: WNL Extremities: Yes: WNL Edema: No Peripheral Pulses WNL: Yes Wound/Incision: Yes: Dressing Dry and Intact Neurological: Yes: WNL, Alert ...Motor Strength: WNL Psychiatric: Yes: WNL, Alert Labs: CBC, BMP 12/09/18 06:30 12/09/18 06:30 INR, PTT INR 1.18 (0.83-1.09) H 12/04/18 18:20 Assessment/Plan s/p bronchoscopy,pericardial window,lt pleure-x catheter placement Advanced metastatic pancreatic cancer,pleural effusion S/P thoracocentesis pericardial effusion HTN DM leucocytosis coming down Chest x Ray stable PLAN Continue pain meds Will f/u oncology rec pul f/u,thoracic surgery f/u will monitor wbc, VNS consult
[2018-12-09] MEDS: amLODIPine BESYLATE 5 MG TABLET (FP) PO SCH (10:31)
[2018-12-09] MEDS: LIDOCAINE 5% TOPICAL PATCH TP SCH (10:31)
[2018-12-09] MEDS: POLYETHYLENE GLYCOL 3350 119 GM BTL PO SCH (10:32)
[2018-12-09] MEDS: RAMIPRIL 5 MG CAPSULE (FP) PO SCH (10:32)
--- NOTE | 2018-12-09 11:34 | PN ---
Progress Note (short form) - Note Progress Note: 63yo F s/p pericardial window and pleurex catheter placement. Pt seen at bedside. Pt states that she is breathing well denies chest pain. Pt currently on nasal cannula. Last Vital Signs Temp Pulse Resp BP Pulse Ox 98.2 F 81 20 133/78 100 12/09/18 10:00 12/09/18 10:00 12/09/18 10:00 12/09/18 10:00 12/09/18 09:00 CBC, BMP 12/09/18 06:30 12/09/18 06:30 PE: Gen: A&O x3 Chest: Lt sided pleurex cathter in place on gravity drainage, serous drainage noted. incisions are clean with no erythema. Resp: breathing comfortably Problem List - Problems (1) Pleural effusion Assessment/Plan: Plan -Cxr is unchanged from previous, pneumothorax is normal after pericardial window and pleural effusion. Pt appears to be doing well clinically. Would consider capping drain and discharge home with home pleurex drainage. - Pt cleared from CT surgery for discharge, can continue drainage til pt is ready to discharge from medicine standpoint. - follow up with Dr. Molina as an outpatient in 1-2 weeks Case discussed with Dr. Molina who agrees with plan. Code(s): J90 - PLEURAL EFFUSION, NOT ELSEWHERE CLASSIFIED
--- NOTE | 2018-12-09 12:04 | PN ---
Progress Note (short form) - Note Progress Note: PULMONARY Denies shortness of breath or chest pain. No fevers or chills. Chest tube drained 500mL past 24 hrs. Vital Signs Period Temp Pulse Resp BP Sys/Venegas Pulse Ox Last 24 Hr 97.5 F-99.3 F 79-100 18-20 115-133/63-81 96-100 Gen: NAD at rest Heart: RRR Lung: decreased breath sounds left base Abd: soft, nontender Ext: no edema CBC, BMP 12/09/18 06:30 12/09/18 06:30 Active Medications Acetaminophen (Tylenol -) 650 mg PO Q6H PRN PRN Reason: PAIN Last Admin: 12/06/18 20:49 Dose: 650 mg Amlodipine Besylate (Norvasc -) 5 mg PO DAILY [facility] Last Admin: 12/09/18 10:31 Dose: 5 mg Heparin Sodium (Porcine) (Heparin -) 5,000 unit SQ TID [facility] Last Admin: 12/09/18 06:15 Dose: 5,000 unit IV Flush (Drew-Cath Flush) 10 ml IVPUSH PRN PRN PRN Reason: when ivf not infusing Lactated Ringer's (Lactated Ringers Solution) 1,000 ml in 1,000 mls @ 75 mls/ hr IV ASDIR [facility] Last Admin: 12/09/18 02:37 Dose: 75 mls/hr Insulin Aspart (Novolog Vial Sliding Scale -) 1 vial SQ ACHS [facility]; Protocol Last Admin: 12/09/18 06:16 Dose: 2 units Lidocaine (Lidoderm Patch -) 1 patch TP DAILY [facility] Last Admin: 12/09/18 10:31 Dose: 1 patch Miscellaneous (Lidoderm Patch Removal) 1 each MC DAILY@2200 [facility] Last Admin: 12/08/18 22:13 Dose: 1 each Morphine Sulfate (Morphine Sulfate) 4 mg IVPUSH Q4H PRN PRN Reason: PAIN LEVEL 7 - 10 Last Admin: 12/08/18 16:10 Dose: 4 mg Pancrelipase (Creon Dr 6,000 Units Capsule) 4 cap PO TIDCM [facility] Last Admin: 12/09/18 08:58 Dose: 4 cap Polyethylene Glycol (Miralax (For Daily Use) -) 17 gm PO DAILY [facility] Last Admin: 12/09/18 10:32 Dose: 17 grams Ramipril (Altace -) 5 mg PO DAILY [facility] Last Admin: 12/09/18 10:32 Dose: 5 mg A/P Metastatic Pancreatic Cancer Left Pleural Effusion Pericardial Effusion s/p L VATS/pericardial window/pleur-x placement HTN DM - monitor drain output - DVT prophylaxis - d/c planning with VNS
[2018-12-09] MEDS: morphine SULFATE 4 MG/ML VIAL IVPUSH PRN ×2 (14:30→23:36)
--- NOTE | 2018-12-09 16:16 | PATH ---
Cytology Non-Gynecological Report Patient Name: SHARATH CORMIER Med. Rec. #: [id number] /Age/Gender: 1955 (Age: 63) / F Account: [id number] Location: [facility] MED/SURG Taken: 11/29/2018 Received: 12/02/2018 Reported: 12/09/2018 Physicians: [facility]IAN EMERGENCY DEPT Specimen(s) Received A: PLEURAL FLUID B: PLEURAL FLUID Clinical History Pleural effusion Final Diagnosis A & B. PLEURAL FLUID, THORACENTESIS: SATISFACTORY FOR EVALUATION. SUSPICIOUS FOR MALIGNANCY. SUSPECT CARCINOMA. ATYPICAL CELLS DISPERSED FEW SINGLE CELLS AND RARE CLUSTERS WITH HYPERCHROMASIA, IRREGULAR NUCLEAR CONTOURS AND INCREASED NUCLEUS TO CYTOPLASMIC RATIO IN A BACKGROUND OF MESOTHELIAL CELLS, MACROPHAGES, AND LYMPHOCYTES PRESENT. Comment: Immunohistochemical stains performed and interpreted at [facility] show rare atypical cells are positive for BerEp4/RAGHU with high background staining; while negative for CK20. CK7 is positive in rare atypical cells and mesothelial cells. Additional immunohistochemical stains performed at [place], [place] ([id number]) and interpreted at [facility] show the atypical cell clusters are positive for PRASHANT, and have focal weak staining with MOC31. Mesothelial cells are highlighted by calretinin and D2-40 in a background of many CD68+ macrophages. Overall findings are suspicious for malignancy, suspect carcinoma, with scant evidence. Suggest clinical/radiologic correlation. History of pancreatic cancer s/p treatment with multiple lung lesions noted. Findings discussed with. Dr. Garaz. Electronically Signed Sharath Fofana M.D. Gross Description A. Approximately 1000 cc of yellow fluid received fresh. One cytofunnel prepared and Pap stained. One cellblock prepared. B. Approximately 50 cc of yellow fluid received fixed in 50% alcohol. One cytofunnel prepared and Pap stained. One cellblock prepared.
[2018-12-09] MEDS ORDERED: PT OWN MED DRAWER 7, Y5N ONE (18:45)
[2018-12-09] MEDS: LIDOCAINE PATCH REMOVAL MC SCH (21:55)
[2018-12-10] MEDS ORDERED: PT OWN MED DRAWER 7, Y5N ONE ×2 (00:06→06:21)
[2018-12-10] MEDS: HEPARIN NA (PORCINE) 5,000 UNITS/ML 1ML VIAL SQ SCH (06:09)
[2018-12-10] MEDS: INSULIN SLIDING SCALE (NOVOLOG) 1 VIAL SQ SCH (06:15)
--- NOTE | 2018-12-10 07:42 | PN ---
Progress Note, Physician Chief Complaint: Pt seen ,and examined Pericardial effusion,pleural effusion Lying in bed,feels comfortable,no sob,mild pain at pleur-X site Afebrile, WBC coming down S/p bronchoscopy pericardial window LT VATS,PLeur-x catheter placement, Catheter draining serosanginous fluid Rpt chest x ray stable Pleural fluid pathology suspicious for malignancy d/c home - Current Medication List Current Medications: Active Medications Acetaminophen (Tylenol -) 650 mg PO Q6H PRN PRN Reason: PAIN Last Admin: 12/06/18 20:49 Dose: 650 mg Amlodipine Besylate (Norvasc -) 5 mg PO DAILY [facility] Last Admin: 12/09/18 10:31 Dose: 5 mg Heparin Sodium (Porcine) (Heparin -) 5,000 unit SQ TID [facility] Last Admin: 12/10/18 06:09 Dose: 5,000 unit IV Flush (Drew-Cath Flush) 10 ml IVPUSH PRN PRN PRN Reason: when ivf not infusing Insulin Aspart (Novolog Vial Sliding Scale -) 1 vial SQ [facility]; Protocol Last Admin: 12/10/18 06:15 Dose: Not Given Lidocaine (Lidoderm Patch -) 1 patch TP DAILY [facility] Last Admin: 12/09/18 10:31 Dose: 1 patch Miscellaneous (Lidoderm Patch Removal) 1 each MC DAILY@2200 [facility] Last Admin: 12/09/18 21:55 Dose: Not Given Morphine Sulfate (Morphine Sulfate) 4 mg IVPUSH Q4H PRN PRN Reason: PAIN LEVEL 7 - 10 Last Admin: 12/09/18 23:36 Dose: 4 mg Pancrelipase (Creon Dr 6,000 Units Capsule) 4 cap PO TIDCM [facility] Last Admin: 12/09/18 17:12 Dose: 4 cap Polyethylene Glycol (Miralax (For Daily Use) -) 17 gm PO DAILY [facility] Last Admin: 12/09/18 10:32 Dose: 17 grams Ramipril (Altace -) 5 mg PO DAILY [facility] Last Admin: 12/09/18 10:32 Dose: 5 mg - Objective Vital Signs: Vital Signs Temperature 97.9 F 12/10/18 06:00 Pulse Rate 75 12/10/18 06:00 Respiratory Rate 20 12/10/18 06:00 Blood Pressure 134/74 12/10/18 06:00 O2 Sat by Pulse Oximetry (%) 96 12/09/18 22:00 Constitutional: Yes: No Distress Eyes: Yes: Conjunctiva Clear Neck: Yes: Supple Cardiovascular: Yes: Regular Rate and Rhythm Respiratory: Yes: Diminished, Dullness, On Nasal O2 Gastrointestinal: Yes: Normal Bowel Sounds Musculoskeletal: Yes: WNL Extremities: Yes: WNL Edema: No Peripheral Pulses WNL: Yes Wound/Incision: Yes: Dressing Dry and Intact Neurological: Yes: WNL, Alert, Oriented ...Motor Strength: WNL Psychiatric: Yes: WNL Labs: CBC, BMP 12/09/18 06:30 12/09/18 06:30 INR, PTT INR 1.18 (0.83-1.09) H 12/04/18 18:20 Assessment/Plan s/p bronchoscopy,pericardial window,lt pleure-x catheter placement Advanced metastatic pancreatic cancer,pleural effusion S/P thoracocentesis pericardial effusion HTN DM Chest x Ray stable PLAN d/c home Continue pain meds oncology f/u pul f/u,thoracic surgery f/u after discharghe
[2018-12-10 09:30] VITALS: BP 135/73; PULSE 82; TEMP 97.8
[2018-12-10] MEDS: RAMIPRIL 5 MG CAPSULE (FP) PO SCH (09:32)
[2018-12-10] MEDS: LIPASE/PROTEASE/AMYLASE 6,000 UNIT CAPSULE PO SCH (09:32)
[2018-12-10] MEDS: POLYETHYLENE GLYCOL 3350 119 GM BTL PO SCH (09:33)
[2018-12-10] MEDS: amLODIPine BESYLATE 5 MG TABLET (FP) PO SCH (09:33)
[2018-12-10] MEDS: LIDOCAINE 5% TOPICAL PATCH TP SCH (09:33)
[2018-12-10] MEDS: morphine SULFATE 4 MG/ML VIAL IVPUSH PRN (09:34)
--- NOTE | 2018-12-10 11:54 | PN ---
Progress Note (short form) - Note Progress Note: PULMONARY Denies shortness of breath or chest pain. Vital Signs Period Temp Pulse Resp BP Sys/Venegas Pulse Ox Last 24 Hr 97.8 F-98.8 F 75-104 20-20 123-135/70-77 96-98 Gen: NAD at rest Heart: RRR Lung: decreased breath sounds left base Abd: soft, nontender Ext: no edema CBC, BMP 12/09/18 06:30 12/09/18 06:30 Active Medications Acetaminophen (Tylenol -) 650 mg PO Q6H PRN PRN Reason: PAIN Last Admin: 12/06/18 20:49 Dose: 650 mg Amlodipine Besylate (Norvasc -) 5 mg PO DAILY [facility] Last Admin: 12/10/18 09:33 Dose: 5 mg IV Flush (Drew-Cath Flush) 10 ml IVPUSH PRN PRN PRN Reason: when ivf not infusing Lidocaine (Lidoderm Patch -) 1 patch TP DAILY [facility] Last Admin: 12/10/18 09:33 Dose: 1 patch Miscellaneous (Lidoderm Patch Removal) 1 each MC DAILY@2200 [facility] Last Admin: 12/09/18 21:55 Dose: Not Given Pancrelipase (Creon Dr 6,000 Units Capsule) 4 cap PO TIDCM [facility] Last Admin: 12/10/18 09:32 Dose: 4 cap Ramipril (Altace -) 5 mg PO DAILY [facility] Last Admin: 12/10/18 09:32 Dose: 5 mg A/P Metastatic Pancreatic Cancer Left Pleural Effusion Pericardial Effusion s/p L VATS/pericardial window/pleur-x placement HTN DM - monitor pleur-x output - DVT prophylaxis - d/c planning with VNS
--- NOTE | 2018-12-10 12:29 | PATH ---
Surgical Pathology Report Patient Name: SHARATH CORMIER Med. Rec. #: [id number] /Age/Gender: 1955 (Age: 63) / F Account: [id number] Location: [facility] MED[facility]URG Taken: 12/05/2018 Received: 12/05/2018 Reported: 12/10/2018 Physicians: Bertin Chong M.D. Specimen(s) Received PERICARDIUM BIOPSY Clinical History Metastatic pleural, pericardium effusion Final Diagnosis PERICARDIUM, BIOPSY: PERICARDIUM TISSUE WITH MILD CHRONIC INFLAMMATION, VASCULAR CONGESTION WITH FOCAL HEMORRHAGE, AND REACTIVE MESOTHELIAL HYPERPLASIA. NO HISTOLOGIC EVIDENCE OF MALIGNANCY. COMMENT: Immunohistochemical stained D2-40 and Calretinin highlight the reactive mesothelial cells. PRASHANT utilized and is non-contributory. Immunohistochemistry stains D2-40, Calretinin, and PRASHANT performed at [place], [place] ([id number]) interpreted at [facility]. Positive and negative controls (internal if applicable) show appropriate results. Electronically Signed Jnoathan Gerber M.D. Gross Description Received in formalin labeled "pericardium," is a 2.5 x 0.9 x 0.1 cm hernandez-pink portion of membranous tissue, consistent with pericardium. The specimen is trisected and entirely submitted in one cassette. /12/05/201812/05/2018
--- NOTE | 2018-12-12 12:17 | DS ---
DATE OF ADMISSION: 11/29/2018 DATE OF DISCHARGE: 12/10/2018 HISTORY OF PRESENT ILLNESS: Patient is a 63-year-old female with a past medical history of hypertension, diabetes, pancreatic cancer initially diagnosed in 2016, status post initial course of chemotherapy, radiation and surgery, followed by ongoing chemotherapy for metastatic lung lesions, admitted with complaints of shortness of breath, back pain, and progressive dyspnea. PAST MEDICAL HISTORY: Significant for diabetes, hypertension, hypercholesterolemia. ALLERGIES: No known drug allergies. MEDICATIONS: Ramipril 5 mg daily, amlodipine 5 mg daily, Creon, Claritin, and metformin. HOSPITAL COURSE: In the emergency room, patients temperature was 98.1, pulse 97, respirations 16, blood pressure 157/97, saturations 95%. Patient had an EKG done that showed sinus rhythm 84 per minute. No acute ischemic changes. Labs were done with hemoglobin 10.2, hematocrit 29.2, WBC 8.5, platelets 282. Comprehensive panel showed sodium 138, potassium 4, chloride 106, bicarbonate 23, BUN 14, creatinine 0.7, sugar 187, AST 12, ALT 16, alkaline phosphatase 148. Troponin negative. Magnesium normal. CT chest was done in the emergency room, and that showed large left pleural effusion with extensive atelectasis of left lung, smaller right pleural effusion, diffuse pulmonary masses consistent with extensive metastatic disease, mediastinal mass, large pericardial effusion, diffuse hepatic metastasis. Chest x-ray done showed large pleural effusion. Ultrasound guided thoracentesis with 1000 mL of fluid removed. After the thoracentesis, x-ray of chest done with no pneumothorax. So, patient was admitted to the floor with admitting diagnosis of metastatic pancreatic cancer with large pericardial and pleural effusion, shortness of breath, and back pain. Patient was followed by the Oncology, Cardiology, Pulmonology, and thoracic surgeon. Echo done shows left ventricle normal sized, LVH, ejection fraction 60% to 65%, left atrial size normal, right atrial size normal, mild mitral calcification, mild tricuspid regurgitation, moderate pericardial effusion, left pleural effusion. Patient complained of headaches, so head CT done. No gross mass lesion in the brain. Patient was treated with IV antibiotics. Patient had flexible bronchoscopy, left video-assisted thoracoscopy, pericardial window, PleurX placement with catheter draining serosanguinous fluid. Histopathology of the pericardial biopsy showed chronic inflammation, vascular congestion with focal hemorrhage. No evidence of malignancy. of chest x-ray done shows mild left pneumothorax. Repeated chest x-ray done, it was stable. Surgical pathology for the pleural fluid suspicious for malignancy, suspected carcinoma. Patient was stable after the pericardial window and PleurX catheter placement. Patient was given IV antibiotics and other symptomatic measures, pain medication. Patient discharged home in stable condition after arranging with the visiting nurse service. It was recommended she follow with the Oncology at [facility], pulmonary physician, and primary. Patient was stable throughout the hospitalization, discharged home in stable condition on home medications. EDDIE GRAYSON M.D. [id number]
== END 2018-12-10 12:41 | disposition home or self-care (01) | DRG 136 ==
LOC: JER 08:58 → JERBED 11-29 03:47 → J4W 11-29 17:26 → J7W 12-02 11:56 → JICU 12-05 11:01 → J7W 12-06 15:04
PROVIDERS: ADMIT Internal Medicine; ATTEND Internal Medicine
PROC: 0W9B3ZX Drainage of Left Pleural Cavity, Percutaneous Approach, Diagnostic (ICD-10-PCS; principal; 2018-11-29)
PROC: 0B9P4ZX Drainage of Left Pleura, Percutaneous Endoscopic Approach, Diagnostic (ICD-10-PCS; 2018-11-29)
PROC: 0W9B40Z Drainage of Left Pleural Cavity with Drainage Device, Percutaneous Endoscopic Approach (ICD-10-PCS; 2018-11-29)
PROC: 0BJ08ZZ Inspection of Tracheobronchial Tree, Via Natural or Artificial Opening Endoscopic (ICD-10-PCS; 2018-11-29)
PROC: 0W9D40Z Drainage of Pericardial Cavity with Drainage Device, Percutaneous Endoscopic Approach (ICD-10-PCS; 2018-11-29)
DX: C78.00 Secondary malignant neoplasm of unspecified lung (principal); J90 Pleural effusion, not elsewhere classified; C25.7 Malignant neoplasm of other parts of pancreas; C78.7 Secondary malignant neoplasm of liver and intrahepatic bile duct; E11.9 Type 2 diabetes mellitus without complications; I31.3 Pericardial effusion (noninflammatory); R06.00 Dyspnea, unspecified; R06.01 Orthopnea; R51 Headache; D72.828 Other elevated white blood cell count; I11.9 Hypertensive heart disease without heart failure; D64.9 Anemia, unspecified; J91.0 Malignant pleural effusion; G89.18 Other acute postprocedural pain; R64 Cachexia; Z68.21 Body mass index [BMI] 21.0-21.9, adult; I07.1 Rheumatic tricuspid insufficiency; D72.829 Elevated white blood cell count, unspecified
CPT/HCPCS: 36415; 70450-TC; 71045-TC-FY; 71260-TC; 76942; 80053; 82042; 82150; 82550; 82945; 82962; 83615; 83735; 83986; 84100; 84157; 84443; 84478; 84484; 85025; 85027; 85610; 86850; 86900; 86901; 86922; 87070; 87075; 87102; 87116; 87205; 87206; 87210; 88108; 88305-TC; 88341-TC; 93005; 93010; 93306-TC; 94761; 97116-GP; 99283-25; J0131; J1644

== ENCOUNTER 2019-01-13 19:24 | Inpatient (IN) | payer OTHER ==
--- NOTE | 2019-01-13 19:37 | PDOC ---
History of Present Illness - General Chief Complaint: Shortness of Breath Stated Complaint: DIFFICULTY BREATHING Time Seen by Provider: 01/13/19 19:36 History Source: Patient, Family Exam Limitations: Language Barrier - History of Present Illness Initial Comments: 01/13/19 19:55 HPI/ROS performed with phone certified caregiver: [id number] 63 year old female with PMH pancreatic CA with lung mets, DM, HTN presented to ED for SOB starting today. She stated her SOB is associated with left sided chest wall pain, cough, LLE swelling (x2.5 weeks). Pt is currently not on chemo secondary to being sick recently, plan for restarting chemo next month. Past History - Past Medical History Allergies/Adverse Reactions: Allergies Allergy/AdvReac Type Severity Reaction Status Date / Time No Known Allergies Allergy Verified 01/13/19 19:31 Home Medications: Ambulatory Orders Ramipril [Altace] 5 mg PO DAILY 05/16/16 Amlodipine Besylate [Norvasc -] 5 mg PO DAILY 11/28/18 Lipase/Protease/Amylase [Creon Dr 24,000 Units Capsule] 1 each PO TID 11/28/18 Ranitidine [Zantac -] 150 mg PO DAILY 11/28/18 metFORMIN HCL [Metformin HCl] 500 mg PO BID 11/28/18 Tramadol HCl 50 mg PO BID #30 tablet MDD 2 12/10/18 Asthma: No Cancer: Yes (PANCREATIC) Cardiac Disorders: No CVA: No COPD: No CHF: No Diabetes: Yes HTN: Yes Hypercholesterolemia: No Seizures: No - Surgical History Cholecystectomy: Yes - Immunization History Immunization Up to Date: Yes - Suicide/Smoking/Psychosocial Hx Smoking History: Never smoked Have you smoked in the past 12 months: No Hx Alcohol Use: No Drug/Substance Use Hx: No Substance Use Type: None Review of Systems - Review of Systems Able to Perform ROS?: Yes Comments:: 01/13/19 19:57 General: denied fever, chills, night sweats, generalized weakness. HEENT: denied sore throat, rhinorrhea, ear pain. Heart: admitted to chest pain, lower extremity swelling. denied palpitations, syncope, diaphoresis. Respiratory: admitted shortness of breath, cough. denied sputum production, hemoptysis. Abdomen: denied abdominal pain, nausea, vomiting, diarrhea, constipation, blood in stool. : denied dysuria, increased urinary frequency, hematuria, urinary incontinence , flank pain. Back: denied back pain. Musculoskeletal: denied joint pain, muscle pain, joint swelling. Neurological: denied headache, dizziness, numbness, tingling, weakness. Skin: denied rash, laceration, abrasion. *Physical Exam - Vital Signs Last Vital Signs Temp Pulse Resp BP Pulse Ox 98.0 F 106 H 20 162/95 97 01/13/19 19:26 01/13/19 19:26 01/13/19 19:26 01/13/19 19:26 01/13/19 19:26 - Physical Exam Comments: 01/13/19 19:58 Constitutional: frail. HEENT: head is normocephalic, atraumatic. EOMI. PERRLA. Neck: supple. Full ROM. Heart: tachycardic. regular rhythm. no murmurs, rubs or gallops. Chest: port to right chest wall. Lungs: decreased breath sounds to left base. crackles to left base. right lung dumont clear to auscultation. Abdomen: dressing over pleural drain. soft, nontender. normal bowel sounds. no rebound, guarding, masses. Extremities: nonpitting LLE edema. Peripheral pulses intact. Neurological: CN 2-12 grossly intact. Moves all four extremities. Psych: awake, alert, oriented x3. Follows commands. Answers questions appropriately. Moderate Sedation - Procedure Monitoring Vital Signs: Procedure Monitoring Vital Signs Temperature 98.0 F 01/13/19 19:26 Pulse Rate 106 H 01/13/19 19:26 Respiratory Rate 20 01/13/19 19:26 Blood Pressure 162/95 01/13/19 19:26 O2 Sat by Pulse Oximetry (%) 97 01/13/19 19:26 Procedures - Bedside Ultrasound Remarks: 01/13/19 22:55 Bedside ultrasound was used to place 20G IV in the left medial upper arm. - Vein was identified by compressibility on US - Needle was inserted under ultrasound guidance - Flashback was observed and the catheter fed without difficulty r refinery technician called and reported line did not flush. He used a test of 20 cc of normal saline and 20 cc of IV contrast, which infiltrated. Left UE examination: 2+ radial pulse, no warmth to left upper extremity, no swelling, no ecchymoses or discoloration. Another Bedside ultrasound was used to place 20G IV in the left lateral upper arm. - Vein was identified by compressibility on US - Needle was inserted under ultrasound guidance - Flashback was observed and the catheter fed without difficulty. ED Treatment Course - LABORATORY CBC & Chemistry Diagram: 01/16/19 06:00 01/15/19 06:17 Medical Decision Making - Medical Decision Making 01/13/19 19:59 63 year old female with above PMH presented to ED for SOB associated with left sided chest wall pain, LLE swelling and cough. Initial Vital Signs Temp Pulse Resp BP Pulse Ox 98.0 F 106 H 20 162/95 97 01/13/19 19:26 01/13/19 19:26 01/13/19 19:26 01/13/19 19:26 01/13/19 19:26 Afebrile. Tachycardic. No tachypnea. Mild hypertension. No hypoxia on room air. o Labs ordered: CBC, CMP, troponin, coags, T/S, VBG c Imaging ordered: CXR, CTA, LLE duplex US g Medications ordered: none EKG performed at 2018: rate 103, regular rhythm, normal axis, normal intervals, flipped T in V1, V2, no other ST changes. 01/13/19 20:37 CBC WBC 9.2 K/mm3 (4.0-10.0) 01/13/19 20:12 RBC 3.85 M/mm3 (3.60-5.2) 01/13/19 20:12 Hgb 11.5 GM/dL (10.7-15.3) 01/13/19 20:12 Hct 33.2 % (32.4-45.2) 01/13/19 20:12 MCV 86.3 fl (80-96) 01/13/19 20:12 MCH 29.9 pg (25.7-33.7) 01/13/19 20:12 MCHC 34.7 g/dl (32.0-36.0) 01/13/19 20:12 RDW 17.4 % (11.6-15.6) H 01/13/19 20:12 Plt Count 243 K/MM3 (134-434) D 01/13/19 20:12 MPV 8.1 fl (7.5-11.1) 01/13/19 20:12 Absolute Neuts (auto) 6.5 K/mm3 (1.5-8.0) 01/13/19 20:12 Neutrophils % 70.1 % (42.8-82.8) 01/13/19 20:12 Lymphocytes % 20.9 % (8-40) 01/13/19 20:12 Monocytes % 5.9 % (3.8-10.2) 01/13/19 20:12 Eosinophils % 2.0 % (0-4.5) 01/13/19 20:12 Basophils % 1.1 % (0-2.0) 01/13/19 20:12 Nucleated RBC % 0 % (0-0) 01/13/19 20:12 No leukocytosis. No anemia. 01/13/19 21:32 CMP Sodium 133 mmol/L (136-145) L 01/13/19 20:12 Potassium 5.0 mmol/L (3.5-5.1) 01/13/19 20:12 Chloride 101 mmol/L (98-107) 01/13/19 20:12 Carbon Dioxide 21 mmol/L (21-32) 01/13/19 20:12 Anion Gap 12 MMOL/L (8-16) 01/13/19 20:12 BUN 12 mg/dL (7-18) 01/13/19 20:12 Creatinine 0.6 mg/dL (0.55-1.3) 01/13/19 20:12 Creat Clearance w eGFR > 60 (>60) 01/13/19 20:12 Random Glucose y 232 mg/dL (74-106) H 01/13/19 20:12 Calcium 8.6 mg/dL (8.5-10.1) 01/13/19 20:12 Total Bilirubin 0.6 mg/dL (0.2-1) 01/13/19 20:12 AST 26 U/L (15-37) 01/13/19 20:12 ALT 15 U/L (13-61) 01/13/19 20:12 Alkaline Phosphatase y 274 U/L (45-117) H 01/13/19 20:12 Troponin I < 0.02 ng/ml (0.00-0.05) 01/13/19 20:12 Total Protein 7.1 g/dl (6.4-8.2) 01/13/19 20:12 Albumin 2.9 g/dl (3.4-5.0) L 01/13/19 20:12 Mild hyponatremia. No ELOY. o Nonfasting hyperglycemia. o Elevated Alkaline Phosphatase - Consistent with CA mets Normal troponin INR, PTT INR 1.11 (0.83-1.09) H 01/13/19 20:12 01/13/19 21:36 c CXR my interpretation: blunting of left costophrenic angle. port noted on the right. drain noted on the left. - Pending official read 01/16/19 08:01 c Official CXR report: left chest tube, infiltrate with fluid and atelectasis left base, right port and relatively clear lung. right abdominal clips. calcification fo right shoudler. since prior study 01/03/2019, there is a possible tiny peripheral left pneumothorax. 01/13/19 21:59 o PO2 24.8 VBG otherwise normal. 01/13/19 22:44 c Radiologist called, pt has left sided DVT up to femoral vein. g - Lovenox 60 mg ordered - 1 mg/kg dose would be 47 mg, dosing only available in 40 mg, 60 mg and 80 mg Pt reported increasing pain. g - Tylenol IV ordered. 01/13/19 23:22 c CTA report: acute pulmonary embolism with several right upper lobe segmental emboli. decreased left anterior mediastinal mass lesion porbably representing confluent lymphadenopathy. interval resolution of large pericardial effusion. decreased size of left pleural effusion, currently small to moderate, previously very large. The pt is status post interval thoracentesis and interval placement of a percutaneous pleural drainage catheter. interval resolution of right pleural effusion. very numerous bilateral upper and lower lung field pulmonary nodules seen without obvious interval change. 2 cm left renal upper pole intracortical mass lesion. focal metastatic neoplastic disease within the partially imaged right hepatic lobe posteriorly. r refinery technician called and reported line did not flush. He used a test of 20 cc of normal saline and 20 cc of IV contrast, which infiltrated. Left UE Examination: 2+ radial pulse, no warmth to left upper extremity, no swelling, no ecchymoses or discoloration. Pt to be admitted for PE, DVT. Dr. Marie paged. 01/13/19 23:[address] Marie about the case, he recs admission. Pending admission. *DC/Admit/Observation/Transfer Diagnosis at time of Disposition: Pulmonary embolism, DVT (deep venous thrombosis), History of malignant neoplasm metastatic to lung - Discharge Dispostion Condition at time of disposition: Guarded Decision to Admit order: Yes - Referrals - Patient Instructions - Post Discharge Activity
--- NOTE | 2019-01-13 19:53 | PDOC ---
Attending Attestation - HPI HPI: 01/13/19 20:31 The patient is a 63 year old female, with a significant past medical history of hypertension, diabetes, pancreatic CA (with lung mets, not currently on chemo because she is ill will restart next month), who presents to the emergency department with, shortness of breath and chest pain. Patient describes her chest pain as left wall with associated cough and 2.5 weeks of LLE swelling. She denies recent fevers, chills, headache or dizziness. She denies recent nausea, vomit, diarrhea or constipation. She denies recent dysuria, frequency, urgency or hematuria. Allergies: NKDA Past surgical history: Cholecystectomy and Pancreatic CA resection - Physicial Exam PE: 01/13/19 20:31 Agree with resident exam. - Medical Decision Making 01/13/19 23:[address] Marie, patient's PCP, Dr. Kumar (EM resident) discussed and accepted case. <Irving Peterson - Last Filed: 01/13/19 23:55> - Resident Resident Name: Anna Marie Kumar - ED Attending Attestation I have performed the following: I have examined & evaluated the patient, The case was reviewed & discussed with the resident, I agree w/resident's findings & plan - Medical Decision Making 01/13/19 23:59 63-year-old female with metastatic cancer now with leg swelling and shortness of breath Radiology studies are consistent with proximal DVT as well as multiple right- sided pulmonary emboli Lovenox given in the emergency department Patient be admitted by her primary care physician for further management family has maintained full CODE STATUS <Linda Campos - Last Filed: 01/14/19 00:00> Attestations - Attestations 01/13/19 20:31 Documentation prepared by Irving Peterson, acting as medical transcription radiology for Linda Campos DO. <Irving Peterson - Last Filed: 01/13/19 23:55>
[2019-01-13 20:25] LABS: BASO % 1.1 % (0-2.0); HEMATOCRIT 33.2 % (32.4-45.2); HEMOGLOBIN 11.5 GM/dL (10.7-15.3); LYMPH % 20.9 % (8-40); MCH 29.9 pg (25.7-33.7); MCHC 34.7 g/dl (32.0-36.0); MEAN CELL VOLUME 86.3 fl (80-96); MEAN PLT VOLUME 8.1 fl (7.5-11.1); MONO % 5.9 % (3.8-10.2); NEUT % 70.1 % (42.8-82.8); PLATELET COUNT 243 K/MM3 (134-434); RBC 3.85 M/mm3 (3.60-5.2); RDW 17.4 % (11.6-15.6); WHITE BLOOD COUNT 9.2 K/mm3 (4.0-10.0)
[2019-01-13 20:41] LABS: INR 1.11 (0.83-1.09); PROTHROMBIN TIME (PATIENT) 13.1 SEC (9.7-13.0)
[2019-01-13 20:44] LABS: ACTIVATED PTT 28.1 SECONDS (25.2-36.5)
[2019-01-13 21:11] LABS: VENOUS PC02 44.6 mmHg (38-52); VENOUS PH 7.35 (7.32-7.42); VENOUS PO2 24.8 mmHg (28-48)
[2019-01-13 21:22] LABS: ALBUMIN 2.9 g/dl (3.4-5.0); ALK PHOS 274 U/L (45-117); ANION GAP 12 MMOL/L (8-16); BILIRUBIN,TOTAL 0.6 mg/dL (0.2-1); BLOOD UREA NITROGEN 12 mg/dL (7-18); CALCIUM 8.6 mg/dL (8.5-10.1); CHLORIDE 101 mmol/L (98-107); CO2 21 mmol/L (21-32); CREATININE 0.6 mg/dL (0.55-1.3); GLUCOSE,RANDOM 232 mg/dL (74-106); SGOT/AST 26 U/L (15-37); SGPT/ALT 15 U/L (13-61); SODIUM 133 mmol/L (136-145); TOT PROT 7.1 g/dl (6.4-8.2)
[2019-01-13] MEDS ORDERED: ENOXAPARIN NA (PORCINE) 40 MG/0.4 ML DISP.SYRIN SQ ONE ×2 (22:44→22:49)
[2019-01-13] MEDS ORDERED: ACETAMINOPHEN 1000 MG/100 ML VIAL (NON FORMULARY) IVPB ONE (22:50)
[2019-01-13] MEDS ORDERED: ACETAMINOPHEN INJECTION 100 ML IVPB ONE (22:58)
[2019-01-13] MEDS ORDERED: ENOXAPARIN NA (PORCINE) 60 MG/0.6 ML DISP.SYRIN SQ SCH (23:00)
[2019-01-13] MEDS ORDERED: ENOXAPARIN NA (PORCINE) 60 MG/0.6 ML DISP.SYRIN SQ ONE (23:03)
[2019-01-14] MEDS ORDERED: ONDANSETRON 4 MG/2 ML VIAL IVPUSH ONE (01:33)
[2019-01-14] MEDS ORDERED: morphine SULFATE 4 MG/ML VIAL IVPUSH ONE (01:33)
[2019-01-14] MEDS ORDERED: morphine SULFATE 4 MG/ML VIAL ONE (01:41)
[2019-01-14] MEDS ORDERED: ONDANSETRON 4 MG/2 ML VIAL ONE (02:23)
--- NOTE | 2019-01-14 11:53 | EKG ---
Test Reason : Blood Pressure : / mmHG Vent. Rate : 103 BPM Atrial Rate : 103 BPM P-R Int : 114 ms QRS Dur : 062 ms QT Int : 330 ms P-R-T Axes : 065 023 019 degrees QTc Int : 432 ms POOR DATA QUALITY, INTERPRETATION MAY BE ADVERSELY AFFECTED SINUS TACHYCARDIA POSSIBLE LEFT ATRIAL ENLARGEMENT SEPTAL INFARCT (CITED ON OR BEFORE 16-MAY-2016) ABNORMAL ECG WHEN COMPARED WITH ECG OF 28-NOV-2018 11:03, NONSPECIFIC T WAVE ABNORMALITY NOW EVIDENT IN INFERIOR LEADS Confirmed by MD TERRELL, ADRIANA ([id number]) on 01/14/2019 11:53:20 AM Referred By: Confirmed By:ADRIANA TEJADA MD
[2019-01-14] MEDS ORDERED: HEPARIN NA (PORCINE) 5,000 UNITS/ML 1ML VIAL IVPUSH PRN ×2 (12:10)
[2019-01-14] MEDS ORDERED: oxyCODONE HCL 5 MG TABLET ONE ×2 (12:44→17:02)
[2019-01-14] MEDS: oxyCODONE HCL 5 MG TABLET PO PRN ×2 (12:45→17:09)
[2019-01-14] MEDS: HEPARIN SOD,PORK IN 0.45% NACL 25,000 UNITS/500 ML INFUS.BAG IVPB SCH (13:31)
[2019-01-14] MEDS ORDERED: amLODIPine BESYLATE 5 MG TABLET (FP) ONE (13:48)
[2019-01-14] MEDS ORDERED: RANITIDINE HCL 150 MG TABLET (FP) ONE (13:48)
[2019-01-14] MEDS ORDERED: RAMIPRIL 5 MG CAPSULE (FP) ONE (13:48)
[2019-01-14] MEDS: RAMIPRIL 5 MG CAPSULE (FP) PO SCH (13:49)
[2019-01-14] MEDS: amLODIPine BESYLATE 5 MG TABLET (FP) PO SCH (13:49)
[2019-01-14] MEDS: RANITIDINE HCL 150 MG TABLET (FP) PO SCH (13:49)
[2019-01-14] MEDS ORDERED: metFORMIN HCL 500 MG TABLET (FP) ONE (17:02)
[2019-01-14] MEDS: metFORMIN HCL 500 MG TABLET (FP) PO SCH (17:10)
[2019-01-14] MEDS: LIPASE/PROTEASE/AMYLASE 6,000 UNIT CAPSULE PO SCH (18:09)
[2019-01-15 01:03] VITALS: BMI 20.9
[2019-01-15] MEDS: oxyCODONE HCL 5 MG TABLET PO PRN ×4 (02:13→19:17)
[2019-01-15] MEDS: metFORMIN HCL 500 MG TABLET (FP) PO SCH ×3 (06:29→16:58)
[2019-01-15 07:25] LABS: BASO % 0.6 % (0-2.0); EOS % 2.6 % (0-4.5); HEMOGLOBIN 9.5 GM/dL (10.7-15.3); LYMPH % 21.7 % (8-40); MCHC 33.9 g/dl (32.0-36.0); MEAN CELL VOLUME 85.6 fl (80-96); MEAN PLT VOLUME 7.8 fl (7.5-11.1); MONO % 6.3 % (3.8-10.2); NEUT % 68.8 % (42.8-82.8); PLATELET COUNT 263 K/MM3 (134-434); RBC 3.27 M/mm3 (3.60-5.2); RDW 17.6 % (11.6-15.6); WHITE BLOOD COUNT 8.4 K/mm3 (4.0-10.0)
[2019-01-15 07:50] LABS: ALBUMIN 2.8 g/dl (3.4-5.0); ALK PHOS 250 U/L (45-117); ANION GAP 8 MMOL/L (8-16); BILIRUBIN,TOTAL 0.6 mg/dL (0.2-1); BLOOD UREA NITROGEN 6 mg/dL (7-18); CALCIUM 8.7 mg/dL (8.5-10.1); CHLORIDE 98 mmol/L (98-107); CO2 27 mmol/L (21-32); CREATININE 0.7 mg/dL (0.55-1.3); GLUCOSE,RANDOM 216 mg/dL (74-106); POTASSIUM 4.7 mmol/L (3.5-5.1); SGOT/AST 12 U/L (15-37); SGPT/ALT 11 U/L (13-61); SODIUM 133 mmol/L (136-145); TOT PROT 6.3 g/dl (6.4-8.2)
[2019-01-15] MEDS ORDERED: PT OWN MED DRAWER 7, Y5N ONE (09:08)
[2019-01-15] MEDS: RANITIDINE HCL 150 MG TABLET (FP) PO SCH (10:00)
[2019-01-15] MEDS: amLODIPine BESYLATE 5 MG TABLET (FP) PO SCH (10:00)
[2019-01-15] MEDS: RAMIPRIL 5 MG CAPSULE (FP) PO SCH (10:00)
[2019-01-15] MEDS: LIPASE/PROTEASE/AMYLASE 6,000 UNIT CAPSULE PO SCH ×3 (10:00→17:31)
--- NOTE | 2019-01-15 11:01 | HP ---
DATE OF ADMISSION: 01/13/2019 HISTORY OF PRESENT ILLNESS: This is a 63-year-old female known to have pancreatic CA being followed at [facility] who came to the emergency room day before yesterday night with complaints of shortness of breath, diagnosed to have pulmonary embolism and left leg DVT. She was started on heparin yesterday, and this morning, she says she is feeling better. She is also known to have hypertension on amlodipine and Ramipril at home. She lives at home with her family. PHYSICAL EXAMINATION: General: Today, she is awake, alert, oriented, not in distress. Vital signs: Blood pressure is 140/80, pulse 72, respirations 20, temperature 98. HEENT: Unremarkable. Lungs: Bilateral crepitations heard. Heart: S1, S2 normal. No S3, S4. Abdomen: Soft. Legs: Edema present on the left lower extremity. Neurological: Grossly normal. LABORATORY REPORTS: WBC 8.4, hemoglobin 9.5, hematocrit 28. Chemistry/electrolytes are normal, blood sugar 216, creatinine 0.7, BUN 6. On IV heparin. Now, PTT is 73. IMAGING: Chest x-ray showed infiltrate with atelectasis at the right base. Several emboli seen with the CT scan, right upper lobe. IMPRESSION: Pulmonary embolism, deep venous thrombosis, pancreatic cancer. PLAN: Pulmonary consult, Dr. Morgan, IV heparin. Will follow. MEMO CERVANTES M.D. [id number]
--- NOTE | 2019-01-15 11:08 | PN ---
Progress Note (short form) - Note Progress Note: PULMONARY CONSULTATION DICTATED 01/15/19 IMP BILATERAL PULMONARY EMBOLI ?UNPROVOKED + H/O METASTATIC CA,? PROVOKED RECENT SURGERY VAT,PERICARDIAL WINDOW, LLE DVT METASTATIC PANCREATIC CA WITH LUNG AND PLEURAL METS LEFT PLEURAL EFFUSION S/P VAT,PLEUR-X RECENT RECENT PERICARDIAL EFFUSION S/P WINDOW HTN DM PLAN AC CONSIDER LOVENOX O2 NEEDED CHEMO PER ONCOLOGY ANALGESICS DR HOPPER Problem List - Problems (1) DVT (deep venous thrombosis) Code(s): I82.409 - ACUTE EMBOLISM AND THOMBOS UNSP DEEP VN UNSP LOWER EXTREMITY (2) History of malignant neoplasm metastatic to lung Code(s): Z85.118 - PERSONAL HISTORY OF MALIGNANT NEOPLASM OF BRONCHUS AND LUNG (3) Pulmonary embolism Code(s): I26.99 - OTHER PULMONARY EMBOLISM WITHOUT ACUTE COR PULMONALE (4) Diabetes mellitus Code(s): E11.9 - TYPE 2 DIABETES MELLITUS WITHOUT COMPLICATIONS (5) Pancreatic cancer metastasized to lung Code(s): C25.9 - MALIGNANT NEOPLASM OF PANCREAS, UNSPECIFIED; C78.00 - SECONDARY MALIGNANT NEOPLASM OF UNSPECIFIED LUNG (6) Pancreatic mass Code(s): K86.9 - DISEASE OF PANCREAS, UNSPECIFIED
--- NOTE | 2019-01-15 12:28 | CONS ---
DATE OF CONSULTATION: 01/15/2019 REFERRING PHYSICIAN: Evin Marie MD The patient is a 63-year-old female known to me from previous hospitalization, with significant past medical history of hypertension, diabetes , pancreatic cancer diagnosed in 2016 status post chemotherapy, radiation therapy, again followed by chemo for metastatic lung lesions recently started approximately 2 weeks ago, recently hospitalized at [facility] in November 2018 secondary to shortness of breath. At the time, she was noted to have a large left pleural effusion and pericardial effusion. Patient underwent a left VATS with PleurX placement as well as insertion of a pericardial window. Patient tolerated the procedure well, was discharged in stable condition. Patient was readmitted on January 13 with complaint of left lower extremity swelling, left-sided chest wall pain, and cough for a few days' duration. Patient underwent a CTA of the chest, revealed bilateral pulmonary emboli. She was also noted to have bilateral pulmonary nodules. Duplex of the lower extremity revealed a left lower extremity DVT. The patient was transferred up to telemetry unit and started on anticoagulation. Patient is a nonsmoker. There is no history of occupational exposure to chemicals or fumes. There is no history of a DVT or PE in the past. She was born in the [place] and moved to the [place] many years ago. PAST MEDICAL HISTORY: Again includes pancreatic cancer with lung and pleural metastasis, hypertension, pericardial effusion, pleural effusion status post PleurX placement, and diabetes. REVIEW OF SYSTEMS: Positive shortness of breath. Positive left-sided chest pain. Positive left lower extremity swelling. No hemoptysis. No abdominal pain. No fevers, no chills. CURRENT MEDICATIONS: Include Altace, heparin, Glucophage, Creon, Norvasc, Zantac, and Roxicodone. PHYSICAL EXAMINATION: General: The patient is a thin female, well developed, well nourished, awake, alert, currently in no acute distress. Vital Signs: She is afebrile. Blood pressure is 126/78. Respiratory rate is 20. O2 saturation is 96% on 3 L. HEENT: Normocephalic, atraumatic. Neck: Supple. Heart: Regular, S1, S2. Chest: Diminished breath sounds to the left base. Abdomen: Soft. Bowel sounds are positive. Extremities: With mild swelling of the left thigh, nontender. LABORATORY: WBC is 8.4, hemoglobin 9.5, hematocrit 28, platelet count 263,000. PTT is 73. Chemistries: BUN 6, creatinine 0.7. Chest CT revealed decreased size of the left anterior mediastinal mass. There are also bilateral pulmonary emboli, small to moderate left pleural effusion, partially loculated. IMPRESSION: 1. Left lower extremity deep vein thrombosis. 2. Bilateral pulmonary emboli,?unprovoked, secondary to history of metastatic cancer with underlying hypercoagulable state,cannot exclude provoked secondary to recent surgery. 3. Possible unprovoked secondary to recent video-assisted thoracoscopy, pleural biopsy, insertion of PleurX and pericardial window. 4. Advanced metastatic pancreatic carcinoma with lung and pleural metastasis. 5. Diabetes. 6. History of pericardial effusion status post window. PLAN: Continue anticoagulation. Consider change to Lovenox. Supplemental O2 as needed, chemo as per Oncology, and analgesics. O2 LIZBETH HOPPER M.D. [id number] MTDD
[2019-01-15] MEDS: HEPARIN SOD,PORK IN 0.45% NACL 25,000 UNITS/500 ML INFUS.BAG IVPB SCH (12:41)
[2019-01-15] MEDS: INSULIN SLIDING SCALE (NOVOLOG) 1 VIAL SQ SCH (21:28)
[2019-01-16] MEDS: oxyCODONE HCL 5 MG TABLET PO PRN ×4 (06:52→22:52)
[2019-01-16] MEDS: metFORMIN HCL 500 MG TABLET (FP) PO SCH ×2 (06:54→17:15)
[2019-01-16] MEDS: INSULIN SLIDING SCALE (NOVOLOG) 1 VIAL SQ SCH ×4 (06:54→21:45)
[2019-01-16 07:21] LABS: HEMATOCRIT 31.7 % (32.4-45.2); HEMOGLOBIN 10.6 GM/dL (10.7-15.3); MCH 28.9 pg (25.7-33.7); MCHC 33.5 g/dl (32.0-36.0); MEAN CELL VOLUME 86.4 fl (80-96); PLATELET COUNT 314 K/MM3 (134-434); RBC 3.67 M/mm3 (3.60-5.2); RDW 17.7 % (11.6-15.6); WHITE BLOOD COUNT 9.1 K/mm3 (4.0-10.0)
--- NOTE | 2019-01-16 09:20 | PN ---
Progress Note, Physician Chief Complaint: Feels better History of Present Illness: Dr Crouch pulmonery consult appreciated - Current Medication List Current Medications: Active Medications Amlodipine Besylate (Norvasc -) 5 mg PO DAILY [facility] Last Admin: 01/15/19 10:00 Dose: 5 mg Heparin Sodium (Porcine) (Heparin -) 1,000 unit IVPUSH PRN PRN PRN Reason: Heparin Heparin Sodium (Porcine) (Heparin -) 5,000 unit IVPUSH PRN PRN PRN Reason: Heparin HEPARIN SOD,PORK IN 0.45% NACL (Heparin-1/2ns 25,000 Units/500) 25,000 units in 500 mls @ 20 mls/hr IVPB TITR [facility]; Protocol Last Admin: 01/15/19 12:41 Dose: Not Given Insulin Aspart (Novolog Vial Sliding Scale -) 1 vial SQ ACHS [facility]; Protocol Last Admin: 01/16/19 06:54 Dose: Not Given Metformin HCl (Glucophage -) 500 mg PO BIDAC [facility] Last Admin: 01/16/19 06:54 Dose: Not Given Oxycodone HCl (Roxicodone -) 5 mg PO Q4H PRN PRN Reason: PAIN LEVEL 6-10 Last Admin: 01/16/19 06:52 Dose: 5 mg Pancrelipase (Jacklyn Walsh 6,000 Units Capsule) 4 cap PO TIDCM [facility] Last Admin: 01/15/19 17:31 Dose: 4 cap Ramipril (Altace -) 5 mg PO DAILY [facility] Last Admin: 01/15/19 10:00 Dose: 5 mg Ranitidine HCl (Zantac -) 150 mg PO DAILY [facility] Last Admin: 01/15/19 10:00 Dose: 150 mg - Objective Vital Signs: Vital Signs Temperature 98.1 F 01/16/19 06:00 Pulse Rate 98 H 01/16/19 06:00 Respiratory Rate 20 01/16/19 06:00 Blood Pressure 124/86 01/16/19 06:00 O2 Sat by Pulse Oximetry (%) 96 01/15/19 21:00 Labs: CBC, BMP 01/16/19 06:00 01/15/19 06:17 INR, PTT INR 1.11 (0.83-1.09) H 01/13/19 20:12
--- NOTE | 2019-01-16 10:06 | ECHO ---
Name: PAULSONCORMIER, SHARATH Exam:Adult Echocardiogram Study Date: 01/15/2019 01:23 PM Age: 63 yrs Reason For Study: RV FUNCTION PULMONARY EMBOLISM Height: 59 in Weight: 103 lb BSA: 1.4 m2 MMode/2D Measurements & Calculations IVSd: 0.97 cm Ao root diam: 2.5 cm LVIDd: 3.1 cm LA dimension: 2.3 cm LVIDs: 1.9 cm LVPWd: 0.76 cm EDV(Teich): 38.3 ml LVOT diam: 2.1 cm ESV(Teich): 11.8 ml Doppler Measurements & Calculations MV E max charles: 63.2 cm/sec Ao V2 max: 131.7 cm/sec MV A max charles: 91.8 cm/sec Ao max P.9 mmHg MV E/A: 0.69 MV dec time: 0.20 sec JAYCEE(V,D): 2.7 cm2 LV V1 max P.0 mmHg TR max charles: 237.9 cm/sec LV V1 max: 100.2 cm/sec TR max P.9 mmHg Med Peak E' Charles: 3.5 cm/sec Med E/e': 18.0 Lat Peak E' Charles: 3.7 cm/sec Lat E/e': 17.1 Left Ventricle There is moderate concentric left ventricular hypertrophy. Ejection Fraction = 65%. The left ventricu lar ejection fraction is normal. E/A reversal consistent with but not diagnostic of poor LV compliance. T he left ventricular wall motion is normal. Paradoxical septal motion is consistent with right ventricular vol ume overload. Right Ventricle The right ventricle is mildly dilated. The right ventricular systolic function is mildly reduced. Mitral Valve There is mild mitral valve thickening. There is trace to mild mitral regurgitation. Tricuspid Valve There is mild tricuspid regurgitation. Right ventricular systolic pressure is 29 mmhg. Great Vessels The aortic root is normal size. Pericardium/Pleura Small to moderate pericardial effusion (1 cm) without hemodynamic significance.; fibrinous strands no bryan.. Interpretation Summary Ejection Fraction = 65%. There is moderate concentric left ventricular hypertrophy. E/A reversal consistent with but not diagnostic of poor LV compliance The left ventricular wall motion is normal. There is mild tricuspid regurgitation. Right ventricular systolic pressure is 29 mmhg. Small to moderate pericardial effusion (1 cm) without hemodynamic significance.; fibrinous strands no bryan.. The right ventricle is mildly dilated. The right ventricular systolic function is mildly reduced. Paradoxical septal motion is consistent with right ventricular volume overload. There is mild mitral valve thickening. There is trace to mild mitral regurgitation. The aortic root is normal size. Michelet Christie MD 01/16/2019 10:05 AM
--- NOTE | 2019-01-16 10:28 | PN ---
Progress Note, Physician History of Present Illness: pulmonary alert,comfortable,less cp,sob improving - Current Medication List Current Medications: Active Medications Amlodipine Besylate (Norvasc -) 5 mg PO DAILY [facility] Last Admin: 01/15/19 10:00 Dose: 5 mg Heparin Sodium (Porcine) (Heparin -) 1,000 unit IVPUSH PRN PRN PRN Reason: Heparin Heparin Sodium (Porcine) (Heparin -) 5,000 unit IVPUSH PRN PRN PRN Reason: Heparin HEPARIN SOD,PORK IN 0.45% NACL (Heparin-1/2ns 25,000 Units/500) 25,000 units in 500 mls @ 20 mls/hr IVPB TITR [facility]; Protocol Last Admin: 01/15/19 12:41 Dose: Not Given Insulin Aspart (Novolog Vial Sliding Scale -) 1 vial SQ ACHS [facility]; Protocol Last Admin: 01/16/19 06:54 Dose: Not Given Metformin HCl (Glucophage -) 500 mg PO BIDAC [facility] Last Admin: 01/16/19 06:54 Dose: Not Given Oxycodone HCl (Roxicodone -) 5 mg PO Q4H PRN PRN Reason: PAIN LEVEL 6-10 Last Admin: 01/16/19 06:52 Dose: 5 mg Pancrelipase (Creon Dr 6,000 Units Capsule) 4 cap PO TIDCM [facility] Last Admin: 01/15/19 17:31 Dose: 4 cap Ramipril (Altace -) 5 mg PO DAILY [facility] Last Admin: 01/15/19 10:00 Dose: 5 mg Ranitidine HCl (Zantac -) 150 mg PO DAILY [facility] Last Admin: 01/15/19 10:00 Dose: 150 mg - Objective Vital Signs: Vital Signs Temperature 98.1 F 01/16/19 06:00 Pulse Rate 98 H 01/16/19 06:00 Respiratory Rate 20 01/16/19 06:00 Blood Pressure 124/86 01/16/19 06:00 O2 Sat by Pulse Oximetry (%) 96 01/15/19 21:00 Constitutional: Yes: Well Nourished, Calm Eyes: Yes: WNL HENT: Yes: WNL Neck: Yes: WNL Cardiovascular: Yes: Regular Rate and Rhythm, S1, S2 Respiratory: Yes: CTA Bilaterally Gastrointestinal: Yes: Normal Bowel Sounds, Soft Extremities: Yes: WNL, Other (less swelling left leg) Labs: CBC, BMP 01/16/19 06:00 01/15/19 06:17 INR, PTT INR 1.11 (0.83-1.09) H 01/13/19 20:12 Problem List - Problems (1) DVT (deep venous thrombosis) Code(s): I82.409 - ACUTE EMBOLISM AND THOMBOS UNSP DEEP VN UNSP LOWER EXTREMITY (2) History of malignant neoplasm metastatic to lung Code(s): Z85.118 - PERSONAL HISTORY OF MALIGNANT NEOPLASM OF BRONCHUS AND LUNG (3) Pulmonary embolism Code(s): I26.99 - OTHER PULMONARY EMBOLISM WITHOUT ACUTE COR PULMONALE (4) Diabetes mellitus Code(s): E11.9 - TYPE 2 DIABETES MELLITUS WITHOUT COMPLICATIONS (5) Pancreatic cancer metastasized to lung Code(s): C25.9 - MALIGNANT NEOPLASM OF PANCREAS, UNSPECIFIED; C78.00 - SECONDARY MALIGNANT NEOPLASM OF UNSPECIFIED LUNG (6) Pancreatic mass Code(s): K86.9 - DISEASE OF PANCREAS, UNSPECIFIED Assessment/Plan IMP BILATERAL PULMONARY EMBOLI ?UNPROVOKED + H/O METASTATIC CA,? PROVOKED RECENT SURGERY VAT,PERICARDIAL WINDOW, LLE DVT METASTATIC PANCREATIC CA WITH LUNG AND PLEURAL METS LEFT PLEURAL EFFUSION S/P VAT,PLEUR-X RECENT RECENT PERICARDIAL EFFUSION S/P WINDOW HTN DM PLAN AC CONSIDER LOVENOX ON DISCHARGE O2 NEEDED CHEMO PER ONCOLOGY ANALGESICS DR HOPPER Problem List - Problems (1) DVT (deep venous thrombosis) Code(s): I82.409 - ACUTE EMBOLISM AND THOMBOS UNSP DEEP VN UNSP LOWER EXTREMITY (2) History of malignant neoplasm metastatic to lung Code(s): Z85.118 - PERSONAL HISTORY OF MALIGNANT NEOPLASM OF BRONCHUS AND LUNG (3) Pulmonary embolism Code(s): I26.99 - OTHER PULMONARY EMBOLISM WITHOUT ACUTE COR PULMONALE (4) Diabetes mellitus Code(s): E11.9 - TYPE 2 DIABETES MELLITUS WITHOUT COMPLICATIONS (5) Pancreatic cancer metastasized to lung Code(s): C25.9 - MALIGNANT NEOPLASM OF PANCREAS, UNSPECIFIED; C78.00 - SECONDARY MALIGNANT NEOPLASM OF UNSPECIFIED LUNG (6) Pancreatic mass Code(s): K86.9 - DISEASE OF PANCREAS, UNSPECIFIED
[2019-01-16] MEDS: amLODIPine BESYLATE 5 MG TABLET (FP) PO SCH (10:41)
[2019-01-16] MEDS: RAMIPRIL 5 MG CAPSULE (FP) PO SCH (10:41)
[2019-01-16] MEDS: RANITIDINE HCL 150 MG TABLET (FP) PO SCH (10:41)
[2019-01-16] MEDS: LIPASE/PROTEASE/AMYLASE 6,000 UNIT CAPSULE PO SCH ×3 (10:44→17:15)
--- NOTE | 2019-01-16 11:26 | CON.CARD ---
Cardiology Consult (text) - Consultation Consultation Note: cardiology,covering for Dr Albarado cc: sob hpi: 63 f hx pancreatic ca s/p surgery with lung mets, htn, dm, malignant pleural and pericardial effusions s/p vats and pericardial window 11/2018, here with sob. Pt with chronic sob but has been worse past few days. No anginal cp, palps dizzy loc pnd orthopnea. Mild le edema. Found to have new dvt and PE, now on hep gtt. pmh: per hpi psh: per hpi social: no tob fam: no premature cad, scd ros: per hpi; no nvd, fever, gib hematuria dysuria headache vision changes meds: Home Medications Medication Instructions Recorded Ramipril [Altace] 5 mg PO DAILY 05/16/16 Amlodipine Besylate [Norvasc -] 5 mg PO DAILY 11/28/18 Lipase/Protease/Amylase [Jacklyn Dr 1 each PO TID 11/28/18 24,000 Units Capsule] Ranitidine [Zantac -] 150 mg PO DAILY 11/28/18 metFORMIN HCL [Metformin HCl] 500 mg PO BID 11/28/18 Tramadol HCl 50 mg PO BID #30 tablet MDD 2 12/10/18 pe: Vital Signs Period Temp Pulse Resp BP Sys/Venegas Pulse Ox Last 24 Hr 97.5 F-98.8 F 93-116 18-20 124-147/76-88 96 nad no jvd rrr s1s2 no mrg scattered rhonchi, dec bs bases, nl eff aao3 trace le edema bl, no c/c abd nt nd pos bs no diaphoresis pos dp pt no carotid bruits Laboratory Last Values WBC 9.1 K/mm3 (4.0-10.0) 01/16/19 06:00 RBC 3.67 M/mm3 (3.60-5.2) 01/16/19 06:00 Hgb 10.6 GM/dL (10.7-15.3) L 01/16/19 06:00 Hct 31.7 % (32.4-45.2) L 01/16/19 06:00 MCV 86.4 fl (80-96) 01/16/19 06:00 MCH 28.9 pg (25.7-33.7) 01/16/19 06:00 MCHC 33.5 g/dl (32.0-36.0) 01/16/19 06:00 RDW 17.7 % (11.6-15.6) H 01/16/19 06:00 Plt Count 314 K/MM3 (134-434) 01/16/19 06:00 MPV 8.0 fl (7.5-11.1) 01/16/19 06:00 Absolute Neuts (auto) 5.8 K/mm3 (1.5-8.0) 01/15/19 06:17 Neutrophils % 68.8 % (42.8-82.8) 01/15/19 06:17 Lymphocytes % 21.7 % (8-40) 01/15/19 06:17 Monocytes % 6.3 % (3.8-10.2) 01/15/19 06:17 Eosinophils % 2.6 % (0-4.5) 01/15/19 06:17 Basophils % 0.6 % (0-2.0) 01/15/19 06:17 Nucleated RBC % 0 % (0-0) 01/15/19 06:17 PT with INR 13.10 SEC (9.7-13.0) H 01/13/19 20:12 INR 1.11 (0.83-1.09) H 01/13/19 20:12 PTT (Actin FS) 56.1 SECONDS (25.2-36.5) H 01/16/19 06:00 VBG pH 7.35 (7.32-7.42) 01/13/19 20:35 POC VBG pCO2 44.6 mmHg (38-52) 01/13/19 20:35 POC VBG pO2 24.8 mmHg (28-48) L 01/13/19 20:35 Mixed VBG HCO3 24.5 meq/L (19-25) 01/13/19 20:35 Sodium 133 mmol/L (136-145) L 01/15/19 06:17 Potassium 4.7 mmol/L (3.5-5.1) 01/15/19 06:17 Chloride 98 mmol/L (98-107) 01/15/19 06:17 Carbon Dioxide 27 mmol/L (21-32) 01/15/19 06:17 Anion Gap 8 MMOL/L (8-16) 01/15/19 06:17 BUN 6 mg/dL (7-18) L 01/15/19 06:17 Creatinine 0.7 mg/dL (0.55-1.3) 01/15/19 06:17 Creat Clearance w eGFR > 60 (>60) 01/15/19 06:17 POC Glucometer 236 UNITS (80-120) 01/16/19 11:19 Random Glucose 216 mg/dL (74-106) H 01/15/19 06:17 Calcium 8.7 mg/dL (8.5-10.1) 01/15/19 06:17 Total Bilirubin 0.6 mg/dL (0.2-1) 01/15/19 06:17 AST 12 U/L (15-37) L 01/15/19 06:17 ALT 11 U/L (13-61) L 01/15/19 06:17 Alkaline Phosphatase 250 U/L (45-117) H 01/15/19 06:17 Troponin I < 0.02 ng/ml (0.00-0.05) 01/13/19 20:12 Total Protein 6.3 g/dl (6.4-8.2) L 01/15/19 06:17 Albumin 2.8 g/dl (3.4-5.0) L 01/15/19 06:17 Blood Type O POSITIVE 01/13/19 20:12 Antibody Screen Negative 01/13/19 20:12 cta chest: right pe, small-mod left eff ecg: sr, nl intervals, no ischemic changes tele: sr echo 11/2018: lvh, nl lvef, nl rv, mild tr, nl rvsp, mod peric eff, no tamponade a/p: 63 f hx pancreatic ca s/p surgery with lung mets, htn, dm, malignant pleural and pericardial effusions s/p vats and pericardial window 11/2018, here with sob. sob, PE, LE dvt: -no signs acs or chf -symptoms likely from PE, dvt -cont AC -check updated echo htn: -cont current meds. peric eff s/p window: -check updated echo -no signs tamponade
[2019-01-16] MEDS: HEPARIN SOD,PORK IN 0.45% NACL 25,000 UNITS/500 ML INFUS.BAG IVPB SCH (12:20)
[2019-01-17] MEDS ORDERED: PT OWN MED DRAWER 7, Y5N ONE (06:13)
[2019-01-17] MEDS: oxyCODONE HCL 5 MG TABLET PO PRN ×3 (06:57→14:53)
[2019-01-17] MEDS: metFORMIN HCL 500 MG TABLET (FP) PO SCH (06:57)
[2019-01-17 09:04] LABS: HEMATOCRIT 30.1 % (32.4-45.2); HEMOGLOBIN 10.2 GM/dL (10.7-15.3); MCH 29.2 pg (25.7-33.7); MCHC 33.8 g/dl (32.0-36.0); MEAN CELL VOLUME 86.4 fl (80-96); MEAN PLT VOLUME 8.7 fl (7.5-11.1); PLATELET COUNT 266 K/MM3 (134-434); RBC 3.48 M/mm3 (3.60-5.2); RDW 17.3 % (11.6-15.6); WHITE BLOOD COUNT 8.8 K/mm3 (4.0-10.0)
[2019-01-17] MEDS: LIPASE/PROTEASE/AMYLASE 6,000 UNIT CAPSULE PO SCH ×2 (09:04→12:04)
--- NOTE | 2019-01-17 09:48 | DS ---
Physical Examination Vital Signs: Vital Signs Temperature 98 F 01/17/19 05:41 Pulse Rate 85 01/17/19 05:41 Respiratory Rate 18 01/17/19 05:41 Blood Pressure 131/76 01/17/19 05:41 O2 Sat by Pulse Oximetry (%) 90 L 01/16/19 21:52 Findings/Remarks: Admitted with DVT Lt lower extrimity and PE Treted with IV heparin and her symptoms improved DC home with Lovenox Constitutional: Yes: No Distress Eyes: Yes: WNL HENT: Yes: WNL Neck: Yes: WNL, Rigid Respiratory: Yes: WNL, On Nasal O2 Gastrointestinal: Yes: WNL ...Rectal Exam: Yes: WNL Renal/: Yes: WNL Breast(s): Yes: WNL Peripheral Pulses WNL: Yes Psychiatric: Yes: Alert Labs: CBC, BMP 01/17/19 07:18 01/15/19 06:17 Discharge Summary Reason For Visit: DVT HX OF MALIGNANT NEOPLASM METASTATIC TO LUNG PU Current Active Problems DVT (deep venous thrombosis) (Acute) History of malignant neoplasm metastatic to lung (Acute) Pulmonary embolism (Acute) Condition: Guarded - Instructions Referrals: Evin Marie MD [Primary Care Provider] - - Home Medications Comprehensive Discharge Medication List: Ambulatory Orders Ramipril [Altace] 5 mg PO DAILY 05/16/16 Amlodipine Besylate [Norvasc -] 5 mg PO DAILY 11/28/18 Lipase/Protease/Amylase [Jacklyn Walsh 24,000 Units Capsule] 1 each PO TID 11/28/18 Ranitidine [Zantac -] 150 mg PO DAILY 11/28/18 metFORMIN HCL [Metformin HCl] 500 mg PO BID 11/28/18 Tramadol HCl 50 mg PO BID #30 tablet MDD 2 12/10/18
[2019-01-17] MEDS ORDERED: APIXABAN 5 MG TABLET PO SCH (10:00)
[2019-01-17] MEDS: RANITIDINE HCL 150 MG TABLET (FP) PO SCH (10:37)
[2019-01-17] MEDS: amLODIPine BESYLATE 5 MG TABLET (FP) PO SCH (10:37)
[2019-01-17] MEDS: RAMIPRIL 5 MG CAPSULE (FP) PO SCH (10:37)
--- NOTE | 2019-01-17 12:03 | PN ---
Progress Note (short form) - Note Progress Note: s: no cp palps dizzy; sob better o: Vital Signs Period Temp Pulse Resp BP Sys/Venegas Pulse Ox Last 24 Hr 98 F-99 F 85-106 18-18 131-147/76-90 90-97 nad no jvd rrr s1s2 no mrg scattered rhonchi, dec bs bases, nl eff aao3 trace le edema l>r, no c/c abd nt nd pos bs no diaphoresis Current Medications Generic Name Dose Route Start Last Admin Trade Name Freq PRN Reason Stop Dose Admin Amlodipine Besylate 5 mg 01/15/19 10:00 01/17/19 10:37 Norvasc - PO 5 mg DAILY PETRA Administration Apixaban 5 mg 01/17/19 10:00 01/17/19 10:37 Eliquis - PO 5 mg BID PETRA Administration Insulin Aspart 1 vial 01/15/19 22:00 01/16/19 21:45 Novolog Vial Sliding Scale - SQ 8 units ACHS PETRA Administration Protocol Metformin HCl 500 mg 01/14/19 16:30 01/17/19 06:57 Glucophage - PO 500 mg BIDAC PETRA Administration Oxycodone HCl 5 mg 01/14/19 12:12 01/17/19 10:54 Roxicodone - PO 5 mg Q4H PRN Administration PAIN LEVEL 6-10 Pancrelipase 4 cap 01/14/19 17:30 01/17/19 09:[address] 6,000 Units Capsule PO 4 cap TIDCM PETRA Administration Ramipril 5 mg 01/15/19 10:00 01/17/19 10:37 Altace - PO 5 mg DAILY PETRA Administration Ranitidine HCl 150 mg 01/15/19 10:00 01/17/19 10:37 Zantac - PO 150 mg DAILY PETRA Administration CBC, BMP 01/17/19 07:18 01/15/19 06:17 cta chest: right pe, small-mod left eff ecg: sr, nl intervals, no ischemic changes tele: sr echo 11/2018: lvh, nl lvef, nl rv, mild tr, nl rvsp, mod peric eff, no tamponade echo 12/2018: lvh, nl lvef, mild rve, mild dec rv fcn, mild tr, nl rvsp, small- mod eff, no tamponade a/p: 63 f hx pancreatic ca s/p surgery with lung mets, htn, dm, malignant pleural and pericardial effusions s/p vats and pericardial window 11/2018, here with sob. sob, PE, LE dvt: -no signs acs or chf -symptoms likely from PE, dvt -cont AC -echo here with mild right heart strain likely due to acute pe. Should have outpt cardio f/u to monitor. htn: -cont current meds. peric eff s/p window: -no signs tamponade on current echo
[2019-01-17] MEDS: INSULIN SLIDING SCALE (NOVOLOG) 1 VIAL SQ SCH ×2 (12:24→16:40)
[2019-01-17] MEDS ORDERED: oxyCODONE HCL 5 MG TABLET ONE (14:47)
[2019-01-17 15:28] VITALS: BP 135/87; PULSE 87; TEMP 98.2
[2019-01-17] MEDS ORDERED: oxyCODONE HCL 5 MG TABLET PO ONE (15:45)
--- NOTE | 2019-01-17 16:11 | PN ---
Progress Note (short form) - Note Progress Note: PULMONARY FAMILY IN ATTENDANCE RECENT 500 CC DRAINAGE FROM PLEUREX CXR IMPROVED Constitutional: Calm Eyes: Yes: WNL HENT: Yes: WNL Neck: Yes: WNL Cardiovascular: Yes: Regular Rate and Rhythm, S1, S2 Respiratory: Yes: CTA Bilaterally Gastrointestinal: Yes: Normal Bowel Sounds, Soft Extremities: Yes: WNL, Other (less swelling left leg) Labs: REVIEWED Problem List - Problems (1) DVT (deep venous thrombosis) Code(s): I82.409 - ACUTE EMBOLISM AND THOMBOS UNSP DEEP VN UNSP LOWER EXTREMITY (2) History of malignant neoplasm metastatic to lung Code(s): Z85.118 - PERSONAL HISTORY OF MALIGNANT NEOPLASM OF BRONCHUS AND LUNG (3) Pulmonary embolism Code(s): I26.99 - OTHER PULMONARY EMBOLISM WITHOUT ACUTE COR PULMONALE (4) Diabetes mellitus Code(s): E11.9 - TYPE 2 DIABETES MELLITUS WITHOUT COMPLICATIONS (5) Pancreatic cancer metastasized to lung Code(s): C25.9 - MALIGNANT NEOPLASM OF PANCREAS, UNSPECIFIED; C78.00 - SECONDARY MALIGNANT NEOPLASM OF UNSPECIFIED LUNG (6) Pancreatic mass Code(s): K86.9 - DISEASE OF PANCREAS, UNSPECIFIED Assessment/Plan IMP BILATERAL PULMONARY EMBOLI RECENT VAT,PERICARDIAL WINDOW, LLE DVT METASTATIC PANCREATIC CA WITH LUNG AND PLEURAL METS LEFT PLEURAL EFFUSION S/P VAT,PLEUR-X HTN DM PLAN AC CONSIDER LOVENOX ON DISCHARGE O2 NEEDED CHEMO PER ONCOLOGY ANALGESICS PROGNOSIS [facility] SEEMS APPROPRIATE Wili WREN MD
== END 2019-01-17 17:13 | disposition home health service (06) | DRG 134 ==
LOC: JER 19:24 → JERBED 23:50 → J4W 01-14 18:33
PROVIDERS: ADMIT Internal Medicine; ATTEND Internal Medicine
DX: I26.99 Other pulmonary embolism without acute cor pulmonale (principal); I10 Essential (primary) hypertension; E11.9 Type 2 diabetes mellitus without complications; I82.409 Acute embolism and thrombosis of unspecified deep veins of unspecified lower extremity; J91.0 Malignant pleural effusion; C25.9 Malignant neoplasm of pancreas, unspecified; C78.00 Secondary malignant neoplasm of unspecified lung
CPT/HCPCS: 36415; 71045-TC-FY; 71275-TC; 80053; 82803; 82962; 84484; 85025; 85027; 85610; 85730; 86850; 86900; 86901; 93005; 93010; 93306-TC; 93971-TC; 94761; 99285-25; J0131

== ENCOUNTER 2019-02-10 18:07 | Inpatient (IN) | payer OTHER ==
--- NOTE | 2019-02-10 19:13 | PDOC ---
History of Present Illness - General Chief Complaint: Pain, Acute Stated Complaint: PAIN Time Seen by Provider: 02/10/19 19:13 - History of Present Illness Initial Comments: 63yo F with PMH of pancreatic CA with lung metastasis, DVT/PE, DM, HTN presenting with pain on her left side. Patient states she had a drain placed on the left side of her chest to drain fluid from her lung on 12/05/18. Since that time, she has fluid drained regularly. She was discharged from the hospital on and since she had been discharged, a nurse has come to her home twice a week (on Mondays and ) for drainage. The nurse was supposed to come today, but did not show up. Per her daughter at the bedside, patient has taken her pain medicine prescribed by her primary care physician at 12noon and 4pm with minimal relief. Usually drainage of the fluid will help her pain the most. Patient reports shortness of breath at baseline and uses 2L O2 at home. Denies fevers, chills, chest pain, or abdominal pain. Thoracic surgeon: Dr. Molina Past History - Past Medical History Allergies/Adverse Reactions: Allergies Allergy/AdvReac Type Severity Reaction Status Date / Time No Known Allergies Allergy Verified 02/10/19 18:30 Home Medications: Ambulatory Orders Ramipril [Altace] 5 mg PO DAILY 05/16/16 Amlodipine Besylate [Norvasc -] 5 mg PO DAILY 11/28/18 Ranitidine [Zantac -] 150 mg PO DAILY 11/28/18 metFORMIN HCL [Metformin HCl] 500 mg PO BID 11/28/18 Apixaban [Eliquis] 5 mg PO DAILY 02/10/19 Lipase/Protease/Amylase [Jacklyn Walsh 6,000 Units Capsule] 2 cap PO TIDCM 02/10/19 Oxycodone HCl/Acetaminophen [Percocet 5-325 mg Tablet] 1 tab PO Q4H 02/10/19 Asthma: No Cancer: Yes (PANCREATIC) Cardiac Disorders: No CVA: No COPD: No CHF: No Diabetes: Yes HTN: Yes Hypercholesterolemia: No Seizures: No - Surgical History Cholecystectomy: Yes - Immunization History Immunization Up to Date: Yes - Suicide/Smoking/Psychosocial Hx Smoking History: Never smoked Have you smoked in the past 12 months: No Information on smoking cessation initiated: No Hx Alcohol Use: No Drug/Substance Use Hx: No Substance Use Type: None Review of Systems - Review of Systems Comments:: Constitutional: no fever, no chills HEENT: no throat pain, no dysphagia Cardiovascular: no chest pain, no palpitations Respiratory: no cough, +shortness of breath Gastrointestinal: no abdominal pain, +nausea Genitourinary: no dysuria, no frequency Musculoskeletal: no myalgia, no arthralgia Skin: no rash, no itching Neurologic: +headache, no dizziness *Physical Exam - Vital Signs Last Vital Signs Temp Pulse Resp BP Pulse Ox 97.8 F 113 H 17 139/89 91 L 02/10/19 18:28 18 18:28 02/10/19 18:28 02/10/19 18:28 02/10/19 18:28 - Physical Exam Comments: General: Awake, alert, and fully oriented, in no acute distress Head: No signs of trauma Eyes: EOMI, sclera anicteric ENT: Moist mucus membranes Neck: Normal ROM, supple Lungs: Crackles on left; dressing present over drain on L side of chest, clean/ dry/intact Cardio: Regular rhythm, S1 and S2 present Abdomen: Soft, nontender. No guarding, no rebound, no masses Extremities: Normal range of motion, Distal pulses present SKIN: Warm, Dry, normal turgor Neurologic: Cranial nerves II through XII grossly intact. Normal speech Moderate Sedation - Procedure Monitoring Vital Signs: Procedure Monitoring Vital Signs Temperature 97.8 F 02/10/19 18:28 Pulse Rate 113 H 02/10/19 18:28 Respiratory Rate 17 02/10/19 18:28 Blood Pressure 139/89 02/10/19 18:28 O2 Sat by Pulse Oximetry (%) 91 L 02/10/19 18:28 ED Treatment Course - LABORATORY CBC & Chemistry Diagram: 02/10/19 20:33 02/10/19 20:33 Medical Decision Making - Medical Decision Making 63yo F with PMH of pancreatic CA with lung metastasis, DVT/PE, DM, HTN presenting with pain on her left side. DDX including but not limited to pain from pleural fluid, metastasis, PTX, PNA, ACS Basic labs CXR Portable 4mg Morphine IV 02/10/19 20:[address] Molina who says the supplies for drainage is in central supply We will try to procure these supplies; if we are not able to drain the patient' s pleural fluid, Dr. Molina's PA's will be able to do so in the morning 02/10/19 20:26 Went down to central supply and was not able to find PleurX kit Plan for admission 02/10/19 21:[address] Garnett who accepted patient for admission under Dr. Marie 02/10/19 21:23 Patient resting in stretcher, pain is relieved with morphine EKG: rate 101, QTc 430, Sinus tachycardia, 02/10/19 22:01 Daughters can be reached at: [phone] ([facility]), ([facility]) 02/10/19 22:51 *DC/Admit/Observation/Transfer Diagnosis at time of Disposition: Cancer associated pain, Pleural effusion Dyspnea Qualifiers: Dyspnea type: shortness of breath Qualified Code(s): R06.02 - Shortness of breath - Discharge Dispostion Condition at time of disposition: Guarded Decision to Admit order: Yes - Referrals - Patient Instructions - Post Discharge Activity
--- NOTE | 2019-02-10 19:23 | PDOC ---
Attending Attestation - HPI HPI: 02/10/19 20:27 The patient is a 63 year old female, with a significant past medical history of DVT/PE, chronic SOB, hypertension, diabetes, pancreatic CA (with lung mets), who presents to the emergency department with, left quadrant abdominal pain at the site of her pigtail. As per patients daughter at bedside, she normally has an at home visiting nurse who drains her pigtail twice a week (Sunday and ) thus, relieving the pain. She notes the nurse did not come in today prompting her arrival to the ED. Family notes 400cc was drained 02/06/2019. She denies recent fevers, chills, headache or dizziness. She denies recent nausea, vomit, diarrhea or constipation. She denies recent dysuria, frequency, urgency or hematuria. She denies recent chest pain. Allergies: NKDA Past surgical history: Cholecystectomy and Pancreatic CA resection Primary Care Physician: Dr. Marie Thoracic Surgeon: Dr. Molina - Physicial Exam PE: 02/10/19 20:27 Agree with resident exam. <Irving Peterson - Last Filed: 02/10/19 20:36> - Resident Resident Name: Ashley Garcia - ED Attending Attestation I have performed the following: I have examined & evaluated the patient, The case was reviewed & discussed with the resident, I agree w/resident's findings & plan - Medical Decision Making 02/10/19 21:03 63-year-old female with a history of metastatic pancreatic cancer with left sided pleuritic chest pain requesting drainage of her recurring pleural effusion Unfortunately the drainage equipment for her Pleurx was not available Case discussed with thoracic surgery who recommends medical admission They will see the patient in the morning for follow-up Patient given morphine for pain management and is comfortable at this time <Linda Campos - Last Filed: 02/10/19 21:04> Attestations - Attestations 02/10/19 20:28 Documentation prepared by Irving Peterson, acting as medical physics researcher for Linda Campos DO. <Irving Peterson - Last Filed: 02/10/19 20:36>
[2019-02-10] MEDS ORDERED: morphine CARPU-JECT 4 MG/1 ML DISP.SYRIN IVPUSH ONE (19:55)
[2019-02-10] MEDS ORDERED: morphine SULFATE 4 MG/ML VIAL ONE (20:06)
[2019-02-10 20:43] LABS: BASO % 0.7 % (0-2.0); EOS % 2.1 % (0-4.5); HEMATOCRIT 35.3 % (32.4-45.2); HEMOGLOBIN 12.3 GM/dL (10.7-15.3); LYMPH % 25.2 % (8-40); MCH 30.7 pg (25.7-33.7); MCHC 34.8 g/dl (32.0-36.0); MEAN CELL VOLUME 88.3 fl (80-96); MEAN PLT VOLUME 7.9 fl (7.5-11.1); MONO % 5.7 % (3.8-10.2); NEUT % 66.3 % (42.8-82.8); PLATELET COUNT 134 K/MM3 (134-434); RDW 18.3 % (11.6-15.6); WHITE BLOOD COUNT 10.2 K/mm3 (4.0-10.0)
[2019-02-10 20:57] LABS: INR 1.26 (0.83-1.09); PROTHROMBIN TIME (PATIENT) 14.9 SEC (9.7-13.0)
[2019-02-10 21:00] LABS: ACTIVATED PTT 28.8 SECONDS (25.2-36.5)
[2019-02-10 21:07] LABS: ALBUMIN 2.7 g/dl (3.4-5.0); ALK PHOS 381 U/L (45-117); ANION GAP 8 MMOL/L (8-16); BILIRUBIN,TOTAL 0.6 mg/dL (0.2-1); BLOOD UREA NITROGEN 12 mg/dL (7-18); CALCIUM 8.2 mg/dL (8.5-10.1); CHLORIDE 102 mmol/L (98-107); CO2 25 mmol/L (21-32); CREATININE 0.6 mg/dL (0.55-1.3); GLUCOSE,RANDOM 122 mg/dL (74-106); POTASSIUM 4.9 mmol/L (3.5-5.1); SGOT/AST 31 U/L (15-37); SGPT/ALT 15 U/L (13-61); SODIUM 134 mmol/L (136-145); TOT PROT 6.3 g/dl (6.4-8.2)
[2019-02-11] MEDS ORDERED: morphine CARPU-JECT 4 MG/1 ML DISP.SYRIN IVPUSH ONE (01:02)
[2019-02-11] MEDS ORDERED: morphine SULFATE 4 MG/ML VIAL ONE (01:09)
[2019-02-11 04:13] VITALS: BMI 19.3
[2019-02-11] MEDS: metFORMIN HCL 500 MG TABLET (FP) PO SCH ×2 (06:50→16:40)
[2019-02-11] MEDS: oxyCODONE HCL 5 MG TABLET PO PRN ×3 (08:22→18:17)
[2019-02-11] MEDS: ACETAMINOPHEN 325 MG TABLET (FP) PO PRN ×3 (08:24→18:17)
--- NOTE | 2019-02-11 09:18 | HP ---
DATE OF ADMISSION: 02/10/2019 A 63-year-old female known to have pancreatic CA with lung metastases, presented to the emergency room with pain, left abdomen. Patient has a catheter pigtail in her left lung. The visiting nurse came to drain the lung. That is the reason patient was brought to the ER. She denies any fever, cough, chills; only her complaint is pain, left upper quadrant. This is nothing new. PHYSICAL EXAMINATION: General: This morning, I examined the patient. She is still complaining of some pain, gets better with the pain medication. Alert and talking. Vital Signs: BP 114/85, pulse 104, temperature 98, respirations 20. HEENT: Unremarkable. Neck: Supple. Lungs: Diminished breath sounds on the left side. Abdomen: Soft. The catheter is patent. Heart: Sounds normal. Legs: No edema. LABORATORY REPORTS: WBC 10, hemoglobin 12.3. Chemistry: Electrolytes are normal. Albumin 2.7. INR 1.26. IMPRESSION: Pancreatic cancer with lung metastases, pleural effusion. PLAN: Drain pleural effusion, thoracic surgery consult, continue pain medications. Bertin [id number]
[2019-02-11 09:30] LABS: ALBUMIN 2.4 g/dl (3.4-5.0); ALK PHOS 333 U/L (45-117); ANION GAP 7 MMOL/L (8-16); BILIRUBIN,TOTAL 0.6 mg/dL (0.2-1); BLOOD UREA NITROGEN 16 mg/dL (7-18); CALCIUM 8.2 mg/dL (8.5-10.1); CHLORIDE 103 mmol/L (98-107); CO2 26 mmol/L (21-32); CREATININE 0.5 mg/dL (0.55-1.3); GLUCOSE,RANDOM 90 mg/dL (74-106); POTASSIUM 4.1 mmol/L (3.5-5.1); SGOT/AST 20 U/L (15-37); SGPT/ALT 11 U/L (13-61); SODIUM 136 mmol/L (136-145); TOT PROT 5.4 g/dl (6.4-8.2)
[2019-02-11] MEDS: LIPASE/PROTEASE/AMYLASE 6,000 UNIT CAPSULE PO SCH ×3 (09:51→16:41)
[2019-02-11] MEDS: RAMIPRIL 5 MG CAPSULE (FP) PO SCH (09:52)
[2019-02-11] MEDS: RANITIDINE HCL 150 MG TABLET (FP) PO SCH (09:53)
[2019-02-11] MEDS: amLODIPine BESYLATE 5 MG TABLET (FP) PO SCH (09:53)
[2019-02-11] MEDS ORDERED: APIXABAN 5 MG TABLET PO SCH (10:00)
--- NOTE | 2019-02-11 10:42 | EKG ---
Test Reason : Blood Pressure : / mmHG Vent. Rate : 101 BPM Atrial Rate : 101 BPM P-R Int : 112 ms QRS Dur : 068 ms QT Int : 332 ms P-R-T Axes : 062 050 062 degrees QTc Int : 430 ms SINUS TACHYCARDIA SEPTAL INFARCT (CITED ON OR BEFORE 16-MAY-2016) ABNORMAL ECG Confirmed by Nishant Lombardo MD ([id number]) on 02/11/2019 10:42:00 AM Referred By: Confirmed By:Nishant Lombardo MD
[2019-02-11] MEDS ORDERED: APIXABAN 5 MG TABLET PO ONE (13:15)
--- NOTE | 2019-02-11 20:08 | PN ---
Progress Note (short form) - Note Progress Note: Thoracic Surgery: Pt seen/examined. Well known to me. h/o pancreatic cancer and pleural/ pericardial effusion s/p window and pleur-x placement. VNS did not come Sunday. Pt had worsening pleuritic pain. Resolved with drainage today. OK to dc if pain controlled tomorrow and would get drainage by VNS.
[2019-02-12] MEDS: oxyCODONE HCL 5 MG TABLET PO PRN ×5 (02:53→23:13)
[2019-02-12] MEDS: ACETAMINOPHEN 325 MG TABLET (FP) PO PRN ×5 (02:59→23:13)
[2019-02-12] MEDS: metFORMIN HCL 500 MG TABLET (FP) PO SCH ×2 (06:23→16:37)
[2019-02-12 07:13] LABS: BASO % 0.6 % (0-2.0); HEMATOCRIT 31.3 % (32.4-45.2); HEMOGLOBIN 10.7 GM/dL (10.7-15.3); LYMPH % 19.5 % (8-40); MCH 30.2 pg (25.7-33.7); MCHC 34.2 g/dl (32.0-36.0); MEAN CELL VOLUME 88.1 fl (80-96); MEAN PLT VOLUME 7.7 fl (7.5-11.1); NEUT % 69.9 % (42.8-82.8); PLATELET COUNT 100 K/MM3 (134-434); RBC 3.55 M/mm3 (3.60-5.2); WHITE BLOOD COUNT 7.4 K/mm3 (4.0-10.0)
[2019-02-12] MEDS: LIPASE/PROTEASE/AMYLASE 6,000 UNIT CAPSULE PO SCH ×3 (08:57→16:37)
[2019-02-12] MEDS: RANITIDINE HCL 150 MG TABLET (FP) PO SCH (09:00)
[2019-02-12] MEDS: RAMIPRIL 5 MG CAPSULE (FP) PO SCH (09:00)
[2019-02-12] MEDS: amLODIPine BESYLATE 5 MG TABLET (FP) PO SCH (09:00)
[2019-02-12] MEDS ORDERED: APIXABAN 5 MG TABLET PO ONE (18:00)
[2019-02-13] MEDS ORDERED: MORPHINE SULFATE 2 MG/ML VIAL IVPUSH ONE (01:34)
[2019-02-13] MEDS: metFORMIN HCL 500 MG TABLET (FP) PO SCH (06:10)
--- NOTE | 2019-02-13 09:15 | PN ---
Progress Note, Physician - Current Medication List Current Medications: Active Medications Acetaminophen (Tylenol -) 325 mg PO Q4H PRN PRN Reason: PAIN LEVEL 1 - 6 Stop: 02/14/19 06:25 Last Admin: 02/12/19 23:13 Dose: 325 mg Amlodipine Besylate (Norvasc -) 5 mg PO DAILY [facility] Last Admin: 02/12/19 09:00 Dose: 5 mg Metformin HCl (Glucophage -) 500 mg PO BIDAC [facility] Last Admin: 02/13/19 06:10 Dose: 500 mg Oxycodone HCl (Roxicodone -) 5 mg PO Q4H PRN PRN Reason: PAIN LEVEL 1 - 6 Last Admin: 02/12/19 23:13 Dose: 5 mg Pancrelipase (Creon Dr 6,000 Units Capsule) 2 cap PO TIDCM [facility] Last Admin: 02/12/19 16:37 Dose: 2 cap Ramipril (Altace -) 5 mg PO DAILY [facility] Last Admin: 02/12/19 09:00 Dose: 5 mg Ranitidine HCl (Zantac -) 150 mg PO DAILY [facility] Last Admin: 02/12/19 09:00 Dose: 150 mg - Objective Vital Signs: Vital Signs Temperature 97.6 F 02/13/19 06:01 Pulse Rate 89 02/13/19 06:01 Respiratory Rate 20 02/13/19 06:01 Blood Pressure 130/77 02/13/19 06:01 O2 Sat by Pulse Oximetry (%) 100 02/12/19 20:56 Labs: CBC, BMP 02/12/19 06:08 02/11/19 08:25 INR, PTT INR 1.26 (0.83-1.09) H 02/10/19 20:33
--- NOTE | 2019-02-13 09:18 | PN ---
Progress Note, Physician Chief Complaint: Pt. feels better History of Present Illness: Will aspirate pleural effusion again today - Current Medication List Current Medications: Active Medications Acetaminophen (Tylenol -) 325 mg PO Q4H PRN PRN Reason: PAIN LEVEL 1 - 6 Stop: 02/14/19 06:25 Last Admin: 02/12/19 23:13 Dose: 325 mg Amlodipine Besylate (Norvasc -) 5 mg PO DAILY [facility] Last Admin: 02/12/19 09:00 Dose: 5 mg Metformin HCl (Glucophage -) 500 mg PO BIDAC [facility] Last Admin: 02/13/19 06:10 Dose: 500 mg Oxycodone HCl (Roxicodone -) 5 mg PO Q4H PRN PRN Reason: PAIN LEVEL 1 - 6 Last Admin: 02/12/19 23:13 Dose: 5 mg Pancrelipase (Creon Dr 6,000 Units Capsule) 2 cap PO TIDCM [facility] Last Admin: 02/12/19 16:37 Dose: 2 cap Ramipril (Altace -) 5 mg PO DAILY [facility] Last Admin: 02/12/19 09:00 Dose: 5 mg Ranitidine HCl (Zantac -) 150 mg PO DAILY [facility] Last Admin: 02/12/19 09:00 Dose: 150 mg - Objective Vital Signs: Vital Signs Temperature 97.6 F 02/13/19 06:01 Pulse Rate 89 02/13/19 06:01 Respiratory Rate 20 02/13/19 06:01 Blood Pressure 130/77 02/13/19 06:01 O2 Sat by Pulse Oximetry (%) 100 02/12/19 20:56 Constitutional: Yes: Calm Eyes: Yes: WNL HENT: Yes: WNL Cardiovascular: Yes: WNL Respiratory: Yes: SOB (L pleural effusion) Neurological: Yes: Alert Labs: CBC, BMP 02/12/19 06:08 02/11/19 08:25 INR, PTT INR 1.26 (0.83-1.09) H 02/10/19 20:33 Assessment/Plan After aspirating fluid from Lt lung will d/c home
[2019-02-13] MEDS ORDERED: PT OWN MED DRAWER 7, Y5N ONE (09:48)
[2019-02-13] MEDS: ACETAMINOPHEN 325 MG TABLET (FP) PO PRN (09:50)
[2019-02-13] MEDS: amLODIPine BESYLATE 5 MG TABLET (FP) PO SCH (09:51)
[2019-02-13] MEDS: oxyCODONE HCL 5 MG TABLET PO PRN (09:51)
[2019-02-13] MEDS: LIPASE/PROTEASE/AMYLASE 6,000 UNIT CAPSULE PO SCH ×2 (09:51→12:49)
[2019-02-13] MEDS: RANITIDINE HCL 150 MG TABLET (FP) PO SCH (09:51)
[2019-02-13] MEDS: RAMIPRIL 5 MG CAPSULE (FP) PO SCH (09:53)
[2019-02-13] MEDS ORDERED: HYDROmorphone HCL 2 MG TABLET PO ONE (13:30)
[2019-02-13 13:32] VITALS: BP 122/81; PULSE 102; TEMP 98.1
== END 2019-02-13 14:35 | disposition home or self-care (01) | DRG 143 ==
LOC: JER 18:07 → JERBED 21:22 → J7W 02-11 03:31
PROVIDERS: ADMIT Internal Medicine; ATTEND Internal Medicine
PROC: 0W9B30Z Drainage of Left Pleural Cavity with Drainage Device, Percutaneous Approach (ICD-10-PCS; principal; 2019-02-11)
DX: J90 Pleural effusion, not elsewhere classified (principal); C25.9 Malignant neoplasm of pancreas, unspecified; C78.00 Secondary malignant neoplasm of unspecified lung; E11.9 Type 2 diabetes mellitus without complications; R00.0 Tachycardia, unspecified; G89.3 Neoplasm related pain (acute) (chronic); I10 Essential (primary) hypertension; Z86.718 Personal history of other venous thrombosis and embolism; Z86.711 Personal history of pulmonary embolism
CPT/HCPCS: 36415; 71045-TC-FY; 71046-TC-FY; 80053; 82962; 85025; 85610; 85730; 93005; 93010; 99282-25

== ENCOUNTER 2019-02-27 17:42 | Inpatient (IN) | payer OTHER ==
[2019-02-27] MEDS ORDERED: ALBUTEROL SO4 2.5/IPRATROPIUM 0.5 INH SOL 3 ML VIAL.NEB. NEB ONE (18:41)
--- NOTE | 2019-02-27 18:49 | PDOC ---
History of Present Illness - General Chief Complaint: Shortness of Breath Stated Complaint: DIFF. BREATHING - History of Present Illness Initial Comments: Kathrine Arndt is a 63yo woman with a PMH of metastatic pancreatic CA no longer on treatment, L pleural effusion w/ PleurX catheter (500cc removed on Sunday), HTN, HLD, DVT on Eliquis who presents with acute worsening of SOB today. She and her family report that she has chronic SOB and is on 2.5L of oxygen at home, but today her difficulty breathing worsened acutely after she walked to the bathroom this afternoon. She says that she feels she is suffocating. Otherwise her health has been unchanged recently. She has a known pleural effusion that is generally drained Sun and , but the drainage was not completed today. On sunday, 500cc was removed from the left lung. She has been eating very poorly with recent weight loss. Her family is not aware of any nausea, vomiting, abdominal pain, change in bowel habits, recent fever or chills. She does not have any known sick contacts. She has been following up as scheduled with her regular doctors, but her daughter states that every time she is supposed have her cancer treated she is sick. Past History - Past Medical History Allergies/Adverse Reactions: Allergies Allergy/AdvReac Type Severity Reaction Status Date / Time No Known Allergies Allergy Verified 02/27/19 19:43 Home Medications: Ambulatory Orders Ramipril [Altace] 5 mg PO DAILY 05/16/16 Amlodipine Besylate [Norvasc -] 5 mg PO DAILY 11/28/18 Ranitidine [Zantac -] 150 mg PO DAILY 11/28/18 metFORMIN HCL [Metformin HCl] 500 mg PO BID 11/28/18 Apixaban [Eliquis] 5 mg PO DAILY 02/10/19 Lipase/Protease/Amylase [Creon Dr 6,000 Units Capsule] 2 cap PO TIDCM 02/10/19 Oxycodone HCl/Acetaminophen [Percocet 5-325 mg Tablet] 1 tab PO Q4H 02/10/19 Asthma: No Cancer: Yes (PANCREATIC w/mets to lungs/liver) Cardiac Disorders: No CVA: No COPD: No CHF: No Diabetes: Yes HTN: Yes Hypercholesterolemia: No Seizures: No Lung CA: Yes - Surgical History Cholecystectomy: Yes GI Surgery: Yes (pancreatic mass removed) - Immunization History Immunization Up to Date: Yes - Suicide/Smoking/Psychosocial Hx Smoking History: Never smoked Have you smoked in the past 12 months: No Information on smoking cessation initiated: No Hx Alcohol Use: No Drug/Substance Use Hx: No Substance Use Type: None Review of Systems - Review of Systems Comments:: General: + chills, +poor appetite, no malaise HEENT: No changes in vision, no changes in hearing, no congestion, no sore throat CV: No chest pain, + palpitations, no LE edema Pulm: See HPI GI: No nausea or vomiting, no change in bowel habits, no melena : No frequency, no urgency, no dysuria Musc: +back pain, no joint swelling, no recent injury Skin: No rash, no lesions, no erythema Endo: No excessive thirst, no heat/cold intolerance Heme: No unusual bruising or bleeding, no swollen glands Neuro: No syncope, no numbness/tingling, no focal weakness Vasc: No claudication. fully anticoagulated Psych: No recent change in mood, no SI or HI *Physical Exam - Vital Signs Last Vital Signs Temp Pulse Resp BP Pulse Ox 96.3 F L 136 H 28 H 133/80 100 02/27/19 18:40 02/27/19 18:40 02/27/19 18:40 02/27/19 18:40 02/27/19 18:40 - Physical Exam Comments: General: Uncomfortable, moderate distress HEENT: PERRL, EOMI, very dry mouth, no LAD, very soft voice Cards: Tachycardic, palpable, no murmur appreciated Pulm:Tachypnic, labored breathing, diffuse wheezing. PleurX in place w/ clean dressing Abd: Soft, nontender, nondistended Ext: Atraumatic. No LE edema. Vasc: Extremities WWP Skin: Normal color, no rashes or lesions. Warm to touch Neuro: A&Ox3, CN grossly intact, motor/sensory grossly intact and symmetric Psych: Mood appropriate to situation ED Treatment Course - LABORATORY CBC & Chemistry Diagram: 02/27/19 19:23 02/27/19 19:23 - RADIOLOGY Radiology Studies Ordered: Category Date Time Status CHEST X-RAY PORTABLE* [RAD] Stat Radiology 02/27/19 18:35 Ordered Medical Decision Making - Medical Decision Making 02/27/19 18:48 Kathrine Arndt is a 63yo woman with a PMH of metastatic pancreatic CA no longer on treatment, L pleural effusion w/ PleurX catheter (500cc removed on Sunday), HTN, HLD, on Eliquis who presents with acute worsening of SOB today. - Suspect known effusion, but feels warm to touch and tachycardic with diffuse wheezing. Could have pneumonia, influenza, pleural effusion. Possible PE but has been taking apixaban; may evaluate if remainder of workup negative - Need rectal temp - Septic workup ordered - Bedside US completed. b/l pleural effusions, air bronchograms suggesting pneumonia, trace cardiac effusion, hyperdynamic LV, collapsable IVC - Appears dehydrated, likely pneumonia - 1L bolus, vanc, zosyn 02/27/19 21:20 - Labs reviewed. WBC 15.6. Lactate 2.7. - Chemistry hemolized. Will attempt to re-draw after rehydration - CXR with worsening left pleural effusion, complete white-out of left lung field. Possible RUL pneumonia as well. Read states NG tube; actually pleurX catheter. Per family, was scheduled to have fluid drained today (Sunday and ). - Still tachycardic at 126/min but appears more comfortable. Sats 98% with NC. 02/27/19 23:32 - Spoke to Dr Marie. Will admit for additional management. - 2mg morphine for pleuritic/back pain. - CT chest w/o contrast ordered for evaluation of pneumonia - Lab agreed to run BUN, Cr, glucose from previous hemolized sample. Have not been able to draw new labs - Will order 2nd liter IVF to follow initial, pt unable to tolerate bolus, states it is too cold. Will order repeat chemistry to follow fluid Seen with Dr Miranda. Lisette Flower PGY1 *DC/Admit/Observation/Transfer Diagnosis at time of Disposition: Pneumonia, Pericardial effusion, Sepsis - Discharge Dispostion Decision to Admit order: Yes - Referrals - Patient Instructions - Post Discharge Activity
--- NOTE | 2019-02-27 19:53 | PDOC ---
Attending Attestation - Resident Resident Name: MundoLisette - ED Attending Attestation I have performed the following: I have examined & evaluated the patient, The case was reviewed & discussed with the resident, I agree w/resident's findings & plan, Exceptions are as noted - Physicial Exam PE: 02/27/19 19:47 awake alert tachypneic,lung with bilat exp wheezes at bases. decreased at bases. crackles on left. plueral drain in tact on left. dressing in place. heart reg tachycardia. abd soft mild epigastric ttp. no rebound no guarding. midline scar. ext wwp no edema. no calf tenderness. skin warm and dry no rash. - Medical Decision Making 02/27/19 19:48 63 yo F h/o pancreatic ca, and lung mets/ ca, plueral effusion left sided drain and recently diagnosed leg dvt on eliquis, here with worsening sob, decreased po intake. no n/v . no urinary complaints. c/o worsening sob, mild cough. sob worse with lying flat. oncologist dr ayesha jon pcp dr marie. on exam pt tachypneic, with crackles and wheezes bilat tachyardic 140's focused ED ultrasound thorax bilat pleural effusions, air bronchograms at bases focused ED TTE indication sob tachycardia parasternal subxiphoid and apical views obtained no rv dilation or strain pattern LV hyperdynamic, fregoso touching. small pericardial effusio noted. large plueral effusion noted. IVC collapses > 50% impression: hyperdynamic LV, small pericardial effusion, large plueral effusion , ivc collapsable. plan cxr labs septic workup. pt differential includes dehydration sepsis from pneumonia, uti, worsening progression of cancer, renal failure hyponatremia anemia. plan labs cxr iv hydration. will require admission. abx broad spectrum for sepsis. <Shiela Miranda - Last Filed: 02/27/19 19:47> - HPI HPI: 02/27/19 20:02 The patient is a 63-year-old female with past medical history significant for Metastatic Pancreases CA (off treatment for a year, with mets to lung), DVT ( left lower extremity, on Eliquis), HTN, HLD, chronic SOB,malignant pleural and pericardial effusions s/p vats and pericardial window 11/2018 on home o2 presents to the emergency department with shortness of breath. The patient reports she was walking to the bathroom, when she had an acute episode of more shortness of breath. The patient reports she was recently dx with DVT and was started on Eliquis. Allergies: NKA PCP: Dr. Alcon Marie Oncologist: Dr. Ko (@ [facility]) - Medical Decision Making 02/27/19 20:02 Documentation prepared by Jaimee Wells, acting as biomedical photographer for Shiela Miranda MD. <Jaimee Wells - Last Filed: 02/27/19 20:02> Heart Score/ECG Review #1 General ECG Interpretation: Sinus Rhythm, Normal Rate, Normal Intervals, No acute ischemic changes Compared to previous ECG there are: Other (sinus tachycardia 140) <Shiela Miranda - Last Filed: 02/27/19 19:47>
[2019-02-27 19:57] LABS: BASO % 0.2 % (0-2.0); HEMATOCRIT 34.1 % (32.4-45.2); LYMPH % 4.1 % (8-40); MCH 29.2 pg (25.7-33.7); MCHC 32.2 g/dl (32.0-36.0); MEAN CELL VOLUME 90.5 fl (80-96); MEAN PLT VOLUME 9.3 fl (7.5-11.1); MONO % 1.9 % (3.8-10.2); NEUT % 93.8 % (42.8-82.8); PLATELET COUNT 65 K/MM3 (134-434); RBC 3.77 M/mm3 (3.60-5.2); RDW 17.4 % (11.6-15.6); WHITE BLOOD COUNT 15.6 K/mm3 (4.0-10.0)
[2019-02-27 20:01] LABS: VENOUS PC02 41.2 mmHg (41-51); VENOUS PH 7.35 (7.31-7.41); VENOUS PO2 40.3 mmHg (30-40)
[2019-02-27 20:09] LABS: EPI CELLS 2.9 /HPF (0-5); URINE APPEARANCE CLEAR; URINE BACTERIA 20.3 /hpf (NEGATIVE); URINE BILIRUBIN NEGATIVE (NEGATIVE); URINE CASTS 6 /hpf (0-8); URINE COLOR YELLOW; URINE GLUCOSE (UA) NEGATIVE (NEGATIVE); URINE KETONE TRACE (NEGATIVE); URINE LEUK ESTERASE 1+ (NEGATIVE); URINE NITRITE NEGATIVE (NEGATIVE); URINE PROTEIN TRACE (NEGATIVE); URINE RBC 3 /hpf (0-4); URINE WBC 5 /hpf (0-5)
[2019-02-27 21:03] LABS: ANISOCYTOSIS 2+; MACROCYTOSIS 2+; OVALOCYTE 1+
[2019-02-27 21:04] LABS: PLATELET ESTIMATE DECREASED
[2019-02-27] MEDS ORDERED: SODIUM CHLORIDE 0.9% 500 ML INFUS.BAG IV ONE ×2 (21:06→23:40)
[2019-02-27] MEDS ORDERED: PIPERACILLIN/TAZOB 3.375 GM 3.375 GM in DEXTROSE 5%-WATER - 50 ML IVPB ONE (21:06)
[2019-02-27] MEDS ORDERED: VANCOMYCIN 1 GM in D5W (PRE-DOCKED) 1,000 MG/250 ML IVPB ONE (21:06)
[2019-02-27] MEDS ORDERED: VANCOMYCIN 1 GRAM (PRE-DOCKED) 1,000 MG/250 ML BAG IVPB ONE (21:18)
[2019-02-27] MEDS ORDERED: PIPERACILLIN/TAZOB 3.375 GM 3.375 GM/50 ML BAG IVPB ONE (21:18)
[2019-02-27] MEDS ORDERED: morphine CARPU-JECT 2 MG/1 ML DISP.SYRIN IVPUSH ONE (23:08)
[2019-02-27] MEDS ORDERED: MORPHINE SULFATE 2 MG/ML VIAL ONE (23:13)
[2019-02-28] MEDS ORDERED: morphine CARPU-JECT 4 MG/1 ML DISP.SYRIN IVPUSH ONE (00:51)
[2019-02-28] MEDS ORDERED: MORPHINE SULFATE 2 MG/ML VIAL ONE ×2 (01:02→06:33)
--- NOTE | 2019-02-28 01:09 | PDOC ---
*Physical Exam - Vital Signs Last Vital Signs Temp Pulse Resp BP Pulse Ox 96.3 F L 136 H 28 H 133/80 100 02/27/19 18:40 02/27/19 18:40 02/27/19 18:40 02/27/19 18:40 02/27/19 18:40 ED Treatment Course - LABORATORY CBC & Chemistry Diagram: 02/27/19 19:23 02/27/19 19:23 - ADDITIONAL ORDERS Additional order review: Laboratory Results 02/27/19 02/27/19 02/27/19 19:45 19:23 19:23 PT with INR INR PTT (Actin FS) VBG pH POC VBG pCO2 POC VBG pO2 VBG HCO3 VBG O2 Sat (Harriet) VBG Base Excess Sodium Potassium Chloride Carbon Dioxide Anion Gap BUN Creatinine Creat Clearance w eGFR Random Glucose Lactic Acid 2.7 H* Calcium Total Bilirubin AST ALT Alkaline Phosphatase Troponin I < 0.02 Total Protein Albumin Urine Color Yellow Urine Appearance Clear Urine pH 5.0 Ur Specific Henrietta 1.019 Urine Protein Trace Urine Glucose (UA) Negative Urine Ketones Trace H Urine Blood Negative Urine Nitrite Negative Urine Bilirubin Negative Urine Urobilinogen 1.0 Ur Leukocyte Esterase 1+ H Urine WBC (Auto) 5 Urine RBC (Auto) 3 Urine Casts (Auto) 6 U Epithel Cells (Auto) 2.9 Urine Bacteria (Auto) 20.3 02/27/19 02/27/19 02/27/19 19:23 19:23 19:23 PT with INR Cancelled INR Cancelled PTT (Actin FS) Cancelled VBG pH 7.35 POC VBG pCO2 41.2 POC VBG pO2 40.3 H VBG HCO3 22.1 L VBG O2 Sat (Harriet) 67.0 L VBG Base Excess -2.8 L Sodium Cancelled Potassium Cancelled Chloride Cancelled Carbon Dioxide Cancelled Anion Gap Cancelled BUN Cancelled Creatinine Cancelled Creat Clearance w eGFR Cancelled Random Glucose Cancelled Lactic Acid Calcium Cancelled Total Bilirubin Cancelled AST Cancelled ALT Cancelled Alkaline Phosphatase Cancelled Troponin I Total Protein Cancelled Albumin Cancelled Urine Color Urine Appearance Urine pH Ur Specific Henrietta Urine Protein Urine Glucose (UA) Urine Ketones Urine Blood Urine Nitrite Urine Bilirubin Urine Urobilinogen Ur Leukocyte Esterase Urine WBC (Auto) Urine RBC (Auto) Urine Casts (Auto) U Epithel Cells (Auto) Urine Bacteria (Auto) 02/27/19 19:23 RBC 3.77 MCV 90.5 MCHC 32.2 RDW 17.4 H MPV 9.3 D Neutrophils % 93.8 H D Lymphocytes % 4.1 L D Monocytes % 1.9 L Eosinophils % 0.0 D Basophils % 0.2 - Medications Given in the ED: ED Medications Discontinued Medications Generic Name Dose Route Start Last Admin Trade Name Eyad PRN Reason Stop Dose Admin Piperacillin Sod/Tazobactam 50 mls @ 100 mls/hr 02/27/19 21:06 02/27/19 21:51 Sod 3.375 gm/ Dextrose IVPB 02/27/19 21:35 100 mls/hr ONCE ONE Administration Protocol Morphine Sulfate 2 mg 02/27/19 23:08 02/27/19 23:29 Morphine Injection - IVPUSH 02/27/19 23:09 2 mg ONCE ONE Administration Sodium Chloride 1,000 ml 02/27/19 21:06 02/27/19 21:51 Normal Saline - IV 02/27/19 21:07 1,000 ml ONCE ONE Administration Vancomycin HCl 1,000 mg 02/27/19 21:06 02/27/19 22:57 Vancomycin (Pre-Docked) IVPB 02/27/19 21:07 1,000 mg ONCE ONE Administration Protocol Medical Decision Making - Medical Decision Making 02/28/19 01:[address] Marie, who is unable to place admission orders. Per our conversation, patient will go to [facility]. Microblog sent to [facility] for admission. 02/28/19 02:40 I spoke with Venkata Lima; in agreement on admission plan. Decision to Admit order corrected with Dr. Dixon's name. *DC/Admit/Observation/Transfer Diagnosis at time of Disposition: Pneumonia, Pericardial effusion, Sepsis - Discharge Dispostion Condition at time of disposition: Guarded Decision to Admit order: Yes - Referrals - Patient Instructions - Post Discharge Activity
--- NOTE | 2019-02-28 01:33 | PN ---
Teaching Attending Note Name of Resident: Venkata Lima ATTENDING PHYSICIAN STATEMENT I saw and evaluated the patient. I reviewed the resident's note and discussed the case with the resident. I agree with the resident's findings and plan as documented. SUBJECTIVE: Kathrine Arndt is a 63yo woman with a PMH of metastatic pancreatic CA with lung/liver mets (no longer on treatment), NIDDM, left pleural effusion w/ PleurX catheter (500cc removed on Sunday), HTN, HLD, DVT on who presents with acute worsening of SOB today. She and her family report that she has chronic SOB and is on 2.5L of oxygen at home, but today her difficulty breathing worsened acutely after she walked to the bathroom this afternoon. She says that she feels she is suffocating. Otherwise her health has been unchanged recently. She has a known pleural effusion that is generally drained Sun and , but the drainage was not completed today. On sunday, 500cc was removed from the left lung. She has been eating very poorly with recent weight loss. Her family is not aware of any nausea, vomiting, abdominal pain, change in bowel habits, recent fever or chills. She does not have any known sick contacts. She has been following up as scheduled with her regular doctors, but her daughter states that every time she is supposed have her cancer treated she is sick. OBJECTIVE: Alert Vital Signs Period Temp Pulse Resp BP Sys/Venegas Pulse Ox Last 24 Hr 96.3 F 130-136 24-28 133-133/80-80 92-100 HEENT: No Jaundice, eye redness or discharge, PERRLA, EOMI. Normocephalic, atraumatic. External ears are normal and hearing is grossly intact. No nasal discharge. Neck: Supple, nontender. No palpable adenopathy or thyromegaly. No JVD Chest: Good effort. PleurX catheter in place in left chest walll. Diminished breath sounds. Heart: Regular. No S3, rub or murmur Abdomen: Not distended, soft, nontender and no HSM. No rebound or guarding. Normal bowel sounds. Ext: Peripheral pulses intact. No leg edema. Skin: Warm and dry. No petechiae, rash or ecchymosis. Neuro: Alert. Oriented x3. CN 2-12 grossly intact. Sensation grossly intact in all four extremities and DTR are symmetric. Psych: Appropriate mood and affect. Good insight. Home Medications Medication Instructions Recorded Ramipril [Altace] 5 mg PO DAILY 05/16/16 Amlodipine Besylate [Norvasc -] 5 mg PO DAILY 11/28/18 Ranitidine [Zantac -] 150 mg PO DAILY 11/28/18 metFORMIN HCL [Metformin HCl] 500 mg PO BID 11/28/18 Apixaban [Eliquis] 5 mg PO DAILY 02/10/19 Lipase/Protease/Amylase [Creon Dr 2 cap PO TIDCM 02/10/19 6,000 Units Capsule] Oxycodone HCl/Acetaminophen 1 tab PO Q4H 02/10/19 [Percocet 5-325 mg Tablet] Abnormal Lab Results 02/27/19 02/27/19 02/27/19 19:23 19:23 19:23 WBC 15.6 H RDW 17.4 H Plt Count 65 L D Absolute Neuts (auto) 14.6 H Neutrophils % 93.8 H D Neutrophils % (Manual) 90.0 H Lymphocytes % 4.1 L D Lymphocytes % (Manual) 3.0 L Monocytes % 1.9 L Monocytes % (Manual) 2 L POC VBG pO2 40.3 H VBG HCO3 22.1 L VBG O2 Sat (Harriet) 67.0 L VBG Base Excess -2.8 L Carbon Dioxide BUN Random Glucose Lactic Acid 2.7 H* Calcium ALT Alkaline Phosphatase Total Protein Albumin Urine Ketones Ur Leukocyte Esterase 02/27/19 02/28/19 02/28/19 19:45 02:58 02:58 WBC RDW Plt Count Absolute Neuts (auto) Neutrophils % Neutrophils % (Manual) Lymphocytes % Lymphocytes % (Manual) Monocytes % Monocytes % (Manual) POC VBG pO2 VBG HCO3 VBG O2 Sat (Harriet) VBG Base Excess Carbon Dioxide BUN 24 H Random Glucose 251 H Lactic Acid 3.5 H* Calcium ALT Alkaline Phosphatase Total Protein Albumin Urine Ketones Trace H Ur Leukocyte Esterase 1+ H 02/28/19 02:58 WBC RDW Plt Count Absolute Neuts (auto) Neutrophils % Neutrophils % (Manual) Lymphocytes % Lymphocytes % (Manual) Monocytes % Monocytes % (Manual) POC VBG pO2 VBG HCO3 VBG O2 Sat (Harriet) VBG Base Excess Carbon Dioxide 20 L BUN 24 H Random Glucose 245 H Lactic Acid Calcium 6.9 L* ALT 10 L Alkaline Phosphatase 396 H Total Protein 5.4 L Albumin 2.2 L Urine Ketones Ur Leukocyte Esterase ASSESSMENT AND PLAN: 1. Sepsis due to HCAP/Malignant effusion - CXR shows opacified left lung and diffuse right lung infiltrate. Chest CT result pending. Will treat with IV Vancomycin and Zosyn. For drainage of left lung pleural effusion tomorrow. Continue IV NS, trend lactic acid and continue oxygen support. EKG shows sinus tachycardia with no significant ST-T wave changes. Hold metformin. Consult ID and Pulmonary. Continue comprehensive care of metastatic pancreatic cancer. Provide generous emotional support and use IV morphine for pain control. 2. Hypoalbuminemia - Possibly due to combined effects of malnutrition and inflammation associated with comorbid chronic conditions. Will ensure adequate dietary protein intake of at least 1.5 gm/Kg body weight per day and also consult reference archivist. 3. Uncontrolled DM For now, we will hold the home diabetes drugs and implement sliding scale insulin regimen. Provide comprehensive diabetes care with patient teaching and counseling about the importance of adherence to prescribed diabetes regimen, euglycemia, eye care and foot care. 4. DVT prophylaxis - On Eliquis for DVT 5. Advance directives - Full code
--- NOTE | 2019-02-28 01:34 | HP ---
CHIEF COMPLAINT: SOB PCP: DR Marie ,Oncologist: Dr. Ko (@ [facility]) HISTORY OF PRESENT ILLNESS: The patient is a 63-year-old female with past medical history significant for Metastatic Pancreases CA (off treatment for a year, with mets to lung), DVT ( left lower extremity, on Eliquis), HTN, HLD, chronic SOB,malignant pleural and pericardial effusions s/p vats and pericardial window 11/2018 on home o2 presents to the emergency department with shortness of breath started around 3.[address] to bath room associated with pale black nails and chills. The patient reports she was recently dx with DVT and was started on Eliquis. pt repoets cough with yeloow , white sputum with streak of blood last few days . she reports chronic back pain lasy chemo radiation treatment about one year ago (10 months ) , last oncologist vsiit 2 months ago as she always end up in hospital before Dr visit . pt reports sore throat and loss of appetite , she reports weight loss of 7 pound within one week ER course was notable for: (1)cxr with left side pleural effusion (2)chest CT with (3) Recent Travel:denies PAST MEDICAL HISTORY: HTN , DM , Pancreatic cancer with mets to liver and lung, DVT left leg on eliquis PAST SURGICAL HISTORY: chest tube , pleuro-x , cholecystectomy, pancreas surgery Social History: Smoking:denies Alcohol:denies Drugs: denies Family History:DM Allergies No Known Allergies Allergy (Verified 02/27/19 19:43) HOME MEDICATIONS: Home Medications Medication Instructions Recorded Ramipril [Altace] 5 mg PO DAILY 05/16/16 Amlodipine Besylate [Norvasc -] 5 mg PO DAILY 11/28/18 Ranitidine [Zantac -] 150 mg PO DAILY 11/28/18 metFORMIN HCL [Metformin HCl] 500 mg PO BID 11/28/18 Apixaban [Eliquis] 5 mg PO DAILY 02/10/19 Lipase/Protease/Amylase [Jacklyn Walsh 2 cap PO TIDCM 02/10/19 6,000 Units Capsule] Oxycodone HCl/Acetaminophen 1 tab PO Q4H 02/10/19 [Percocet 5-325 mg Tablet] REVIEW OF SYSTEMS CONSTITUTIONAL: Absent: fever, chills, diaphoresis, generalized weakness, malaise, loss of appetite, weight change HEENT: Absent: rhinorrhea, nasal congestion, throat pain, throat swelling, difficulty swallowing, mouth swelling, ear pain, eye pain, visual changes CARDIOVASCULAR: Absent: chest pain, syncope, palpitations, irregular heart rate, lightheadedness , peripheral edema RESPIRATORY: Absent: cough, shortness of breath, dyspnea with exertion, orthopnea, wheezing, stridor, hemoptysis GASTROINTESTINAL: Absent: abdominal pain, abdominal distension, nausea, vomiting, diarrhea, constipation, melena, hematochezia GENITOURINARY: Absent: dysuria, frequency, urgency, hesitancy, hematuria, flank pain, genital pain MUSCULOSKELETAL: Absent: myalgia, arthralgia, joint swelling, back pain, neck pain SKIN: Absent: rash, itching, pallor HEMATOLOGIC/IMMUNOLOGIC: Absent: easy bleeding, easy bruising, lymphadenopathy, frequent infections ENDOCRINE: Absent: unexplained weight gain, unexplained weight loss, heat intolerance, cold intolerance NEUROLOGIC: Absent: headache, focal weakness or paresthesias, dizziness, unsteady gait, seizure, mental status changes, bladder or bowel incontinence PSYCHIATRIC: Absent: anxiety, depression, suicidal or homicidal ideation, hallucinations. PHYSICAL EXAMINATION Vital Signs - 24 hr 02/27/19 02/27/19 17:45 18:40 Temperature 96.3 F L Pulse Rate 130 H Pulse Rate [ 136 H Right Radial] Respiratory 24 H 28 H Rate Blood Pressure 133/80 Blood Pressure 133/80 [Left] O2 Sat by Pulse 92 L 100 Oximetry (%) GENERAL: AAOx3 in mild respiratory distress HEAD: NC/AT EYES: EOMI, Conjunctiva clear, ENT: dry mucous membrane NECK: Supple, no JVD LUNGS: decrease breath sound on the left side and right lung base HEART: sinus tachy @ 111 , normal s1, s2, no M/R/G ABDOMEN: Soft, ND, NT, +BS 4 Q, no CVA Tenderness LOWER EXTREMITIES: no edema, +2DP pulse, NEUROLOGICAL: No focal deficit. Normal speech. gait not observed. PSYCHIATRIC: Cooperative. SKIN: Warm, dry, Laboratory Results - last 24 hr 02/27/19 02/27/19 02/27/19 19:23 19:23 19:23 WBC 15.6 H RBC 3.77 Hgb 11.0 Hct 34.1 MCV 90.5 MCH 29.2 MCHC 32.2 RDW 17.4 H Plt Count 65 L D MPV 9.3 D Absolute Neuts (auto) 14.6 H Neutrophils % 93.8 H D Neutrophils % (Manual) 90.0 H Band Neutrophils % 5.0 Lymphocytes % 4.1 L D Lymphocytes % (Manual) 3.0 L Monocytes % 1.9 L Monocytes % (Manual) 2 L Eosinophils % 0.0 D Basophils % 0.2 Nucleated RBC % 0 Hypochromia 2+ Platelet Estimate Decreased Platelet Comment No clumping noted Anisocytosis 2+ Microcytosis 1+ Macrocytosis 2+ Ovalocytes 1+ PT with INR Cancelled INR Cancelled PTT (Actin FS) Cancelled VBG pH 7.35 POC VBG pCO2 41.2 POC VBG pO2 40.3 H VBG HCO3 22.1 L VBG O2 Sat (Harriet) 67.0 L VBG Base Excess -2.8 L Sodium Potassium Chloride Carbon Dioxide Anion Gap BUN Creatinine Creat Clearance w eGFR Random Glucose Lactic Acid Calcium Total Bilirubin AST ALT Alkaline Phosphatase Troponin I Total Protein Albumin Urine Color Urine Appearance Urine pH Ur Specific [place] Urine Protein Urine Glucose (UA) Urine Ketones Urine Blood Urine Nitrite Urine Bilirubin Urine Urobilinogen Ur Leukocyte Esterase Urine WBC (Auto) Urine RBC (Auto) Urine Casts (Auto) U Epithel Cells (Auto) Urine Bacteria (Auto) 02/27/19 02/27/19 02/27/19 19:23 19:23 19:23 WBC RBC Hgb Hct MCV MCH MCHC RDW Plt Count MPV Absolute Neuts (auto) Neutrophils % Neutrophils % (Manual) Band Neutrophils % Lymphocytes % Lymphocytes % (Manual) Monocytes % Monocytes % (Manual) Eosinophils % Basophils % Nucleated RBC % Hypochromia Platelet Estimate Platelet Comment Anisocytosis Microcytosis Macrocytosis Ovalocytes PT with INR INR PTT (Actin FS) VBG pH POC VBG pCO2 POC VBG pO2 VBG HCO3 VBG O2 Sat (Harriet) VBG Base Excess Sodium Cancelled Potassium Cancelled Chloride Cancelled Carbon Dioxide Cancelled Anion Gap Cancelled BUN Cancelled Creatinine Cancelled Creat Clearance w eGFR Cancelled Random Glucose Cancelled Lactic Acid 2.7 H* Calcium Cancelled Total Bilirubin Cancelled AST Cancelled ALT Cancelled Alkaline Phosphatase Cancelled Troponin I < 0.02 Total Protein Cancelled Albumin Cancelled Urine Color Urine Appearance Urine pH Ur Specific [place] Urine Protein Urine Glucose (UA) Urine Ketones Urine Blood Urine Nitrite Urine Bilirubin Urine Urobilinogen Ur Leukocyte Esterase Urine WBC (Auto) Urine RBC (Auto) Urine Casts (Auto) U Epithel Cells (Auto) Urine Bacteria (Auto) 02/27/19 19:45 WBC RBC Hgb Hct MCV MCH MCHC RDW Plt Count MPV Absolute Neuts (auto) Neutrophils % Neutrophils % (Manual) Band Neutrophils % Lymphocytes % Lymphocytes % (Manual) Monocytes % Monocytes % (Manual) Eosinophils % Basophils % Nucleated RBC % Hypochromia Platelet Estimate Platelet Comment Anisocytosis Microcytosis Macrocytosis Ovalocytes PT with INR INR PTT (Actin FS) VBG pH POC VBG pCO2 POC VBG pO2 VBG HCO3 VBG O2 Sat (Harriet) VBG Base Excess Sodium Potassium Chloride Carbon Dioxide Anion Gap BUN Creatinine Creat Clearance w eGFR Random Glucose Lactic Acid Calcium Total Bilirubin AST ALT Alkaline Phosphatase Troponin I Total Protein Albumin Urine Color Yellow Urine Appearance Clear Urine pH 5.0 Ur Specific [place] 1.019 Urine Protein Trace Urine Glucose (UA) Negative Urine Ketones Trace H Urine Blood Negative Urine Nitrite Negative Urine Bilirubin Negative Urine Urobilinogen 1.0 Ur Leukocyte Esterase 1+ H Urine WBC (Auto) 5 Urine RBC (Auto) 3 Urine Casts (Auto) 6 U Epithel Cells (Auto) 2.9 Urine Bacteria (Auto) 20.[address] scan left upper lobe collapse , consolidation ,possible due to obstructed bronchi, large left pleural effusion , LLL infiltrate , and peribronchial thickening,, multiple B/L pulm nodule , small pericardial effusion , pneumobilia EKG Sinus tachy with no St, T wave changes ASSESSMENT/PLAN: The pt is a 63F w/ history of hypertension, diabetes, pancreatic CA initially diagnosed in 2016 with metastatic lung lesions S/p chemo/radiation stopped in April 2018 secondary to episode of shingles. The patient is a now s/p pericardial window, drainage of effusion, pleur-x placement. presented to ED for sob pt was supposed to have pleural effusion drained at home and was not done because she did not get special bottles for drainage . admitted for hypoxic respiratory failure due to worseing pleural effusion , R.Oobstructive pNA # sepsis likely due to UTI vs obstructive PNA vs empyema vs another unknown etiology # pancreatic cancer with mets to liver and ling # worsening Left pleural effusion S/p pleur-x , likely from mets can not r.o pleural fluid infection # small pericardial effusion, # HTN # DM # chronic back pain # DVT left leg # malnutrition and loss of appetite # weight loss 7 pounds in one week Plan * cxr with left pleural effusion with RLL infiltrate ,need to be drain in AM , usually drained twice a week per pt , * ct chest reviewed * LA 2.7 repeat after iv fluids and abx * watkins cx * pleural fluids analysis R.O empyema * IV fluids * Abx vanco/zosyn in Ed cont * pain control with morphine 2 mg q 4hr for pain 6-10 and percocet q4 hr for pain 1-5 * maintain BP with MAP > 65 , maintain o2 > 90 on 4 L o2 (She is @ 3.5 at home ) * Hold BP meds as pt can go into septic shock , monitor closely and transfer to ICU if needed * DM on Metformin and 15 units long acting insulin in AM at home , will hold for now and start ISS ACHS , will restart levemir 7 units and titrate to 15 if needed as pt is not eating as usual * Pulm consult * riprap placer consult * incentive spirometry # FEN * F: bolus 2 L in ED , cont NS @ 75 CC/hr * Monitor lytes * Diabetic diet # proph * Dvts: SCDs, Eliquis 5 BID * GI: Cont ranitidine home dose # Dispo * M/S per Dr Marie , will transfer to tele or ICU if needed # Full code # consider hospice care Visit type - Emergency Visit Emergency Visit: Yes ED Registration Date: 02/27/19 Care time: The patient presented to the Emergency Department on the above date and was hospitalized for further evaluation of their emergent condition. - New Patient This patient is new to me today: Yes Date on this admission: 02/27/19 - Critical Care Critical Care patient: No
[2019-02-28 03:35] LABS: BLOOD UREA NITROGEN 24 mg/dL (7-18); GLUCOSE,RANDOM 251 mg/dL (74-106)
[2019-02-28 03:43] LABS: ALBUMIN 2.2 g/dl (3.4-5.0); ALK PHOS 396 U/L (45-117); ANION GAP 11 MMOL/L (8-16); BILIRUBIN,TOTAL 0.8 mg/dL (0.2-1); BLOOD UREA NITROGEN 24 mg/dL (7-18); CHLORIDE 106 mmol/L (98-107); CO2 20 mmol/L (21-32); CREATININE 0.6 mg/dL (0.55-1.3); GLUCOSE,RANDOM 245 mg/dL (74-106); POTASSIUM 4.1 mmol/L (3.5-5.1); SGOT/AST 22 U/L (15-37); SGPT/ALT 10 U/L (13-61); SODIUM 138 mmol/L (136-145); TOT PROT 5.4 g/dl (6.4-8.2)
[2019-02-28] MEDS ORDERED: ACETAMINOPHEN 325 MG TABLET (FP) PO PRN (03:46)
[2019-02-28 03:47] LABS: CALCIUM 6.9 mg/dL (8.5-10.1)
[2019-02-28] MEDS: SODIUM CHLORIDE 1,000 ML IV SCH ×2 (04:16→21:58)
[2019-02-28 05:53] LABS: BASO % 0.7 % (0-2.0); EOS % 0.2 % (0-4.5); HEMOGLOBIN 9.9 GM/dL (10.7-15.3); LYMPH % 8.8 % (8-40); MCH 29.3 pg (25.7-33.7); MCHC 32.9 g/dl (32.0-36.0); MEAN CELL VOLUME 89.1 fl (80-96); MEAN PLT VOLUME 8.9 fl (7.5-11.1); MONO % 5.7 % (3.8-10.2); NEUT % 84.6 % (42.8-82.8); PLATELET COUNT 60 K/MM3 (134-434); RBC 3.37 M/mm3 (3.60-5.2); RDW 17.7 % (11.6-15.6); WHITE BLOOD COUNT 15.8 K/mm3 (4.0-10.0)
[2019-02-28] MEDS: PIPERACILLIN/TAZOB 3.375 GM 3.375 GM in DEXTROSE 5%-WATER - 50 ML IVPB SCH ×3 (05:55→17:52)
[2019-02-28 06:05] LABS: INR 1.79 (0.83-1.09); PROTHROMBIN TIME (PATIENT) 21.2 SEC (9.7-13.0)
[2019-02-28 06:08] LABS: ACTIVATED PTT 34.7 SECONDS (25.2-36.5)
[2019-02-28 06:22] LABS: ALBUMIN 2.1 g/dl (3.4-5.0); ALK PHOS 369 U/L (45-117); ANION GAP 10 MMOL/L (8-16); BILIRUBIN,TOTAL 0.7 mg/dL (0.2-1); BLOOD UREA NITROGEN 22 mg/dL (7-18); CALCIUM 7.2 mg/dL (8.5-10.1); CHLORIDE 106 mmol/L (98-107); CO2 22 mmol/L (21-32); CREATININE 0.5 mg/dL (0.55-1.3); GLUCOSE,RANDOM 215 mg/dL (74-106); MAGNESIUM 1.6 mg/dL (1.8-2.4); N-TERMINAL BNP 789.3 pg/ml (5-125); PHOSPHOROUS 2.9 mg/dL (2.5-4.9); SGOT/AST 20 U/L (15-37); SGPT/ALT 10 U/L (13-61); SODIUM 138 mmol/L (136-145)
[2019-02-28] MEDS: MORPHINE SULFATE 2 MG/ML VIAL IVPUSH PRN ×3 (06:40→21:51)
[2019-02-28 07:12] LABS: ARTERIAL BLD GAS O2 SATURATION 94.1 % (95-98); ARTERIAL BLOOD GAS BASE EXCESS -0.9 meq/l (-2-2); ARTERIAL BLOOD GAS PCO2 34.9 mmHg (35-45); ARTERIAL BLOOD GAS pH 7.43 (7.35-7.45)
[2019-02-28 07:17] LABS: ALLENS TEST POSITIVE
[2019-02-28] MEDS ORDERED: INSULIN (LEVEMIR) 100 UNITS/ML UNITS SQ ONE (08:27)
[2019-02-28] MEDS ORDERED: INSULIN REGULAR HUMAN 100 UNITS/ML *VIAL ONE (08:28)
[2019-02-28] MEDS: INSULIN (LEVEMIR) 100 UNITS/ML UNITS SQ SCH (08:30)
[2019-02-28] MEDS: INSULIN SLIDING SCALE (NOVOLOG) 1 VIAL SQ SCH ×4 (08:47→21:53)
[2019-02-28] MEDS: LIPASE/PROTEASE/AMYLASE 6,000 UNIT CAPSULE PO SCH ×3 (09:03→17:51)
[2019-02-28] MEDS ORDERED: PANTOPRAZOLE 20 MG TABLET (FP) PO SCH (10:00)
[2019-02-28] MEDS ORDERED: RANITIDINE HCL 150 MG TABLET (FP) PO SCH (10:00)
[2019-02-28] MEDS ORDERED: INSULIN (LEVEMIR) 100 UNITS/ML UNITS SQ SCH (10:00)
[2019-02-28] MEDS ORDERED: VANCOMYCIN 1,000 MG in DEXTROSE 5%-WATER - 250 ML IVPB ONE (11:00)
[2019-02-28] MEDS ORDERED: PIPERACILLIN/TAZOBACTAM 3.375 GM VIAL IVPB ONE ×2 (11:05→17:30)
[2019-02-28] MEDS ORDERED: DEXTROSE 5%-WATER - 50 ML IVPB ONE ×2 (11:05→17:30)
[2019-02-28] MEDS: APIXABAN 5 MG TABLET PO SCH ×2 (11:08→21:51)
--- NOTE | 2019-02-28 12:23 | EKG ---
Test Reason : Blood Pressure : / mmHG Vent. Rate : 137 BPM Atrial Rate : 137 BPM P-R Int : 122 ms QRS Dur : 064 ms QT Int : 290 ms P-R-T Axes : 059 056 045 degrees QTc Int : 437 ms POOR DATA QUALITY, INTERPRETATION MAY BE ADVERSELY AFFECTED SINUS TACHYCARDIA POSSIBLE LEFT ATRIAL ENLARGEMENT SEPTAL INFARCT (CITED ON OR BEFORE 16-MAY-2016) ABNORMAL ECG WHEN COMPARED WITH ECG OF 10-FEB-2019 21:34, NO SIGNIFICANT CHANGE WAS FOUND Confirmed by BRYAN HERRERA, SENIA ([id number]) on 02/28/2019 12:22:57 PM Referred By: Confirmed By:SENIA ADAMS MD
--- NOTE | 2019-02-28 13:09 | PN ---
Progress Note (short form) - Note Progress Note: PULMONARY CONSULTATION DICTATED 02/28/19 IMP ACUTE ON CHRONIC HYPOXEMIC RESPIRATORY FAILURE MALIGNANT L PLEURAL EFFUSION S/P PLEUR-X METASTATIC PANCREATIC CA LUNG,LIVER METS DVT HLD HTN THROMBOCYOPENIA ELEVATED LACTATE LEVEL PLAN INHALED BRONCHODILATORS O2 MEDROL PLEUR-X DRAINAGE MONITOR LYTES,PLT CT TREND LACTATE F/U CHEST X-RAYS PROGNOSIS POOR CONSIDER HOSPICE CARE DR HOPPER Problem List - Problems (1) Acute on chronic respiratory failure with hypoxemia Code(s): J96.21 - ACUTE AND CHRONIC RESPIRATORY FAILURE WITH HYPOXIA (2) DVT (deep venous thrombosis) Code(s): I82.409 - ACUTE EMBOLISM AND THOMBOS UNSP DEEP VN UNSP LOWER EXTREMITY (3) Diabetes mellitus Code(s): E11.9 - TYPE 2 DIABETES MELLITUS WITHOUT COMPLICATIONS (4) Dyspnea Code(s): R06.00 - DYSPNEA, UNSPECIFIED Qualifiers: Dyspnea type: shortness of breath Qualified Code(s): R06.02 - Shortness of breath; R06.00 - Dyspnea, unspecified; R06.01 - Orthopnea (5) Hypertension Code(s): I10 - ESSENTIAL (PRIMARY) HYPERTENSION (6) Pancreatic cancer metastasized to lung Code(s): C25.9 - MALIGNANT NEOPLASM OF PANCREAS, UNSPECIFIED; C78.00 - SECONDARY MALIGNANT NEOPLASM OF UNSPECIFIED LUNG (7) Pancreatic mass Code(s): K86.9 - DISEASE OF PANCREAS, UNSPECIFIED (8) Pleural effusion Code(s): J90 - PLEURAL EFFUSION, NOT ELSEWHERE CLASSIFIED
[2019-02-28] MEDS: ALBUTEROL SO4 0.083% IH SOL 2.5 MG/3 ML VIAL.NEB. NEB PRN (13:17)
[2019-02-28 13:34] LABS: ALBUMIN 2.4 g/dl (3.4-5.0); ALK PHOS 406 U/L (45-117); ANION GAP 11 MMOL/L (8-16); BILIRUBIN,TOTAL 0.9 mg/dL (0.2-1); BLOOD UREA NITROGEN 25 mg/dL (7-18); CALCIUM 8.2 mg/dL (8.5-10.1); CHLORIDE 102 mmol/L (98-107); CO2 21 mmol/L (21-32); CREATININE 0.6 mg/dL (0.55-1.3); GLUCOSE,RANDOM 189 mg/dL (74-106); SGOT/AST 36 U/L (15-37); SGPT/ALT 13 U/L (13-61); SODIUM 134 mmol/L (136-145); TOT PROT 5.7 g/dl (6.4-8.2)
--- NOTE | 2019-02-28 13:50 | PN ---
Progress Note (short form) - Note Progress Note: ID consult dictated [email or web address] 63 yo female with metastatic pancreatic cancer, no chemo for 8 months, has a Pleurx placed for left pleural effusion unable to drain the lung yesterday (usually mon/Thurs) no supplies so unable to drain the lung yesterday she felt more SOB so they came to the ER no fevers no nausea or vomiting leukocytosis pleural effusion cannot r/o pneumonia (doubt) f/u cultures short course of zosyn send pleural cultures if possible when lung is drainaged metastatic pancreatic cancer- palliative care Problem List - Problems (1) SOB (shortness of breath) Code(s): R06.02 - SHORTNESS OF BREATH (2) Malignant pleural effusion Code(s): J91.0 - MALIGNANT PLEURAL EFFUSION (3) Pancreatic cancer metastasized to lung Code(s): C25.9 - MALIGNANT NEOPLASM OF PANCREAS, UNSPECIFIED; C78.00 - SECONDARY MALIGNANT NEOPLASM OF UNSPECIFIED LUNG
--- NOTE | 2019-02-28 14:11 | CONS ---
DATE OF CONSULTATION: 02/28/2019 REFERRING PHYSICIAN: Evin Marie M.D. HISTORY OF PRESENT ILLNESS: Patient is a 63-year-old female known to me in previous hospitalization with past medical history of metastatic pancreatic cancer with lung and liver metastasis, currently on no treatment, history of left pleural effusion, status post PleurX catheter, diabetes mellitus, hypertension, hyperlipidemia, DVT, maintained on Eliquis, admitted to [facility] with the acute onset of shortness of breath. Patient states that she has chronic shortness of breath and maintained on home O2 2.5 L. Apparently she had drainage of the PleurX catheter on Sunday approximately 5 mL. Yesterday she started to feel increasing shortness of breath, walked a few feet developing severe dyspnea at which time she presented to the emergency room. Apparently she was supposed to have the pleural effusion drained yesterday, but the equipment was not available. Patient was admitted with the above. On admission she underwent a CT scan of the chest, which revealed partially loculated left pleural effusion and atelectactic area in the left upper lobe. Multiple pulmonary nodules bilaterally. Patient is a nonsmoker. There was no history of occupational exposure to chemicals and fumes. There was no COPD or asthma in the past. There is no history of recent travel. PAST MEDICAL HISTORY: Her past medical history again includes metastatic pancreatic cancer, lung and liver metastasis, currently on no chemotherapy; diabetes mellitus, left pleural effusion, status post PleurX catheter, hypertension, hyperlipidemia, DVT. REVIEW OF SYSTEMS: Positive dyspnea, orthopnea. No chest pain, no palpitations, no cough, no hemoptysis, no fever, no chills. Positive weight loss. MEDICATIONS: Current medications include: 1. Piperacillin. 2. Eliquis. 3. Albuterol. 4. Creon. 5. Normal saline. 6. Zantac. 7. Novolog. 8. Levemir. 9. Morphine. 10. Percocet. PHYSICAL EXAMINATION: General: On physical examination, patient is a chronically ill-appearing white female thin, mildly dyspneic, in no acute distress. Vitals: She is currently afebrile. Heart rate is 97, temperature is 98.3, respiratory rate is 17, O2 saturation 95% on 2 L. HEENT: Normocephalic, atraumatic. Neck: Supple. Heart: Regular S1, S2. Chest: Bilateral wheezes and rhonchi. Abdomen: Soft, bowel sounds positive. Extremities: Without cyanosis, edema. Waiting for the labs to come. LABORATORY DATA: INR is 1.79. WBC is 15.8, hemoglobin 9.9, hematocrit 30, platelet count of 60,000. Blood gas pH 7.43, pCO2 of 39 and pO2 of 72, bicarbonate of 22 and a saturation of 94, that was on 3 L nasal cannula. BUN 22, creatinine 0.5, lactate level 3.5, BNP 789. IMPRESSION: 1. Acute on chronic hypoxemic respiratory failure, secondary to metastatic pancreatic cancer. 2. Chronic left pleural effusion, status post PleurX. 3. History of deep vein thrombosis on Eliquis. 4. Hypertension. 5. Hyperlipidemia. 6. Elevated lactate level. 7. Thrombocytopenia. PLAN: Inhaled bronchodilators. Supplemental O2 to maintain saturation 90% or greater. Short course of steroids. PleurX drainage. Follow up chest x-rays. Monitor platelet count. Trend lactate. Chest CT. LIZBETH HOPPER M.D. [id number]
--- NOTE | 2019-02-28 14:56 | CONS ---
DATE OF CONSULTATION: DATE OF DICTATION: 02/28/2019 HISTORY: This is a 63-year-old woman with metastatic pancreatic cancer to the lung. She has a history also of malignant pleural and pericardial effusion. She is status post VATS, pericardial window, and she has a Pleurx in her left lung. She was last hospitalized here February 10 to February 13. The family has been draining about 500 mL of bloody fluid via the Pleurx twice a week on Mondays and . They did not have any supplies yesterday to do the drainage. They noted that she was more short of breath, and they brought her to the emergency room. She denies any fevers or chills. She is awake and alert. There has been no nausea or vomiting. She has had no change in her bowel habits. She has not had any sick contacts. She lives with her family. Apparently she has not had any chemo for the last 8 months. PAST MEDICAL HISTORY: Notable for metastatic pancreatic cancer with lung and liver metastases, [id number] diabetes, left pleural effusion with Pleurx catheter, hypertension, hyperlipidemia, DVT. PAST SURGICAL HISTORY: She is status post VATS and pericardial window. She is also status post cholecystectomy. ALLERGIES: She has no known drug allergies. MEDICATIONS: Her medications at home include apixaban, metformin, ranitidine, ramipril, oxycodone, pancrease enzyme, and amlodipine. SOCIAL HISTORY: She lives with her family. REVIEW OF SYSTEMS: As per HPI. PHYSICAL EXAMINATION: General: She is awake and alert. Family notes she is mildly short of breath. Vital Signs: Temperature is 98.3. She has had no fever since admission. Pulse of 97, blood pressure 121/81, respiratory rate 17. She is saturating 95% on room air. HEENT: She is normocephalic. Her eyes are anicteric. Neck: Supple. Lungs: She has diminished breath sounds both lungs, left greater than right. Heart: Regular rate and rhythm. Abdomen: Soft, nontender. Extremities: Without edema. LABORATORY: Labs are notable for a white count of 15.8, hemoglobin 9.9, platelets of 60,000. INR is 1.7. BUN and creatinine are 25 and 0.5. Alkaline phosphatase is . 1+ leukocytes with 5 white cells. Blood cultures are pending. CAT scan of the chest is notable for partially loculated left pleural effusion, extensive atelectasis of the left upper lobe, partial atelectasis of the left lower lobe, dense pulmonary nodularity suspicious for metastatic disease, small right pleural effusion. SUMMARY: This is a 63-year-old woman with metastatic pancreatic cancer, admitted with shortness of breath most likely on the basis of this enlarging pleural effusion. Plan is for drainage. With the leukocytosis, we cannot rule out pneumonia, but I suspect this is all related to her malignancy. Would follow up cultures, short course Zosyn, would send pleural cultures if possible when the lung is drained. Bertin [id number]
[2019-02-28] MEDS: ALBUTEROL SO4 2.5/IPRATROPIUM 0.5 INH SOL 3 ML VIAL.NEB. NEB SCH ×2 (15:45→19:40)
[2019-02-28] MEDS: methylPREDNISolone NA SUCC 40 MG/1 ML VIAL IVPUSH SCH ×2 (16:55→21:51)
[2019-02-28] MEDS ORDERED: PT OWN MED DRAWER 7, Y5N ONE (17:29)
[2019-02-28] MEDS ORDERED: PIPERACILLIN/TAZOB 3.375 GM 3.375 GM in DEXTROSE 5%-WATER - 50 ML IVPB SCH (18:00)
[2019-02-28 20:18] LABS: EPI CELLS 3.7 /HPF (0-5); URINE APPEARANCE CLEAR; URINE BACTERIA 2.5 /hpf (NEGATIVE); URINE BILIRUBIN NEGATIVE (NEGATIVE); URINE CASTS 2 /hpf (0-8); URINE COLOR YELLOW; URINE GLUCOSE (UA) NEGATIVE (NEGATIVE); URINE KETONE NEGATIVE (NEGATIVE); URINE LEUK ESTERASE 1+ (NEGATIVE); URINE NITRITE NEGATIVE (NEGATIVE); URINE PROTEIN TRACE (NEGATIVE); URINE RBC 1 /hpf (0-4); URINE WBC 5 /hpf (0-5)
[2019-03-01] MEDS ORDERED: PIPERACILLIN/TAZOBACTAM 3.375 GM VIAL IVPB ONE ×3 (00:47→16:47)
[2019-03-01] MEDS ORDERED: DEXTROSE 5%-WATER - 50 ML IVPB ONE ×3 (00:47→16:47)
[2019-03-01] MEDS: PIPERACILLIN/TAZOB 3.375 GM 3.375 GM in DEXTROSE 5%-WATER - 50 ML IVPB SCH ×3 (01:45→17:33)
[2019-03-01] MEDS: ALBUTEROL SO4 0.083% IH SOL 2.5 MG/3 ML VIAL.NEB. NEB PRN (02:02)
[2019-03-01] MEDS: MORPHINE SULFATE 2 MG/ML VIAL IVPUSH PRN ×4 (02:34→20:26)
[2019-03-01] MEDS: methylPREDNISolone NA SUCC 40 MG/1 ML VIAL IVPUSH SCH ×4 (02:35→22:01)
[2019-03-01] MEDS: ALBUTEROL SO4 2.5/IPRATROPIUM 0.5 INH SOL 3 ML VIAL.NEB. NEB SCH ×4 (07:05→21:15)
[2019-03-01] MEDS: SODIUM CHLORIDE 1,000 ML IV SCH ×2 (07:46→14:37)
[2019-03-01] MEDS ORDERED: INSULIN (NOVOLOG) ASPART 100 UNITS/ML 10ML VIAL ONE (07:51)
[2019-03-01] MEDS: INSULIN (LEVEMIR) 100 UNITS/ML UNITS SQ SCH (07:54)
[2019-03-01] MEDS: INSULIN SLIDING SCALE (NOVOLOG) 1 VIAL SQ SCH ×4 (07:54→21:58)
[2019-03-01] MEDS: LIPASE/PROTEASE/AMYLASE 6,000 UNIT CAPSULE PO SCH ×3 (08:11→17:37)
[2019-03-01] MEDS: RANITIDINE HCL 150 MG/10 ML UNIT-DOSE PO SCH (09:18)
[2019-03-01] MEDS: APIXABAN 5 MG TABLET PO SCH ×2 (09:19→22:01)
--- NOTE | 2019-03-01 11:13 | PN ---
Progress Note, Physician Chief Complaint: No new complaints feels comfortable - Current Medication List Current Medications: Active Medications Albuterol Sulfate (Ventolin 0.083% Nebulizer Soln -) 1 amp NEB Q6H PRN PRN Reason: SHORT OF BREATH/WHEEZING Last Admin: 03/01/19 02:02 Dose: 1 amp Albuterol/Ipratropium (Duoneb -) 1 amp NEB RQID [facility] [place] Last Admin: 03/01/19 07:05 Dose: 1 amp Apixaban (Eliquis -) 5 mg PO BID [facility] [place] Last Admin: 03/01/19 09:19 Dose: 5 mg Sodium Chloride (Normal Saline -) 1,000 mls @ 75 mls/hr IV ASDIR [facility] [place] Last Admin: 03/01/19 07:46 Dose: Not Given Piperacillin Sod/Tazobactam (Sod 3.375 gm/ Dextrose) 50 mls @ 100 mls/hr IVPB Q8H-IV [facility] [place]; Protocol Last Admin: 03/01/19 09:19 Dose: 100 mls/hr Insulin Aspart (Novolog Vial Sliding Scale -) 1 vial SQ ACHS [facility] [place]; Protocol Last Admin: 03/01/19 07:54 Dose: 6 units Insulin Detemir (Levemir Vial) 7 units SQ DAILY@0700 [facility] [place] Last Admin: 03/01/19 07:54 Dose: 7 units Methylprednisolone Sodium Succinate (Solu-Medrol -) 40 mg IVPUSH Q6H-IV [facility] [place] Last Admin: 03/01/19 08:03 Dose: 40 mg Morphine Sulfate (Morphine Sulfate) 2 mg IVPUSH Q4H PRN PRN Reason: PAIN LEVEL 6-10 Last Admin: 03/01/19 07:56 Dose: 2 mg Oxycodone/Acetaminophen (Percocet 5/325 -) 1 combo PO Q4H PRN PRN Reason: PAIN LEVEL 1-5 Pancrelipase (Creon Dr 6,000 Units Capsule) 2 cap PO TIDCM [facility] [place] Last Admin: 03/01/19 08:11 Dose: 2 cap Ranitidine HCl (Zantac Oral Solution -) 150 mg PO DAILY [facility] [place] Last Admin: 03/01/19 09:18 Dose: 150 mg - Objective Vital Signs: Vital Signs Temperature 97.4 F L 03/01/19 06:00 Pulse Rate 109 H 03/01/19 06:00 Respiratory Rate 20 03/01/19 06:00 Blood Pressure 125/73 03/01/19 06:00 O2 Sat by Pulse Oximetry (%) 100 02/28/19 21:00 Elderly F sick lookig not in distress HEENT: m moist, mild aemia FARSHAD: No JVD o Bruit CHEST: AE Decrease on Left Left sided Pleurex cathter at place ABD: No distention non tender; EXT: No edema feet BRIM CUTTER: AOX3 non focal Labs: CBC, BMP 02/28/19 05:30 02/28/19 05:30 INR, PTT INR 1.79 (0.83-1.09) H 02/28/19 05:30 Problem List - Problems (1) Acute on chronic respiratory failure with hypoxemia Assessment/Plan: Due to Malignant pleural effusion, yesterday removed 850 CC F/U with Pulmonary consult Code(s): J96.21 - ACUTE AND CHRONIC RESPIRATORY FAILURE WITH HYPOXIA (2) Malignant pleural effusion Code(s): J91.0 - MALIGNANT PLEURAL EFFUSION (3) Hypertension Assessment/Plan: Well controlled cot current meds Code(s): I10 - ESSENTIAL (PRIMARY) HYPERTENSION (4) Pulmonary embolism Assessment/Plan: On AC with Apaxiban Code(s): I26.99 - OTHER PULMONARY EMBOLISM WITHOUT ACUTE COR PULMONALE (5) Pancreatic cancer metastasized to lung Assessment/Plan: On Hospice care no active treatment Code(s): C25.9 - MALIGNANT NEOPLASM OF PANCREAS, UNSPECIFIED; C78.00 - SECONDARY MALIGNANT NEOPLASM OF UNSPECIFIED LUNG
--- NOTE | 2019-03-01 11:46 | PN ---
Progress Note, Physician History of Present Illness: PULMONARY ALERT,FEELING BETTER,LESS DYSPNEIC,S/P DRAINAGE PLEUR-X - Current Medication List Current Medications: Active Medications Albuterol Sulfate (Ventolin 0.083% Nebulizer Soln -) 1 amp NEB Q6H PRN PRN Reason: SHORT OF BREATH/WHEEZING Last Admin: 03/01/19 02:02 Dose: 1 amp Albuterol/Ipratropium (Duoneb -) 1 amp NEB RQID [facility] Last Admin: 03/01/19 07:05 Dose: 1 amp Apixaban (Eliquis -) 5 mg PO BID [facility] Last Admin: 03/01/19 09:19 Dose: 5 mg Sodium Chloride (Normal Saline -) 1,000 mls @ 75 mls/hr IV ASDIR [facility] Last Admin: 03/01/19 07:46 Dose: Not Given Piperacillin Sod/Tazobactam (Sod 3.375 gm/ Dextrose) 50 mls @ 100 mls/hr IVPB Q8H-IV [facility]; Protocol Last Admin: 03/01/19 09:19 Dose: 100 mls/hr Insulin Aspart (Novolog Vial Sliding Scale -) 1 vial SQ ACHS [facility]; Protocol Last Admin: 03/01/19 11:34 Dose: 6 units Insulin Detemir (Levemir Vial) 7 units SQ DAILY@0700 [facility] Last Admin: 03/01/19 07:54 Dose: 7 units Methylprednisolone Sodium Succinate (Solu-Medrol -) 40 mg IVPUSH Q6H-IV [facility] Last Admin: 03/01/19 08:03 Dose: 40 mg Morphine Sulfate (Morphine Sulfate) 2 mg IVPUSH Q4H PRN PRN Reason: PAIN LEVEL 6-10 Last Admin: 03/01/19 07:56 Dose: 2 mg Oxycodone/Acetaminophen (Percocet 5/325 -) 1 combo PO Q4H PRN PRN Reason: PAIN LEVEL 1-5 Pancrelipase (Creon Dr 6,000 Units Capsule) 2 cap PO TIDCM [facility] Last Admin: 03/01/19 08:11 Dose: 2 cap Ranitidine HCl (Zantac Oral Solution -) 150 mg PO DAILY [facility] Last Admin: 03/01/19 09:18 Dose: 150 mg - Objective Vital Signs: Vital Signs Temperature 97.4 F L 03/01/19 06:00 Pulse Rate 109 H 03/01/19 06:00 Respiratory Rate 20 03/01/19 06:00 Blood Pressure 125/73 03/01/19 06:00 O2 Sat by Pulse Oximetry (%) 100 02/28/19 21:00 Constitutional: Yes: Calm, Thin Eyes: Yes: WNL HENT: Yes: WNL Neck: Yes: WNL Cardiovascular: Yes: Regular Rate and Rhythm, S1, S2 Respiratory: Yes: Rhonchi (SCATTERED STEPHEN RHONCHI) Gastrointestinal: Yes: Normal Bowel Sounds, Soft Extremities: Yes: WNL Edema: No Labs: CBC, BMP 02/28/19 05:30 02/28/19 05:30 INR, PTT INR 1.79 (0.83-1.09) H 02/28/19 05:30 Problem List - Problems (1) Acute on chronic respiratory failure with hypoxemia Code(s): J96.21 - ACUTE AND CHRONIC RESPIRATORY FAILURE WITH HYPOXIA (2) DVT (deep venous thrombosis) Code(s): I82.409 - ACUTE EMBOLISM AND THOMBOS UNSP DEEP VN UNSP LOWER EXTREMITY (3) Diabetes mellitus Code(s): E11.9 - TYPE 2 DIABETES MELLITUS WITHOUT COMPLICATIONS (4) Dyspnea Code(s): R06.00 - DYSPNEA, UNSPECIFIED Qualifiers: Dyspnea type: shortness of breath Qualified Code(s): R06.02 - Shortness of breath; R06.00 - Dyspnea, unspecified; R06.01 - Orthopnea (5) Hypertension Code(s): I10 - ESSENTIAL (PRIMARY) HYPERTENSION (6) Pancreatic cancer metastasized to lung Code(s): C25.9 - MALIGNANT NEOPLASM OF PANCREAS, UNSPECIFIED; C78.00 - SECONDARY MALIGNANT NEOPLASM OF UNSPECIFIED LUNG (7) Pancreatic mass Code(s): K86.9 - DISEASE OF PANCREAS, UNSPECIFIED (8) Pleural effusion Code(s): J90 - PLEURAL EFFUSION, NOT ELSEWHERE CLASSIFIED Assessment/Plan IMP ACUTE ON CHRONIC HYPOXEMIC RESPIRATORY FAILURE MALIGNANT L PLEURAL EFFUSION S/P PLEUR-X METASTATIC PANCREATIC CA LUNG,LIVER METS DVT HLD HTN THROMBOCYOPENIA ELEVATED LACTATE LEVEL PLAN INHALED BRONCHODILATORS O2 MEDROL PLEUR-X DRAINAGE MONITOR LYTES,PLT CT F/U CHEST X-RAYS PROGNOSIS POOR DR HOPPER Problem List - Problems (1) Acute on chronic respiratory failure with hypoxemia Code(s): J96.21 - ACUTE AND CHRONIC RESPIRATORY FAILURE WITH HYPOXIA (2) DVT (deep venous thrombosis) Code(s): I82.409 - ACUTE EMBOLISM AND THOMBOS UNSP DEEP VN UNSP LOWER EXTREMITY (3) Diabetes mellitus Code(s): E11.9 - TYPE 2 DIABETES MELLITUS WITHOUT COMPLICATIONS (4) Dyspnea Code(s): R06.00 - DYSPNEA, UNSPECIFIED Qualifiers: Dyspnea type: shortness of breath Qualified Code(s): R06.02 - Shortness of breath; R06.00 - Dyspnea, unspecified; R06.01 - Orthopnea (5) Hypertension Code(s): I10 - ESSENTIAL (PRIMARY) HYPERTENSION (6) Pancreatic cancer metastasized to lung Code(s): C25.9 - MALIGNANT NEOPLASM OF PANCREAS, UNSPECIFIED; C78.00 - SECONDARY MALIGNANT NEOPLASM OF UNSPECIFIED LUNG (7) Pancreatic mass Code(s): K86.9 - DISEASE OF PANCREAS, UNSPECIFIED (8) Pleural effusion Code(s): J90 - PLEURAL EFFUSION, NOT ELSEWHERE CLASSIFIED
[2019-03-01] MEDS ORDERED: PT OWN MED DRAWER 7, Y5N ONE (13:15)
[2019-03-01] MEDS: SENNOSIDES 8.6MG TABLET (FP) PO PRN (23:10)
[2019-03-02] MEDS: ALBUTEROL SO4 0.083% IH SOL 2.5 MG/3 ML VIAL.NEB. NEB PRN (00:42)
[2019-03-02] MEDS ORDERED: DEXTROSE 5%-WATER - 50 ML IVPB ONE ×3 (00:57→17:07)
[2019-03-02] MEDS ORDERED: PIPERACILLIN/TAZOBACTAM 3.375 GM VIAL IVPB ONE ×3 (00:57→17:07)
[2019-03-02] MEDS: MORPHINE SULFATE 2 MG/ML VIAL IVPUSH PRN ×3 (01:07→18:01)
[2019-03-02] MEDS: PIPERACILLIN/TAZOB 3.375 GM 3.375 GM in DEXTROSE 5%-WATER - 50 ML IVPB SCH ×3 (01:25→17:12)
[2019-03-02] MEDS: methylPREDNISolone NA SUCC 40 MG/1 ML VIAL IVPUSH SCH ×3 (02:04→17:12)
[2019-03-02] MEDS: ACETAMINOPHEN 325 MG TABLET (FP) PO PRN ×3 (02:25→21:35)
[2019-03-02] MEDS: oxyCODONE HCL 5 MG TABLET PO PRN ×3 (02:25→21:35)
[2019-03-02] MEDS: INSULIN SLIDING SCALE (NOVOLOG) 1 VIAL SQ SCH ×4 (06:11→21:41)
[2019-03-02] MEDS: INSULIN (LEVEMIR) 100 UNITS/ML UNITS SQ SCH (06:12)
[2019-03-02] MEDS: SODIUM CHLORIDE 1,000 ML IV SCH ×2 (06:19→15:27)
[2019-03-02 07:22] LABS: BASO % 0.1 % (0-2.0); HEMOGLOBIN 8.1 GM/dL (10.7-15.3); LYMPH % 3.3 % (8-40); MCH 29.2 pg (25.7-33.7); MCHC 32.6 g/dl (32.0-36.0); MEAN CELL VOLUME 89.4 fl (80-96); MEAN PLT VOLUME 8.3 fl (7.5-11.1); MONO % 1.7 % (3.8-10.2); NEUT % 94.9 % (42.8-82.8); PLATELET COUNT 90 K/MM3 (134-434); RBC 2.79 M/mm3 (3.60-5.2); RDW 17.4 % (11.6-15.6); WHITE BLOOD COUNT 13.7 K/mm3 (4.0-10.0)
[2019-03-02 07:42] LABS: ANION GAP 7 MMOL/L (8-16); BLOOD UREA NITROGEN 17 mg/dL (7-18); CALCIUM 7.8 mg/dL (8.5-10.1); CHLORIDE 110 mmol/L (98-107); CO2 23 mmol/L (21-32); CREATININE 0.5 mg/dL (0.55-1.3); GLUCOSE,RANDOM 224 mg/dL (74-106); POTASSIUM 3.6 mmol/L (3.5-5.1); SODIUM 141 mmol/L (136-145)
[2019-03-02] MEDS: ALBUTEROL SO4 2.5/IPRATROPIUM 0.5 INH SOL 3 ML VIAL.NEB. NEB SCH ×4 (08:00→20:45)
[2019-03-02] MEDS ORDERED: PT OWN MED DRAWER 7, Y5N ONE (08:09)
[2019-03-02] MEDS: LIPASE/PROTEASE/AMYLASE 6,000 UNIT CAPSULE PO SCH ×3 (08:16→17:12)
[2019-03-02] MEDS: RANITIDINE HCL 150 MG/10 ML UNIT-DOSE PO SCH (10:10)
[2019-03-02] MEDS: APIXABAN 5 MG TABLET PO SCH ×2 (10:11→21:36)
[2019-03-02 10:58] LABS: ANISOCYTOSIS 0; HELMET CELLS 0; HOWELL-JOLLY BODIES 0; MACROCYTOSIS 0; OVALOCYTE 0; PLATELET ESTIMATE DECREASED; ROULEAU 0; SICKELED CELLS 0; TARGET CELLS 0; TEAR DROP CELLS 0; TOXIC GRANULATION 0
--- NOTE | 2019-03-02 12:04 | PN ---
Progress Note, Physician History of Present Illness: pulmonary alert,no distress,dyspnea significantly improved - Current Medication List Current Medications: Active Medications Acetaminophen (Tylenol -) 325 mg PO Q4H PRN PRN Reason: PAIN LEVEL 1-5 Stop: 03/03/19 04:00 Last Admin: 03/02/19 10:16 Dose: 325 mg Albuterol Sulfate (Ventolin 0.083% Nebulizer Soln -) 1 amp NEB Q6H PRN PRN Reason: SHORT OF BREATH/WHEEZING Last Admin: 03/02/19 00:42 Dose: 1 amp Albuterol/Ipratropium (Duoneb -) 1 amp NEB RQID [facility] Last Admin: 03/01/19 21:15 Dose: 1 amp Apixaban (Eliquis -) 5 mg PO BID [facility] Last Admin: 03/02/19 10:11 Dose: 5 mg Docusate Sodium (Colace -) 100 mg PO TID [facility] Sodium Chloride (Normal Saline -) 1,000 mls @ 75 mls/hr IV ASDIR [facility] Last Admin: 03/02/19 06:19 Dose: 75 mls/hr Piperacillin Sod/Tazobactam (Sod 3.375 gm/ Dextrose) 50 mls @ 100 mls/hr IVPB Q8H-IV [facility]; Protocol Last Admin: 03/02/19 10:10 Dose: 100 mls/hr Insulin Aspart (Novolog Vial Sliding Scale -) 1 vial SQ ACHS [facility]; Protocol Last Admin: 03/02/19 11:50 Dose: 2 units Insulin Detemir (Levemir Vial) 7 units SQ DAILY@0700 [facility] Last Admin: 03/02/19 06:12 Dose: 7 units Methylprednisolone Sodium Succinate (Solu-Medrol -) 40 mg IVPUSH Q6H-IV [facility] Last Admin: 03/02/19 10:10 Dose: 40 mg Morphine Sulfate (Morphine Sulfate) 2 mg IVPUSH Q4H PRN PRN Reason: PAIN LEVEL 6-10 Last Admin: 03/02/19 06:16 Dose: 2 mg Oxycodone HCl (Roxicodone -) 5 mg PO Q4H PRN PRN Reason: PAIN LEVEL 1-5 Stop: 03/03/19 04:00 Last Admin: 03/02/19 10:16 Dose: 5 mg Pancrelipase (Creon Dr 6,000 Units Capsule) 2 cap PO TIDCM [facility] Last Admin: 03/02/19 08:16 Dose: 2 cap Ranitidine HCl (Zantac Oral Solution -) 150 mg PO DAILY [facility] Last Admin: 03/02/19 10:10 Dose: 150 mg Senna (Senna -) 2 tab PO HS PRN PRN Reason: CONSTIPATION Last Admin: 03/01/19 23:10 Dose: 2 tab - Objective Vital Signs: Vital Signs Temperature 97.5 F L 03/02/19 10:00 Pulse Rate 110 H 03/02/19 10:00 Respiratory Rate 20 03/02/19 10:00 Blood Pressure 148/96 03/02/19 10:00 O2 Sat by Pulse Oximetry (%) 100 03/01/19 20:56 Constitutional: Yes: Calm, Thin Eyes: Yes: WNL HENT: Yes: WNL Neck: Yes: WNL Cardiovascular: Yes: Regular Rate and Rhythm, S1, S2 Respiratory: Yes: Rales (few crackles left base) Gastrointestinal: Yes: Normal Bowel Sounds, Soft Extremities: Yes: WNL Edema: No Labs: CBC, BMP 03/02/19 06:30 03/02/19 06:30 INR, PTT INR 1.79 (0.83-1.09) H 02/28/19 05:30 Problem List - Problems (1) Acute on chronic respiratory failure with hypoxemia Code(s): J96.21 - ACUTE AND CHRONIC RESPIRATORY FAILURE WITH HYPOXIA (2) DVT (deep venous thrombosis) Code(s): I82.409 - ACUTE EMBOLISM AND THOMBOS UNSP DEEP VN UNSP LOWER EXTREMITY (3) Diabetes mellitus Code(s): E11.9 - TYPE 2 DIABETES MELLITUS WITHOUT COMPLICATIONS (4) Dyspnea Code(s): R06.00 - DYSPNEA, UNSPECIFIED Qualifiers: Dyspnea type: shortness of breath Qualified Code(s): R06.02 - Shortness of breath; R06.00 - Dyspnea, unspecified; R06.01 - Orthopnea (5) Hypertension Code(s): I10 - ESSENTIAL (PRIMARY) HYPERTENSION (6) Pancreatic cancer metastasized to lung Code(s): C25.9 - MALIGNANT NEOPLASM OF PANCREAS, UNSPECIFIED; C78.00 - SECONDARY MALIGNANT NEOPLASM OF UNSPECIFIED LUNG (7) Pancreatic mass Code(s): K86.9 - DISEASE OF PANCREAS, UNSPECIFIED (8) Pleural effusion Code(s): J90 - PLEURAL EFFUSION, NOT ELSEWHERE CLASSIFIED Assessment/Plan IMP ACUTE ON CHRONIC HYPOXEMIC RESPIRATORY FAILURE MALIGNANT L PLEURAL EFFUSION S/P PLEUR-X METASTATIC PANCREATIC CA LUNG,LIVER METS DVT HLD HTN THROMBOCYOPENIA ELEVATED LACTATE LEVEL PLAN INHALED BRONCHODILATORS O2 MEDROL TAPER PLEUR-X DRAINAGE MONITOR LYTES,PLT CT F/U CHEST X-RAYS PROGNOSIS POOR DR HOPPER Problem List - Problems (1) Acute on chronic respiratory failure with hypoxemia Code(s): J96.21 - ACUTE AND CHRONIC RESPIRATORY FAILURE WITH HYPOXIA (2) DVT (deep venous thrombosis) Code(s): I82.409 - ACUTE EMBOLISM AND THOMBOS UNSP DEEP VN UNSP LOWER EXTREMITY (3) Diabetes mellitus Code(s): E11.9 - TYPE 2 DIABETES MELLITUS WITHOUT COMPLICATIONS (4) Dyspnea Code(s): R06.00 - DYSPNEA, UNSPECIFIED Qualifiers: Dyspnea type: shortness of breath Qualified Code(s): R06.02 - Shortness of breath; R06.00 - Dyspnea, unspecified; R06.01 - Orthopnea (5) Hypertension Code(s): I10 - ESSENTIAL (PRIMARY) HYPERTENSION (6) Pancreatic cancer metastasized to lung Code(s): C25.9 - MALIGNANT NEOPLASM OF PANCREAS, UNSPECIFIED; C78.00 - SECONDARY MALIGNANT NEOPLASM OF UNSPECIFIED LUNG (7) Pancreatic mass Code(s): K86.9 - DISEASE OF PANCREAS, UNSPECIFIED (8) Pleural effusion Code(s): J90 - PLEURAL EFFUSION, NOT ELSEWHERE CLASSIFIED
--- NOTE | 2019-03-02 17:28 | PN ---
Progress Note, Physician Chief Complaint: No new complaints feels comfortable - Current Medication List Current Medications: Active Medications Acetaminophen (Tylenol -) 325 mg PO Q4H PRN PRN Reason: PAIN LEVEL 1-5 Stop: 03/03/19 04:00 Last Admin: 03/02/19 10:16 Dose: 325 mg Albuterol Sulfate (Ventolin 0.083% Nebulizer Soln -) 1 amp NEB Q6H PRN PRN Reason: SHORT OF BREATH/WHEEZING Last Admin: 03/02/19 00:42 Dose: 1 amp Albuterol/Ipratropium (Duoneb -) 1 amp NEB RQID [facility] Last Admin: 03/02/19 16:00 Dose: 1 amp Apixaban (Eliquis -) 5 mg PO BID [facility] Last Admin: 03/02/19 10:11 Dose: 5 mg Docusate Sodium (Colace -) 100 mg PO TID [facility] Sodium Chloride (Normal Saline -) 1,000 mls @ 75 mls/hr IV ASDIR [facility] Last Admin: 03/02/19 15:27 Dose: 75 mls/hr Piperacillin Sod/Tazobactam (Sod 3.375 gm/ Dextrose) 50 mls @ 100 mls/hr IVPB Q8H-IV [facility]; Protocol Last Admin: 03/02/19 17:12 Dose: 100 mls/hr Insulin Aspart (Novolog Vial Sliding Scale -) 1 vial SQ ACHS [facility]; Protocol Last Admin: 03/02/19 17:16 Dose: Not Given Insulin Detemir (Levemir Vial) 7 units SQ DAILY@0700 [facility] Last Admin: 03/02/19 06:12 Dose: 7 units Methylprednisolone Sodium Succinate (Solu-Medrol -) 40 mg IVPUSH Q8H-IV [facility] Last Admin: 03/02/19 17:12 Dose: 40 mg Morphine Sulfate (Morphine Sulfate) 2 mg IVPUSH Q4H PRN PRN Reason: PAIN LEVEL 6-10 Last Admin: 03/02/19 06:16 Dose: 2 mg Oxycodone HCl (Roxicodone -) 5 mg PO Q4H PRN PRN Reason: PAIN LEVEL 1-5 Stop: 03/03/19 04:00 Last Admin: 03/02/19 10:16 Dose: 5 mg Pancrelipase (Creon Dr 6,000 Units Capsule) 2 cap PO TIDCM [facility] Last Admin: 03/02/19 17:12 Dose: 2 cap Ranitidine HCl (Zantac Oral Solution -) 150 mg PO DAILY [facility] Last Admin: 03/02/19 10:10 Dose: 150 mg Senna (Senna -) 2 tab PO HS PRN PRN Reason: CONSTIPATION Last Admin: 03/01/19 23:10 Dose: 2 tab - Objective Vital Signs: Vital Signs Temperature 97.3 F L 03/02/19 15:19 Pulse Rate 104 H 03/02/19 15:19 Respiratory Rate 18 03/02/19 15:19 Blood Pressure 143/91 03/02/19 15:19 O2 Sat by Pulse Oximetry (%) 100 03/02/19 09:00 Elderly F sick lookig not in distress HEENT: m moist, mild aemia FARSHAD: No JVD o Bruit CHEST: AE Decres on Left Left sided Pleurex cathter at place ABD: No distention non tender; EXT: No edema feet GAS LEAK TESTER: AOX3 non focal Labs: CBC, BMP 03/02/19 06:30 03/02/19 06:30 INR, PTT INR 1.79 (0.83-1.09) H 02/28/19 05:30 Problem List - Problems (1) Acute on chronic respiratory failure with hypoxemia Assessment/Plan: Due to Malignant pleural effusion, F/U with Pulmonary consult Code(s): J96.21 - ACUTE AND CHRONIC RESPIRATORY FAILURE WITH HYPOXIA (2) Malignant pleural effusion Code(s): J91.0 - MALIGNANT PLEURAL EFFUSION (3) Hypertension Assessment/Plan: Well controlled cot current meds Code(s): I10 - ESSENTIAL (PRIMARY) HYPERTENSION (4) Pulmonary embolism Assessment/Plan: On AC with Apaxiban Code(s): I26.99 - OTHER PULMONARY EMBOLISM WITHOUT ACUTE COR PULMONALE (5) Pancreatic cancer metastasized to lung Assessment/Plan: On Hospice care no active treatment Code(s): C25.9 - MALIGNANT NEOPLASM OF PANCREAS, UNSPECIFIED; C78.00 - SECONDARY MALIGNANT NEOPLASM OF UNSPECIFIED LUNG
[2019-03-02] MEDS ORDERED: SODIUM CHLORIDE 1,000 ML IV SCH (17:37)
[2019-03-02] MEDS: amLODIPine BESYLATE 5 MG TABLET (FP) PO SCH (18:02)
[2019-03-02] MEDS: DOCUSATE SODIUM 100 MG CAPSULE (FP) PO SCH (21:36)
[2019-03-02] MEDS: SENNOSIDES 8.6MG TABLET (FP) PO PRN (22:10)
[2019-03-03] MEDS: MORPHINE SULFATE 2 MG/ML VIAL IVPUSH PRN ×5 (00:55→22:26)
[2019-03-03] MEDS ORDERED: DEXTROSE 5%-WATER - 50 ML IVPB ONE ×3 (01:11→17:37)
[2019-03-03] MEDS ORDERED: PIPERACILLIN/TAZOBACTAM 3.375 GM VIAL IVPB ONE ×3 (01:11→17:36)
[2019-03-03] MEDS: PIPERACILLIN/TAZOB 3.375 GM 3.375 GM in DEXTROSE 5%-WATER - 50 ML IVPB SCH ×3 (03:15→17:47)
[2019-03-03] MEDS: methylPREDNISolone NA SUCC 40 MG/1 ML VIAL IVPUSH SCH ×3 (03:15→22:28)
[2019-03-03] MEDS: INSULIN (LEVEMIR) 100 UNITS/ML UNITS SQ SCH (06:07)
[2019-03-03] MEDS: INSULIN SLIDING SCALE (NOVOLOG) 1 VIAL SQ SCH ×4 (06:08→22:38)
[2019-03-03] MEDS: DOCUSATE SODIUM 100 MG CAPSULE (FP) PO SCH ×3 (06:08→22:37)
[2019-03-03] MEDS: ALBUTEROL SO4 2.5/IPRATROPIUM 0.5 INH SOL 3 ML VIAL.NEB. NEB SCH ×4 (08:00→20:20)
[2019-03-03 08:08] LABS: ANION GAP 6 MMOL/L (8-16); BLOOD UREA NITROGEN 13 mg/dL (7-18); CALCIUM 8.1 mg/dL (8.5-10.1); CHLORIDE 106 mmol/L (98-107); CO2 27 mmol/L (21-32); CREATININE 0.5 mg/dL (0.55-1.3); GLUCOSE,RANDOM 160 mg/dL (74-106); POTASSIUM 3.7 mmol/L (3.5-5.1); SODIUM 139 mmol/L (136-145)
[2019-03-03] MEDS ORDERED: PT OWN MED DRAWER 7, Y5N ONE (08:12)
[2019-03-03] MEDS: LIPASE/PROTEASE/AMYLASE 6,000 UNIT CAPSULE PO SCH ×3 (08:16→17:47)
[2019-03-03 09:31] LABS: HEMATOCRIT 25.1 % (32.4-45.2); LYMPH % 4.5 % (8-40); MCH 28.8 pg (25.7-33.7); MCHC 31.7 g/dl (32.0-36.0); MEAN CELL VOLUME 90.8 fl (80-96); MEAN PLT VOLUME 8.3 fl (7.5-11.1); MONO % 1.8 % (3.8-10.2); NEUT % 93.7 % (42.8-82.8); PLATELET COUNT 97 K/MM3 (134-434); RBC 2.77 M/mm3 (3.60-5.2); RDW 17.4 % (11.6-15.6); WHITE BLOOD COUNT 12.9 K/mm3 (4.0-10.0)
--- NOTE | 2019-03-03 10:09 | PN ---
Progress Note, Physician Chief Complaint: Feels better - Current Medication List Current Medications: Active Medications Albuterol Sulfate (Ventolin 0.083% Nebulizer Soln -) 1 amp NEB Q6H PRN PRN Reason: SHORT OF BREATH/WHEEZING Last Admin: 03/02/19 00:42 Dose: 1 amp Albuterol/Ipratropium (Duoneb -) 1 amp NEB RQID [facility] Last Admin: 03/03/19 08:00 Dose: 1 amp Amlodipine Besylate (Norvasc -) 5 mg PO DAILY [facility] Last Admin: 03/02/19 18:02 Dose: 5 mg Apixaban (Eliquis -) 5 mg PO BID [facility] Last Admin: 03/02/19 21:36 Dose: 5 mg Docusate Sodium (Colace -) 100 mg PO TID [facility] Last Admin: 03/03/19 06:08 Dose: 100 mg Piperacillin Sod/Tazobactam (Sod 3.375 gm/ Dextrose) 50 mls @ 100 mls/hr IVPB Q8H-IV [facility]; Protocol Last Admin: 03/03/19 03:15 Dose: 100 mls/hr Amino Acids (Clinimix -) 1,000 mls @ 84 mls/hr IV Q12H [facility] Insulin Aspart (Novolog Vial Sliding Scale -) 1 vial SQ ACHS [facility]; Protocol Last Admin: 03/03/19 06:08 Dose: 2 units Insulin Detemir (Levemir Vial) 7 units SQ DAILY@0700 [facility] Last Admin: 03/03/19 06:07 Dose: 7 units Methylprednisolone Sodium Succinate (Solu-Medrol -) 40 mg IVPUSH Q8H-IV [facility] Last Admin: 03/03/19 03:15 Dose: 40 mg Morphine Sulfate (Morphine Sulfate) 2 mg IVPUSH Q4H PRN PRN Reason: PAIN LEVEL 6-10 Last Admin: 03/03/19 08:46 Dose: 2 mg Oxycodone HCl (Roxicodone -) 10 mg PO Q6H PRN PRN Reason: PAIN LEVEL 4 - 6 Pancrelipase (Creon Dr 6,000 Units Capsule) 2 cap PO TIDCM [facility] Last Admin: 03/03/19 08:16 Dose: 2 cap Ranitidine HCl (Zantac Oral Solution -) 150 mg PO DAILY [facility] Last Admin: 03/02/19 10:10 Dose: 150 mg Senna (Senna -) 2 tab PO HS PRN PRN Reason: CONSTIPATION Last Admin: 03/02/19 22:10 Dose: 2 tab - Objective Vital Signs: Vital Signs Temperature 97.8 F 03/03/19 06:00 Pulse Rate 105 H 03/03/19 06:00 Respiratory Rate 20 03/03/19 06:00 Blood Pressure 145/96 03/03/19 06:00 O2 Sat by Pulse Oximetry (%) 100 03/02/19 09:00 Constitutional: Yes: No Distress Eyes: Yes: WNL HENT: Yes: WNL Neck: Yes: WNL Cardiovascular: Yes: WNL Respiratory: Yes: WNL, Dullness Gastrointestinal: Yes: WNL ...Rectal Exam: Yes: WNL Genitourinary: Yes: WNL Breast(s): Yes: WNL Labs: CBC, BMP 03/03/19 07:05 03/03/19 07:05 INR, PTT INR 1.79 (0.83-1.09) H 02/28/19 05:30 Assessment/Plan Drein Lt chest tube Start clinimix
[2019-03-03 11:18] LABS: ANISOCYTOSIS 1+; MACROCYTOSIS 1+; PLATELET ESTIMATE DECREASED
--- NOTE | 2019-03-03 11:24 | PN ---
Progress Note (short form) - Note Progress Note: drained 850 cc from pleurx on 02/28 for repeat drainage today eating but appetite is poor Vital Signs Period Temp Pulse Resp BP Sys/Venegas Pulse Ox Last 24 Hr 97.3 F-97.8 F 104-131 18-20 134-149/82-98 cor-rrr llungs decreased bs at left base abd soft,nt ext no edema CBC, BMP 03/03/19 07:05 03/03/19 07:05 Microbiology 02/27/19 19:20 Blood - Peripheral Venous Blood Culture - Preliminary NO GROWTH OBTAINED AFTER 72 HOURS, INCUBATION TO CONTINUE FOR 2 DAYS. 02/27/19 19:23 Blood - Peripheral Venous Blood Culture - Preliminary NO GROWTH OBTAINED AFTER 72 HOURS, INCUBATION TO CONTINUE FOR 2 DAYS. 03/01/19 14:15 Sputum - Expectorated Gram Stain - Final 03/01/19 14:15 Sputum - Expectorated Sputum Culture - Preliminary NORMAL RESPIRATORY RIGOBERTO a/p leukocytosis-resolving pleural effusion cannot r/o pneumonia (doubt) short course of zosyn-day #3 of 5 for drainage today metastatic pancreatic cancer- palliative care please call back if needed Problem List - Problems (1) SOB (shortness of breath) Code(s): R06.02 - SHORTNESS OF BREATH (2) Malignant pleural effusion Code(s): J91.0 - MALIGNANT PLEURAL EFFUSION (3) Pancreatic cancer metastasized to lung Code(s): C25.9 - MALIGNANT NEOPLASM OF PANCREAS, UNSPECIFIED; C78.00 - SECONDARY MALIGNANT NEOPLASM OF UNSPECIFIED LUNG
[2019-03-03] MEDS: APIXABAN 5 MG TABLET PO SCH ×2 (11:42→22:38)
[2019-03-03] MEDS: oxyCODONE HCL 5 MG TABLET PO PRN (11:42)
[2019-03-03] MEDS: amLODIPine BESYLATE 5 MG TABLET (FP) PO SCH (11:43)
[2019-03-03] MEDS: RANITIDINE HCL 150 MG/10 ML UNIT-DOSE PO SCH (11:43)
--- NOTE | 2019-03-03 12:10 | PN ---
Progress Note (short form) - Note Progress Note: PULMONARY Breathing better. No fevers. Occasional cough. Vital Signs Period Temp Pulse Resp BP Sys/Venegas Pulse Ox Last 24 Hr 97.3 F-97.8 F 104-131 18-20 134-149/82-98 Gen: NAD, cachectic Heart: tachycardic, regular Lung: decreased breath sounds left base Abd: soft, nontender Ext: no edema CBC, BMP 03/03/19 07:05 03/03/19 07:05 Active Medications Albuterol Sulfate (Ventolin 0.083% Nebulizer Soln -) 1 amp NEB Q6H PRN PRN Reason: SHORT OF BREATH/WHEEZING Last Admin: 03/02/19 00:42 Dose: 1 amp Albuterol/Ipratropium (Duoneb -) 1 amp NEB RQID [facility] Last Admin: 03/03/19 08:00 Dose: 1 amp Amlodipine Besylate (Norvasc -) 5 mg PO DAILY [facility] Last Admin: 03/03/19 11:43 Dose: 5 mg Apixaban (Eliquis -) 5 mg PO BID [facility] Last Admin: 03/03/19 11:42 Dose: 5 mg Docusate Sodium (Colace -) 100 mg PO TID [facility] Last Admin: 03/03/19 06:08 Dose: 100 mg Piperacillin Sod/Tazobactam (Sod 3.375 gm/ Dextrose) 50 mls @ 100 mls/hr IVPB Q8H-IV [facility]; Protocol Last Admin: 03/03/19 11:43 Dose: 100 mls/hr Amino Acids (Clinimix -) 1,000 mls @ 84 mls/hr IV Q12H [facility] Insulin Aspart (Novolog Vial Sliding Scale -) 1 vial SQ ACHS [facility]; Protocol Last Admin: 03/03/19 06:08 Dose: 2 units Insulin Detemir (Levemir Vial) 7 units SQ DAILY@0700 [facility] Last Admin: 03/03/19 06:07 Dose: 7 units Methylprednisolone Sodium Succinate (Solu-Medrol -) 40 mg IVPUSH Q8H-IV [facility] Last Admin: 03/03/19 11:43 Dose: 40 mg Morphine Sulfate (Morphine Sulfate) 2 mg IVPUSH Q4H PRN PRN Reason: PAIN LEVEL 6-10 Last Admin: 03/03/19 08:46 Dose: 2 mg Oxycodone HCl (Roxicodone -) 10 mg PO Q6H PRN PRN Reason: PAIN LEVEL 4 - 6 Last Admin: 03/03/19 11:42 Dose: 10 mg Pancrelipase (Creon Dr 6,000 Units Capsule) 2 cap PO TIDCM [facility] Last Admin: 03/03/19 08:16 Dose: 2 cap Ranitidine HCl (Zantac Oral Solution -) 150 mg PO DAILY [facility] Last Admin: 03/03/19 11:43 Dose: 150 mg Senna (Senna -) 2 tab PO HS PRN PRN Reason: CONSTIPATION Last Admin: 03/02/19 22:10 Dose: 2 tab A/P Metastatic Pancreatic Ca Malignant Pleural Effusion s/p Left pleur-x catheter h/o DVT/PE Thrombocytopenia HTN Hyperlipidemia - for pleur-x drainage today - complete empiric antibiotics - pain control - continue anticoagulation - taper off medrol - inhaled bronchodilators as needed
[2019-03-03] MEDS: AMINO ACIDS 4.25%/D5W 1,000 ML IV SCH (12:47)
[2019-03-04] MEDS: AMINO ACIDS 4.25%/D5W 1,000 ML IV SCH ×3 (00:09→22:48)
[2019-03-04] MEDS ORDERED: PIPERACILLIN/TAZOBACTAM 3.375 GM VIAL IVPB ONE ×3 (00:42→17:17)
[2019-03-04] MEDS ORDERED: DEXTROSE 5%-WATER - 50 ML IVPB ONE ×3 (00:42→17:17)
[2019-03-04] MEDS: PIPERACILLIN/TAZOB 3.375 GM 3.375 GM in DEXTROSE 5%-WATER - 50 ML IVPB SCH ×3 (02:02→17:29)
[2019-03-04] MEDS: MORPHINE SULFATE 2 MG/ML VIAL IVPUSH PRN ×4 (04:29→20:35)
[2019-03-04] MEDS: INSULIN (LEVEMIR) 100 UNITS/ML UNITS SQ SCH (07:06)
[2019-03-04] MEDS: DOCUSATE SODIUM 100 MG CAPSULE (FP) PO SCH ×3 (07:06→22:01)
[2019-03-04] MEDS: INSULIN SLIDING SCALE (NOVOLOG) 1 VIAL SQ SCH ×4 (07:06→22:01)
[2019-03-04] MEDS ORDERED: INSULIN (NOVOLOG) ASPART 100 UNITS/ML 10ML VIAL ONE ×2 (07:17→11:49)
[2019-03-04] MEDS: oxyCODONE HCL 5 MG TABLET PO PRN ×2 (08:00→22:11)
[2019-03-04] MEDS ORDERED: PT OWN MED DRAWER 7, Y5N ONE (08:39)
[2019-03-04] MEDS: LIPASE/PROTEASE/AMYLASE 6,000 UNIT CAPSULE PO SCH ×3 (08:44→17:12)
[2019-03-04] MEDS: ALBUTEROL SO4 2.5/IPRATROPIUM 0.5 INH SOL 3 ML VIAL.NEB. NEB SCH ×4 (08:51→20:40)
--- NOTE | 2019-03-04 09:27 | PN ---
Progress Note, Physician Chief Complaint: Feels tired History of Present Illness: Ca pancreas with lungs mets - Current Medication List Current Medications: Active Medications Albuterol Sulfate (Ventolin 0.083% Nebulizer Soln -) 1 amp NEB Q6H PRN PRN Reason: SHORT OF BREATH/WHEEZING Last Admin: 03/02/19 00:42 Dose: 1 amp Albuterol/Ipratropium (Duoneb -) 1 amp NEB RQID [facility] Last Admin: 03/03/19 20:20 Dose: 1 amp Amlodipine Besylate (Norvasc -) 5 mg PO DAILY [facility] Last Admin: 03/03/19 11:43 Dose: 5 mg Apixaban (Eliquis -) 5 mg PO BID [facility] Last Admin: 03/03/19 22:38 Dose: 5 mg Docusate Sodium (Colace -) 100 mg PO TID [facility] Last Admin: 03/04/19 07:06 Dose: 100 mg Piperacillin Sod/Tazobactam (Sod 3.375 gm/ Dextrose) 50 mls @ 100 mls/hr IVPB Q8H-IV [facility]; Protocol Last Admin: 03/04/19 02:02 Dose: 100 mls/hr Amino Acids (Clinimix -) 1,000 mls @ 84 mls/hr IV Q12H [facility] Last Admin: 03/04/19 00:09 Dose: 84 mls/hr Insulin Aspart (Novolog Vial Sliding Scale -) 1 vial SQ ACHS [facility]; Protocol Last Admin: 03/04/19 07:06 Dose: 6 units Insulin Detemir (Levemir Vial) 7 units SQ DAILY@0700 [facility] Last Admin: 03/04/19 07:06 Dose: 7 units Methylprednisolone Sodium Succinate (Solu-Medrol -) 40 mg IVPUSH Q12H [facility] Last Admin: 03/03/19 22:28 Dose: 40 mg Morphine Sulfate (Morphine Sulfate) 2 mg IVPUSH Q4H PRN PRN Reason: PAIN LEVEL 6-10 Last Admin: 03/04/19 04:29 Dose: 2 mg Oxycodone HCl (Roxicodone -) 10 mg PO Q6H PRN PRN Reason: PAIN LEVEL 4 - 6 Last Admin: 03/04/19 08:00 Dose: 10 mg Pancrelipase (Creon Dr 6,000 Units Capsule) 2 cap PO TIDCM [facility] Last Admin: 03/04/19 08:44 Dose: 2 cap Ranitidine HCl (Zantac Oral Solution -) 150 mg PO DAILY PETRA Last Admin: 03/03/19 11:43 Dose: 150 mg Senna (Senna -) 2 tab PO HS PRN PRN Reason: CONSTIPATION Last Admin: 03/02/19 22:10 Dose: 2 tab - Objective Vital Signs: Vital Signs Temperature 97.3 F L 03/04/19 06:00 Pulse Rate 100 H 03/04/19 06:00 Respiratory Rate 20 03/04/19 06:00 Blood Pressure 144/98 03/04/19 06:00 O2 Sat by Pulse Oximetry (%) 95 03/03/19 21:00 Constitutional: Yes: Cachectic Eyes: Yes: WNL HENT: Yes: WNL Neck: Yes: Supple Cardiovascular: Yes: WNL Respiratory: Yes: Poor Air Entry ...Rectal Exam: Yes: Deferred Genitourinary: Yes: WNL Edema: LLE: 1+ Neurological: Yes: Lethargy Labs: CBC, BMP 03/03/19 07:05 03/03/19 07:05 INR, PTT INR 1.79 (0.83-1.09) H 02/28/19 05:30 Assessment/Plan Hospice care when she goes home
[2019-03-04] MEDS: methylPREDNISolone NA SUCC 40 MG/1 ML VIAL IVPUSH SCH ×2 (10:19→22:01)
[2019-03-04] MEDS: APIXABAN 5 MG TABLET PO SCH ×2 (10:19→22:01)
[2019-03-04] MEDS: amLODIPine BESYLATE 5 MG TABLET (FP) PO SCH (10:19)
[2019-03-04] MEDS: RANITIDINE HCL 150 MG/10 ML UNIT-DOSE PO SCH (10:19)
--- NOTE | 2019-03-04 10:44 | CONSULT ---
Admitting History and Physical - Primary Care Physician PCP: Evin Marie - Admission History of Present Illness: The pt is a 63F w/ history of hypertension, diabetes, pancreatic CA initially diagnosed in 2015 with metastatic lung lesions S/p chemo/radiation stopped in April 2018 secondary to episode of shingles, admitted for hypoxic respiratory failure due to worsening pleural effusion , pNA Pt presented with sepsis ,pancreatic cancer with mets to liver and lung, malnutrition, loss of appetite, loss of appetite. Pt noted by RD to be coughing on liquids and diet downgraded to chopped/nectar thick liquid by RD and swallowing evaluation was recommended. Selected Entries 02/28/19 03/01/19 03/01/19 18:00 11:31 14:53 Breakfast 75% Lunch 75% Supper NPO Temperature 03/01/19 03/02/19 03/02/19 18:40 11:37 15:19 Breakfast 75% Lunch 0 Supper 75% Temperature 03/03/19 03/03/19 03/03/19 11:29 15:01 18:40 Breakfast 50% Lunch 50% Supper 50% Temperature 03/04/19 03/04/19 03/04/19 02:00 06:00 09:32 Breakfast Lunch Supper Temperature 97.4 F L 97.3 F L 98.0 F Laboratory Tests 02/28/19 03/02/19 03/03/19 05:30 06:30 07:05 WBC 15.8 H 13.7 H 12.9 H This is my first consult with this pt. History Source: Patient, Family Member Limitations to Obtaining History: Language Barrier - Past Medical History Gastrointestinal: Yes: Other (Pancreatic cancer) - Smoking History Smoking history: Never smoked Have you smoked in the past 12 months: No - Alcohol/Substance Use Hx Alcohol Use: No History - Admission Reason For Visit: DYSPNEA,PLEURAL EFFUSION,SEPSIS,PNEUMONIA - Diagnostics X-ray: Report Reviewed CT Scan: Report Reviewed - General Mental Status: Alert and Oriented, Awake and Alert, Able to Follow Commands Attention: Intact - Hearing Hearing: Normal Speech Evaluation - Communication Primary Language: [place] Oral Expression Ability: Yes: Non-Vocal (Aphonic) - Speech Characteristics Voice Loudness: Severely Soft/Quiet (No phonation- Aphonic-r/o vocal cord paralysis) - Language/Auditory Comprehension Follows: Yes: 2 Stage Simple Commands - Language/Verbal Expression Able to Communicate Wants and Needs: Yes: WNL (Mouths words/Aphonic) - Swallow Evaluation/Bedside Assessment Current Nutritional Intake: [place] Textured Liquids ( per RD downgrade. Receiving Glucerna), Other (chopped per RD downgrade. Receiving Glucerna) Facial Symmetry at Rest: Symmetrical Against Resistance Opening: Normal Against Resistance Closing: Normal Pucker Lips: Normal Smile: Normal Lingual Movement: Symmetric Lingual Speed of Movement: Normal Lingual Movement Strgth Against Opposition: Normal Lingual Movement Characteristics: Normal Laryngeal Movement: Able to Palpate Rate of Intake: WFL Labial Seal: WFL Oral Prep Time: Increased A-P Transit: Impaired Pocketing: None Timing of Swallow: Delayed Coughing/Throat Clear: Yes (Glucerna) Recommendations - Speech Evaluation, Impression/Plan Impression: No phonation-Not audible- Aphonic-r/o vocal cord paralysis. CT chest done- Assessment of Mediastinum limited without contrast, per report. Mouths words. o x 3. c/o Phlegm. Responsive cough with Glucerna (thin liquid)- suspect secondary to impaired adduction of vocal cords with open glottis-r/o vocal cord paralysis - Dysphagia Impressions/Plan Swallowing Skills: Impaired Dysphagia Impressions: Moderate Impairment, Suspect Aspiration *Silent aspiration: cannot be R/O at bedside Recommendations: Modified Barium Swallow (concur) - Recommendations Diet Consistency: Dysphagia Pureed Medication Administration: Crushed with applesauce Liquids: [place] Thick, Other (d/c Glucerna (thin liquid)) Supplement: Magic Cup, Ensure Pudding, Other (2 calHN)
--- NOTE | 2019-03-04 11:20 | PN ---
Progress Note (short form) - Note Progress Note: PULMONARY Left pleur-x drained yesterday draining 750mL, stopped due to pain. Vital Signs Period Temp Pulse Resp BP Sys/Venegas Pulse Ox Last 24 Hr 96.4 F-98.4 F 100-133 18-20 125-144/79-98 95 Gen: NAD, cachectic Heart: tachycardic, regular Lung: decreased breath sounds left base Abd: soft, nontender Ext: no edema CBC, BMP 03/03/19 07:05 03/03/19 07:05 Active Medications Albuterol Sulfate (Ventolin 0.083% Nebulizer Soln -) 1 amp NEB Q6H PRN PRN Reason: SHORT OF BREATH/WHEEZING Last Admin: 03/02/19 00:42 Dose: 1 amp Albuterol/Ipratropium (Duoneb -) 1 amp NEB RQID [facility] Last Admin: 03/03/19 20:20 Dose: 1 amp Amlodipine Besylate (Norvasc -) 5 mg PO DAILY [facility] Last Admin: 03/04/19 10:19 Dose: 5 mg Apixaban (Eliquis -) 5 mg PO BID [facility] Last Admin: 03/04/19 10:19 Dose: 5 mg Docusate Sodium (Colace -) 100 mg PO TID [facility] Last Admin: 03/04/19 07:06 Dose: 100 mg Piperacillin Sod/Tazobactam (Sod 3.375 gm/ Dextrose) 50 mls @ 100 mls/hr IVPB Q8H-IV [facility]; Protocol Last Admin: 03/04/19 10:18 Dose: 100 mls/hr Amino Acids (Clinimix -) 1,000 mls @ 84 mls/hr IV Q12H [facility] Last Admin: 03/04/19 00:09 Dose: 84 mls/hr Insulin Aspart (Novolog Vial Sliding Scale -) 1 vial SQ ACHS [facility]; Protocol Last Admin: 03/04/19 07:06 Dose: 6 units Insulin Detemir (Levemir Vial) 7 units SQ DAILY@0700 [facility] Last Admin: 03/04/19 07:06 Dose: 7 units Methylprednisolone Sodium Succinate (Solu-Medrol -) 40 mg IVPUSH Q12H [facility] Last Admin: 03/04/19 10:19 Dose: 40 mg Morphine Sulfate (Morphine Sulfate) 2 mg IVPUSH Q4H PRN PRN Reason: PAIN LEVEL 6-10 Last Admin: 03/04/19 10:38 Dose: 2 mg Oxycodone HCl (Roxicodone -) 10 mg PO Q6H PRN PRN Reason: PAIN LEVEL 4 - 6 Last Admin: 03/04/19 08:00 Dose: 10 mg Pancrelipase (Creon Dr 6,000 Units Capsule) 2 cap PO TIDCM [facility] Last Admin: 03/04/19 08:44 Dose: 2 cap Ranitidine HCl (Zantac Oral Solution -) 150 mg PO DAILY [facility] Last Admin: 03/04/19 10:19 Dose: 150 mg Senna (Senna -) 2 tab PO HS PRN PRN Reason: CONSTIPATION Last Admin: 03/02/19 22:10 Dose: 2 tab A/P Metastatic Pancreatic Ca Malignant Pleural Effusion s/p Left pleur-x catheter h/o DVT/PE Thrombocytopenia HTN Hyperlipidemia - pleur-x drainage twice/week - complete empiric antibiotics - pain control - continue anticoagulation - taper off medrol - inhaled bronchodilators as needed - agree with home hospice placement
[2019-03-04 12:54] VITALS: BMI 20.2
[2019-03-05] MEDS ORDERED: DEXTROSE 5%-WATER - 50 ML IVPB ONE ×3 (00:20→18:59)
[2019-03-05] MEDS ORDERED: PIPERACILLIN/TAZOBACTAM 3.375 GM VIAL IVPB ONE ×3 (00:20→18:59)
[2019-03-05] MEDS: MORPHINE SULFATE 2 MG/ML VIAL IVPUSH PRN ×5 (00:42→22:00)
[2019-03-05] MEDS: PIPERACILLIN/TAZOB 3.375 GM 3.375 GM in DEXTROSE 5%-WATER - 50 ML IVPB SCH ×3 (01:10→19:02)
[2019-03-05] MEDS: AMINO ACIDS 4.25%/D5W 1,000 ML IV SCH ×3 (05:34→22:11)
[2019-03-05] MEDS: INSULIN SLIDING SCALE (NOVOLOG) 1 VIAL SQ SCH ×4 (06:52→22:01)
[2019-03-05] MEDS: DOCUSATE SODIUM 100 MG CAPSULE (FP) PO SCH ×3 (06:52→22:00)
[2019-03-05] MEDS: INSULIN (LEVEMIR) 100 UNITS/ML UNITS SQ SCH (06:52)
[2019-03-05] MEDS ORDERED: INSULIN (NOVOLOG) ASPART 100 UNITS/ML 10ML VIAL ONE (06:59)
[2019-03-05] MEDS: ALBUTEROL SO4 2.5/IPRATROPIUM 0.5 INH SOL 3 ML VIAL.NEB. NEB SCH ×2 (08:15→11:50)
[2019-03-05] MEDS ORDERED: PT OWN MED DRAWER 7, Y5N ONE ×2 (08:24→08:45)
[2019-03-05] MEDS: LIPASE/PROTEASE/AMYLASE 6,000 UNIT CAPSULE PO SCH ×3 (08:49→17:03)
--- NOTE | 2019-03-05 09:35 | DS ---
Physical Examination Vital Signs: Vital Signs Temperature 98.1 F 03/05/19 09:06 Pulse Rate 110 H 03/05/19 09:06 Respiratory Rate 22 H 03/05/19 09:06 Blood Pressure 150/96 03/05/19 09:06 O2 Sat by Pulse Oximetry (%) 100 03/04/19 21:00 Findings/Remarks: Ca pancreas with mets to the lungs,terminal on hospice care Constitutional: Yes: Cachectic Eyes: Yes: WNL HENT: Yes: WNL Neck: Yes: WNL Cardiovascular: Yes: WNL Respiratory: Yes: Poor Air Entry Gastrointestinal: Yes: WNL ...Rectal Exam: Yes: Deferred Musculoskeletal: Yes: Muscle Weakness Edema: Yes Neurological: Yes: Confusion Labs: CBC, BMP 03/03/19 07:05 03/03/19 07:05 Discharge Summary Reason For Visit: DYSPNEA,PLEURAL EFFUSION,SEPSIS,PNEUMONIA Current Active Problems Acute on chronic respiratory failure with hypoxemia (Acute) Malignant pleural effusion (Acute) Pericardial effusion (Acute) Pneumonia (Acute) SOB (shortness of breath) (Acute) Sepsis (Acute) Condition: Guarded - Instructions - Home Medications Comprehensive Discharge Medication List: Ambulatory Orders Ramipril [Altace] 5 mg PO DAILY 05/16/16 Amlodipine Besylate [Norvasc -] 5 mg PO DAILY 11/28/18 Ranitidine [Zantac -] 150 mg PO DAILY 11/28/18 metFORMIN HCL [Metformin HCl] 500 mg PO BID 11/28/18 Apixaban [Eliquis] 5 mg PO BID 02/10/19 Lipase/Protease/Amylase [Jacklyn Walsh 6,000 Units Capsule] 2 cap PO TIDCM 02/10/19 Oxycodone HCl/Acetaminophen [Percocet 5-325 mg Tablet] 1 tab PO Q4H 02/10/19
[2019-03-05] MEDS ORDERED: FENTANYL PATCH WASTE TD PRN (09:42)
[2019-03-05] MEDS ORDERED: fentaNYL 50mcg/hr PATCH.TD72 TD SCH (09:45)
[2019-03-05] MEDS: RANITIDINE HCL 150 MG/10 ML UNIT-DOSE PO SCH (09:55)
[2019-03-05] MEDS: amLODIPine BESYLATE 5 MG TABLET (FP) PO SCH (09:55)
[2019-03-05] MEDS: APIXABAN 5 MG TABLET PO SCH ×2 (09:55→22:00)
--- NOTE | 2019-03-05 11:04 | PN ---
Progress Note, [employer] - Note Progress Note: Selected Entries 03/04/19 03/04/19 03/04/19 02:00 06:00 09:32 Breakfast Diet Tolerated Lunch Supper Temperature 97.4 F L 97.3 F L 98.0 F 03/04/19 03/04/19 03/04/19 11:49 16:05 18:30 Breakfast 50% Diet Tolerated Fair Poor Poor Lunch 25% Supper 25% Temperature 97.6 F 98.1 F 03/05/19 03/05/19 03/05/19 02:00 06:00 09:06 Breakfast Diet Tolerated Lunch Supper Temperature 97.9 F 97.5 F L 98.1 F 03/05/19 10:26 Breakfast 50% Diet Tolerated Fair Lunch Supper Temperature Laboratory Tests 03/03/19 07:05 WBC 12.9 H Pending d/c home on Home Hospice tomorrow. Family would like MBS before d/c, which I agree with, to determine safest diet, to minimize aspiration risk and SOB/Congestion that aspiration may cause. MBS to be done today
[2019-03-05] MEDS: predniSONE 10 MG TABLET (UD) PO SCH ×2 (13:21→22:00)
[2019-03-06] MEDS ORDERED: DEXTROSE 5%-WATER - 50 ML IVPB ONE ×2 (02:10→10:34)
[2019-03-06] MEDS ORDERED: PIPERACILLIN/TAZOBACTAM 3.375 GM VIAL IVPB ONE ×2 (02:10→10:34)
[2019-03-06] MEDS: AMINO ACIDS 4.25%/D5W 1,000 ML IV SCH ×3 (02:21→22:55)
[2019-03-06] MEDS: MORPHINE SULFATE 2 MG/ML VIAL IVPUSH PRN ×5 (02:22→21:10)
[2019-03-06] MEDS: PIPERACILLIN/TAZOB 3.375 GM 3.375 GM in DEXTROSE 5%-WATER - 50 ML IVPB SCH ×2 (02:22→10:41)
[2019-03-06] MEDS: DOCUSATE SODIUM 100 MG CAPSULE (FP) PO SCH ×3 (06:40→22:54)
[2019-03-06] MEDS: INSULIN (LEVEMIR) 100 UNITS/ML UNITS SQ SCH (06:42)
[2019-03-06] MEDS: INSULIN SLIDING SCALE (NOVOLOG) 1 VIAL SQ SCH ×4 (06:43→22:54)
[2019-03-06] MEDS: LIPASE/PROTEASE/AMYLASE 6,000 UNIT CAPSULE PO SCH ×3 (09:00→18:13)
[2019-03-06] MEDS: predniSONE 10 MG TABLET (UD) PO SCH ×2 (10:40→22:54)
[2019-03-06] MEDS: RANITIDINE HCL 150 MG/10 ML UNIT-DOSE PO SCH ×2 (10:40→10:45)
[2019-03-06] MEDS: amLODIPine BESYLATE 5 MG TABLET (FP) PO SCH (10:40)
[2019-03-06] MEDS: APIXABAN 5 MG TABLET PO SCH ×2 (10:40→22:54)
--- NOTE | 2019-03-06 11:35 | PN ---
Progress Note (short form) - Note Progress Note: PULMONARY c/o significant pain. For pleur-x drainage today. Vital Signs Period Temp Pulse Resp BP Sys/Venegas Pulse Ox Last 24 Hr 97.4 F-98.3 F 95-111 20-20 140-161/93-100 98 Gen: NAD, cachectic Heart: tachycardic, regular Lung: decreased breath sounds left base Abd: soft, nontender Ext: no edema CBC, BMP 03/03/19 07:05 03/03/19 07:05 Active Medications Amlodipine Besylate (Norvasc -) 5 mg PO DAILY [facility] Last Admin: 03/06/19 10:40 Dose: 5 mg Apixaban (Eliquis -) 5 mg PO BID [facility] Last Admin: 03/06/19 10:40 Dose: 5 mg Docusate Sodium (Colace -) 100 mg PO TID [facility] Last Admin: 03/06/19 06:40 Dose: 100 mg Fentanyl (Duragesic 50mcg Patch -) 1 patch TD Q72H [facility] Stop: 03/12/19 09:43 Last Admin: 03/05/19 10:53 Dose: 1 patch Piperacillin Sod/Tazobactam (Sod 3.375 gm/ Dextrose) 50 mls @ 100 mls/hr IVPB Q8H-IV [facility]; Protocol Last Admin: 03/06/19 10:41 Dose: 100 mls/hr Amino Acids (Clinimix -) 1,000 mls @ 84 mls/hr IV Q12H [facility] Last Admin: 03/06/19 02:21 Dose: 84 mls/hr Insulin Aspart (Novolog Vial Sliding Scale -) 1 vial SQ ACHS [facility]; Protocol Last Admin: 03/06/19 06:43 Dose: 8 units Insulin Detemir (Levemir Vial) 7 units SQ DAILY@0700 [facility] Last Admin: 03/06/19 06:42 Dose: 7 units Miscellaneous (Duragesic Patch Waste) 1 each TD PRN PRN PRN Reason: PAIN Morphine Sulfate (Morphine Sulfate) 2 mg IVPUSH Q4H PRN PRN Reason: PAIN LEVEL 6-10 Last Admin: 03/06/19 10:41 Dose: 2 mg Pancrelipase (Creon Dr 6,000 Units Capsule) 2 cap PO TIDCM [facility] Last Admin: 03/06/19 09:00 Dose: 2 cap Prednisone (Deltasone -) 10 mg PO BID [facility] Last Admin: 03/06/19 10:40 Dose: 10 mg Ranitidine HCl (Zantac Oral Solution -) 150 mg PO DAILY [facility] Last Admin: 03/06/19 10:45 Dose: Not Given Senna (Senna -) 2 tab PO HS PRN PRN Reason: CONSTIPATION Last Admin: 03/02/19 22:10 Dose: 2 tab A/P Metastatic Pancreatic Ca Malignant Pleural Effusion s/p Left pleur-x catheter h/o DVT/PE Thrombocytopenia HTN Hyperlipidemia - pleur-x drainage twice/week - complete empiric antibiotics - pain control, will increase fentanyl patch - continue anticoagulation - taper off medrol - inhaled bronchodilators as needed - agree with home hospice placement
[2019-03-06] MEDS ORDERED: FENTANYL PATCH WASTE MC PRN (11:36)
[2019-03-06] MEDS ORDERED: fentaNYL 100mcg/hr PATCH.TD72 TD SCH (11:45)
[2019-03-06] MEDS ORDERED: fentaNYL 75mcg/hr PATCH.TD72 TD SCH (12:00)
[2019-03-06] MEDS ORDERED: PT OWN MED DRAWER 7, Y5N ONE ×2 (12:16→18:11)
--- NOTE | 2019-03-06 14:38 | PN ---
Progress Note, Physician Chief Complaint: Lethargic History of Present Illness: CA of pancreas with lung FIDENCIO. Terminal - Current Medication List Current Medications: Active Medications Amlodipine Besylate (Norvasc -) 5 mg PO DAILY [facility] Last Admin: 03/06/19 10:40 Dose: 5 mg Apixaban (Eliquis -) 5 mg PO BID [facility] Last Admin: 03/06/19 10:40 Dose: 5 mg Docusate Sodium (Colace -) 100 mg PO TID [facility] Last Admin: 03/06/19 13:34 Dose: 100 mg Fentanyl (Duragesic 75mcg Patch -) 1 patch TD Q72H [facility] Last Admin: 03/06/19 12:36 Dose: 1 patch Piperacillin Sod/Tazobactam (Sod 3.375 gm/ Dextrose) 50 mls @ 100 mls/hr IVPB Q8H-IV [facility]; Protocol Last Admin: 03/06/19 10:41 Dose: 100 mls/hr Amino Acids (Clinimix -) 1,000 mls @ 84 mls/hr IV Q12H [facility] Last Admin: 03/06/19 02:21 Dose: 84 mls/hr Insulin Aspart (Novolog Vial Sliding Scale -) 1 vial SQ ACHS [facility]; Protocol Last Admin: 03/06/19 12:14 Dose: 4 units Insulin Detemir (Levemir Vial) 7 units SQ DAILY@0700 [facility] Last Admin: 03/06/19 06:42 Dose: 7 units Miscellaneous (Duragesic Patch Waste) 1 each TD PRN PRN PRN Reason: PAIN Last Admin: 03/06/19 12:38 Dose: 1 each Morphine Sulfate (Morphine Sulfate) 2 mg IVPUSH Q2H PRN PRN Reason: PAIN LEVEL 6-10 Last Admin: 03/06/19 13:34 Dose: 2 mg Pancrelipase (Creon Dr 6,000 Units Capsule) 2 cap PO TIDCM [facility] Last Admin: 03/06/19 12:18 Dose: 2 cap Prednisone (Deltasone -) 10 mg PO BID [facility] Last Admin: 03/06/19 10:40 Dose: 10 mg Ranitidine HCl (Zantac Oral Solution -) 150 mg PO DAILY [facility] Last Admin: 03/06/19 10:45 Dose: Not Given Senna (Senna -) 2 tab PO HS PRN PRN Reason: CONSTIPATION Last Admin: 03/02/19 22:10 Dose: 2 tab - Objective Vital Signs: Vital Signs Temperature 97.8 F 03/06/19 12:45 Pulse Rate 110 H 03/06/19 12:45 Respiratory Rate 20 03/06/19 12:45 Blood Pressure 146/92 03/06/19 12:45 O2 Sat by Pulse Oximetry (%) 98 03/05/19 21:00 Constitutional: Yes: Severe Distress Eyes: Yes: WNL HENT: Yes: WNL Neck: Yes: WNL Cardiovascular: Yes: WNL Respiratory: Yes: Poor Air Entry Gastrointestinal: Yes: Normal Bowel Sounds Musculoskeletal: Yes: Muscle Weakness Labs: CBC, BMP 03/03/19 07:05 03/03/19 07:05 INR, PTT INR 1.79 (0.83-1.09) H 02/28/19 05:30 Assessment/Plan Spoke to family, prognosis poor, patient on fentanyl patch and morphine injection, also on clinimix
[2019-03-06] MEDS: RANITIDINE HCL 150 MG TABLET (FP) PO SCH (22:53)
[2019-03-06] MEDS: SENNOSIDES 8.6MG TABLET (FP) PO PRN (22:54)
[2019-03-07] MEDS: MORPHINE SULFATE 2 MG/ML VIAL IVPUSH PRN ×2 (00:54→06:21)
[2019-03-07] MEDS: AMINO ACIDS 4.25%/D5W 1,000 ML IV SCH (06:21)
[2019-03-07] MEDS: DOCUSATE SODIUM 100 MG CAPSULE (FP) PO SCH ×2 (06:21→14:54)
[2019-03-07] MEDS: INSULIN (LEVEMIR) 100 UNITS/ML UNITS SQ SCH (06:22)
[2019-03-07] MEDS: INSULIN SLIDING SCALE (NOVOLOG) 1 VIAL SQ SCH ×2 (06:23→11:59)
[2019-03-07] MEDS ORDERED: PT OWN MED DRAWER 7, Y5N ONE (08:47)
[2019-03-07] MEDS: LIPASE/PROTEASE/AMYLASE 6,000 UNIT CAPSULE PO SCH ×2 (09:06→12:21)
--- NOTE | 2019-03-07 09:43 | PN ---
Progress Note, Physician Chief Complaint: Lethargic History of Present Illness: On hospis care,family wants to take her home - Current Medication List Current Medications: Active Medications Amlodipine Besylate (Norvasc -) 5 mg PO DAILY [facility] Last Admin: 03/06/19 10:40 Dose: 5 mg Apixaban (Eliquis -) 5 mg PO BID [facility] Last Admin: 03/06/19 22:54 Dose: 5 mg Docusate Sodium (Colace -) 100 mg PO TID [facility] Last Admin: 03/07/19 06:21 Dose: 100 mg Fentanyl (Duragesic 75mcg Patch -) 1 patch TD Q72H [facility] Last Admin: 03/06/19 12:36 Dose: 1 patch Amino Acids (Clinimix -) 1,000 mls @ 84 mls/hr IV Q12H [facility] Last Admin: 03/07/19 06:21 Dose: 84 mls/hr Insulin Aspart (Novolog Vial Sliding Scale -) 1 vial SQ [facility]; Protocol Last Admin: 03/07/19 06:23 Dose: 4 units Insulin Detemir (Levemir Vial) 7 units SQ DAILY@0700 [facility] Last Admin: 03/07/19 06:22 Dose: 7 units Miscellaneous (Duragesic Patch Waste) 1 each TD PRN PRN PRN Reason: PAIN Last Admin: 03/06/19 12:38 Dose: 1 each Morphine Sulfate (Morphine Sulfate) 2 mg IVPUSH Q2H PRN PRN Reason: PAIN LEVEL 6-10 Last Admin: 03/07/19 06:21 Dose: 2 mg Pancrelipase (Creon Dr 6,000 Units Capsule) 2 cap PO TIDCM [facility] Last Admin: 03/07/19 09:06 Dose: 2 cap Prednisone (Deltasone -) 10 mg PO BID [facility] Last Admin: 03/06/19 22:54 Dose: 10 mg Ranitidine HCl (Zantac -) 150 mg PO BID [facility] Last Admin: 03/06/19 22:53 Dose: 150 mg Senna (Senna -) 2 tab PO HS PRN PRN Reason: CONSTIPATION Last Admin: 03/06/19 22:54 Dose: 2 tab - Objective Vital Signs: Vital Signs Temperature 97.5 F L 03/07/19 06:00 Pulse Rate 94 H 03/07/19 06:00 Respiratory Rate 20 03/07/19 06:00 Blood Pressure 126/86 03/07/19 06:00 O2 Sat by Pulse Oximetry (%) 96 03/06/19 21:00 Constitutional: Yes: Cachectic, Pallor Eyes: Yes: WNL HENT: Yes: WNL Neck: Yes: WNL Cardiovascular: Yes: Regular Rate and Rhythm Respiratory: Yes: Poor Air Entry Gastrointestinal: Yes: Normal Bowel Sounds Genitourinary: Yes: WNL Musculoskeletal: Yes: Muscle Weakness Edema: No Psychiatric: Yes: Other (lethargic) Labs: CBC, BMP 03/03/19 07:05 03/03/19 07:05 INR, PTT INR 1.79 (0.83-1.09) H 02/28/19 05:30 Assessment/Plan DC home Hospis care
[2019-03-07] MEDS: amLODIPine BESYLATE 5 MG TABLET (FP) PO SCH (11:07)
[2019-03-07] MEDS: RANITIDINE HCL 150 MG TABLET (FP) PO SCH (11:11)
[2019-03-07] MEDS: APIXABAN 5 MG TABLET PO SCH (11:11)
[2019-03-07] MEDS: predniSONE 10 MG TABLET (UD) PO SCH (11:11)
[2019-03-07] MEDS ORDERED: INSULIN (NOVOLOG) ASPART 100 UNITS/ML 10ML VIAL ONE (12:08)
[2019-03-07 13:13] VITALS: BP 133/81; PULSE 97; TEMP 98
[2019-03-07] MEDS ORDERED: RAMIPRIL 5 MG CAPSULE (FP) PO SCH (15:15)
[2019-03-07] MEDS ORDERED: oxyCODONE HCL 5 MG TABLET PO ONE (15:15)
[2019-03-09] MEDS ORDERED: FENTANYL PATCH WASTE TD PRN (10:00)
== END 2019-03-07 17:13 | disposition hospice, home (50) | DRG 281 ==
LOC: JER 17:42 → JERBED 23:39 → J5S 02-28 10:31
PROVIDERS: ADMIT Internal Medicine; ATTEND Internal Medicine
DX: C25.7 Malignant neoplasm of other parts of pancreas (principal); C78.7 Secondary malignant neoplasm of liver and intrahepatic bile duct; C78.00 Secondary malignant neoplasm of unspecified lung; I10 Essential (primary) hypertension; E78.5 Hyperlipidemia, unspecified; D72.829 Elevated white blood cell count, unspecified; E86.0 Dehydration; J91.0 Malignant pleural effusion; E88.09 Other disorders of plasma-protein metabolism, not elsewhere classified; E46 Unspecified protein-calorie malnutrition; R64 Cachexia; Z68.20 Body mass index [BMI] 20.0-20.9, adult; D69.6 Thrombocytopenia, unspecified; J96.21 Acute and chronic respiratory failure with hypoxia; E11.65 Type 2 diabetes mellitus with hyperglycemia; M54.9 Dorsalgia, unspecified; Z86.711 Personal history of pulmonary embolism; Z86.718 Personal history of other venous thrombosis and embolism; Z51.5 Encounter for palliative care
CPT/HCPCS: 36415; 36600; 71045-TC-FY; 71250-TC; 80048; 80053; 81003; 82540; 82803; 82947; 82962; 83605; 83735; 83880; 84100; 84484; 84520; 85025; 85610; 85730; 87040; 87070; 87077; 87205; 93005; 93010; 94010; 94640; 97116-GP; 97162-GP; 99284-25; J7030